=== PATIENT | female | born 1980 | race African-American/Black ===

== ENCOUNTER 2017-04-29 13:15 | Emergency (ER) | payer SELFPAY, OTHER, MEDICARE ==
[2017-04-29] MEDS ORDERED: HEPARIN (100 UNITS/ML) 5 ML SYG CATHETER (18:30)
== END 2017-04-29 19:25 | disposition home or self-care (01) ==
LOC: E/R 13:15 → FTE 19:25
DX: Z45.2 Encounter for adjustment and management of vascular access device (principal); I50.9 Heart failure, unspecified
CPT/HCPCS: 99282

== ENCOUNTER 2017-06-12 07:15 | Emergency (ER) | payer MEDICARE, OTHER ==
[2017-06-12] MEDS ORDERED: ACETAMINOPHEN 325 MG TAB PO (08:00)
[2017-06-12] MEDS: SOD CHLORIDE 0.9% 1,000 ML IV (08:42)
[2017-06-12] MEDS: DIPHENHYDRAMINE 50 MG INJ IV (08:42)
[2017-06-12] MEDS: HYDROmorphONE 0.5 MG/0.5 ML SYG IV ×2 (08:42→10:20)
[2017-06-12 08:44] LABS: ADD MAN DIFF? NO
[2017-06-12 08:47] LABS: BASOPHILS % 0.3 % (0.0-2.0); EOSINOPHILS # 0.1 10^3/ul (0.0-0.5); EOSINOPHILS % 1.2 % (0.0-7.0); HEMATOCRIT 28.2 % (37.0-47.0); HEMOGLOBIN 10.4 g/dl (12.0-16.0); LYMPHOCYTES # 2.1 10^3/ul (0.8-2.9); LYMPHOCYTES % 18.3 % (15.0-51.0); MEAN CORPUSCULAR HGB CONC 36.9 g/dl (32.0-37.0); MEAN CORPUSCULAR VOLUME 73.2 fl (82.0-101.0); MEAN PLATELET VOLUME 9.2 fl (7.4-10.4); MONOCYTE # 0.7 10^3/ul (0.3-0.9); MONOCYTES % 6.1 % (0.0-11.0); NEUTROPHIL # 8.4 10^3/ul (1.6-7.5); NEUTROPHILS % 73.8 % (39.0-77.0); PLATELET COUNT 270 10^3/UL (140-415); RED BLOOD COUNT 3.85 10^6/ul (4.20-5.40); RED CELL DISTRIBUTION WIDTH 18.6 % (11.5-14.5); RETICULOCYTE COUNT # 0.102 X10^6 (0.020-0.110); RETICULOCYTE COUNT % 2.6 % (0.5-1.5); RETICULOCYTE RBC 3.85
[2017-06-12 08:47] LABS: WHITE BLOOD COUNT 11.3 10^3/ul (4.8-10.8)
[2017-06-12 09:03] LABS: ANION GAP 18 (8-16); BLOOD UREA NITROGEN 7 mg/dl (7-20); CALCIUM 8.9 mg/dl (8.4-10.2); CARBON DIOXIDE 23 mmol/L (21-31); CHLORIDE 106 mmol/L (97-110); CREATININE 0.73 mg/dl (0.44-1.00); GLUCOSE 108 mg/dl (70-220); POTASSIUM 3.5 mmol/L (3.5-5.1); SODIUM 143 mmol/L (135-144)
[2017-06-12 09:24] LABS: TROPONIN-I < 0.012 ng/ml (0.00-0.12)
[2017-06-12] MEDS: HEPARIN (10 UNITS/ML) 5ML SYG CATHETER (11:43)
== END 2017-06-12 12:01 | disposition home or self-care (01) ==
LOC: E/R 07:15
DX: D57.219 Sickle-cell/Hb-C disease with crisis, unspecified (principal); I50.9 Heart failure, unspecified; R40.2142 Coma scale, eyes open, spontaneous, at arrival to emergency department; R40.2252 Coma scale, best verbal response, oriented, at arrival to emergency department; R40.2362 Coma scale, best motor response, obeys commands, at arrival to emergency department; R07.9 Chest pain, unspecified
CPT/HCPCS: 36415; 71045; 80048; 84484; 85025; 85045; 85660; 93005; 96374; 96375; 96376; 99285-25

== ENCOUNTER 2017-06-12 17:26 | Inpatient (IN) | payer MEDICARE, OTHER ==
[2017-06-12] MEDS: SOD CHLORIDE 0.9% 1,000 ML IV ×2 (19:19→20:03)
[2017-06-12] MEDS: HYDROmorphONE 0.5 MG/0.5 ML SYG IV ×2 (19:20→22:55)
[2017-06-12] MEDS: FAMOTIDINE 20 MG INJ IV ×2 (19:20→21:00)
[2017-06-12] MEDS ORDERED: DIPHENHYDRAMINE 50 MG INJ (19:21)
[2017-06-12] MEDS: METOCLOPRAMIDE 10 MG INJ IV ×2 (19:24→22:55)
[2017-06-12 19:41] LABS: ADD MAN DIFF? NO
[2017-06-12 19:47] LABS: BASOPHILS % 0.2 % (0.0-2.0); EOSINOPHILS # 0.1 10^3/ul (0.0-0.5); EOSINOPHILS % 0.4 % (0.0-7.0); HEMOGLOBIN 10.3 g/dl (12.0-16.0); LYMPHOCYTES # 1.2 10^3/ul (0.8-2.9); LYMPHOCYTES % 8.8 % (15.0-51.0); MEAN CORPUSCULAR HEMOGLOBIN 26.8 pg (29.0-33.0); MEAN CORPUSCULAR HGB CONC 36.8 g/dl (32.0-37.0); MEAN CORPUSCULAR VOLUME 72.9 fl (82.0-101.0); MEAN PLATELET VOLUME 9.2 fl (7.4-10.4); MONOCYTE # 0.7 10^3/ul (0.3-0.9); MONOCYTES % 5.2 % (0.0-11.0); NEUTROPHIL # 11.9 10^3/ul (1.6-7.5); NEUTROPHILS % 84.8 % (39.0-77.0); PLATELET COUNT 217 10^3/UL (140-415); RED BLOOD COUNT 3.84 10^6/ul (4.20-5.40); RED CELL DISTRIBUTION WIDTH 18.6 % (11.5-14.5); RETICULOCYTE COUNT # 0.106 X10^6 (0.020-0.110); RETICULOCYTE COUNT % 2.8 % (0.5-1.5); RETICULOCYTE RBC 3.84
[2017-06-12 19:47] LABS: WHITE BLOOD COUNT 14.1 10^3/ul (4.8-10.8)
[2017-06-12 20:11] LABS: LACTIC ACID 1.2 mmol/L (0.5-2.0)
[2017-06-12 20:11] LABS: ALANINE AMINOTRANSFERASE 29 IU/L (13-69); ALBUMIN 4.4 g/dl (3.3-4.9); ALBUMIN/GLOBULIN RATIO 1.33; ALKALINE PHOSPHATASE 90 IU/L (42-121); AMYLASE 96 U/L (11-123); ANION GAP 21 (8-16); ASPARTATE AMINO TRANSFERASE 34 IU/L (15-46); BILIRUBIN,INDIRECT 0.8 mg/dl (0-1.1); BILIRUBIN,TOTAL 0.8 mg/dl (0.2-1.3); BLOOD UREA NITROGEN 4 mg/dl (7-20); CALCIUM 8.8 mg/dl (8.4-10.2); CARBON DIOXIDE 22 mmol/L (21-31); CHLORIDE 105 mmol/L (97-110); CREATININE 0.65 mg/dl (0.44-1.00); GLUCOSE 94 mg/dl (70-220); LIPASE 177 U/L (23-300); SODIUM 144 mmol/L (135-144); TOTAL PROTEIN 7.7 g/dl (6.1-8.1)
[2017-06-12] MEDS ORDERED: ONDANSETRON 4 MG INJ IV (20:30)
[2017-06-12] MEDS ORDERED: ACETAMINOPHEN 325 MG TAB PO (20:30)
[2017-06-12] MEDS: morphine 2 MG INJ IV (22:02)
[2017-06-12] MEDS: DIPHENHYDRAMINE 50 MG INJ IV (22:55)
[2017-06-13] MEDS: morphine 2 MG INJ IV (02:05)
[2017-06-13] MEDS: METOCLOPRAMIDE 10 MG INJ IV ×2 (02:39→10:32)
[2017-06-13] MEDS: DIPHENHYDRAMINE 50 MG INJ IV ×5 (02:40→21:59)
[2017-06-13] MEDS: NACL 0.9% 3 ML SYG IV (02:41)
[2017-06-13] MEDS: HYDROmorphONE 2 MG/ML SYG IV ×5 (06:05→21:59)
[2017-06-13] MEDS: SOD CHLORIDE 0.9% 1,000 ML IV ×3 (06:09→17:41)
[2017-06-13 06:14] LABS: ADD MAN DIFF? NO
[2017-06-13 06:22] LABS: WHITE BLOOD COUNT 13.8 10^3/ul (4.8-10.8)
[2017-06-13 06:22] LABS: BASOPHILS % 0.1 % (0.0-2.0); EOSINOPHILS # 0.1 10^3/ul (0.0-0.5); EOSINOPHILS % 0.7 % (0.0-7.0); HEMATOCRIT 27.2 % (37.0-47.0); HEMOGLOBIN 9.9 g/dl (12.0-16.0); LYMPHOCYTES # 1.9 10^3/ul (0.8-2.9); LYMPHOCYTES % 14.1 % (15.0-51.0); MEAN CORPUSCULAR HEMOGLOBIN 26.8 pg (29.0-33.0); MEAN CORPUSCULAR HGB CONC 36.4 g/dl (32.0-37.0); MEAN CORPUSCULAR VOLUME 73.7 fl (82.0-101.0); MEAN PLATELET VOLUME 9.4 fl (7.4-10.4); MONOCYTE # 0.7 10^3/ul (0.3-0.9); MONOCYTES % 4.9 % (0.0-11.0); NEUTROPHILS % 79.9 % (39.0-77.0); PLATELET COUNT 201 10^3/UL (140-415); RED BLOOD COUNT 3.69 10^6/ul (4.20-5.40); RED CELL DISTRIBUTION WIDTH 18.8 % (11.5-14.5)
[2017-06-13 07:21] LABS: ALANINE AMINOTRANSFERASE 32 IU/L (13-69); ALBUMIN 4.3 g/dl (3.3-4.9); ALKALINE PHOSPHATASE 89 IU/L (42-121); ANION GAP 20 (8-16); ASPARTATE AMINO TRANSFERASE 24 IU/L (15-46); BILIRUBIN,INDIRECT 0.7 mg/dl (0-1.1); BILIRUBIN,TOTAL 0.7 mg/dl (0.2-1.3); BLOOD UREA NITROGEN 3 mg/dl (7-20); CALCIUM 8.6 mg/dl (8.4-10.2); CARBON DIOXIDE 22 mmol/L (21-31); CHLORIDE 107 mmol/L (97-110); CREATININE 0.66 mg/dl (0.44-1.00); GLUCOSE 103 mg/dl (70-220); POTASSIUM 3.6 mmol/L (3.5-5.1); SODIUM 145 mmol/L (135-144); TOTAL PROTEIN 7.6 g/dl (6.1-8.1)
[2017-06-13] MEDS: FAMOTIDINE 20 MG INJ IV ×2 (08:44→21:59)
[2017-06-13] MEDS: ENOXAPARIN 30 MG/0.3 ML SYG SC (08:46)
[2017-06-14] MEDS: HYDROmorphONE 2 MG/ML SYG IV ×6 (01:48→21:24)
[2017-06-14] MEDS: DIPHENHYDRAMINE 50 MG INJ IV ×6 (01:49→21:24)
[2017-06-14] MEDS: SOD CHLORIDE 0.9% 1,000 ML IV ×4 (02:03→16:06)
[2017-06-14 06:13] LABS: ADD MAN DIFF? NO
[2017-06-14 06:22] LABS: WHITE BLOOD COUNT 15.8 10^3/ul (4.8-10.8)
[2017-06-14 06:22] LABS: BASOPHIL # 0.1 10^3/ul (0.0-0.1); BASOPHILS % 0.4 % (0.0-2.0); EOSINOPHILS # 0.5 10^3/ul (0.0-0.5); EOSINOPHILS % 3.4 % (0.0-7.0); HEMATOCRIT 27.4 % (37.0-47.0); LYMPHOCYTES # 3.7 10^3/ul (0.8-2.9); LYMPHOCYTES % 23.4 % (15.0-51.0); MEAN CORPUSCULAR HGB CONC 36.5 g/dl (32.0-37.0); MEAN CORPUSCULAR VOLUME 73.9 fl (82.0-101.0); MEAN PLATELET VOLUME 9.3 fl (7.4-10.4); MONOCYTES % 6.5 % (0.0-11.0); NEUTROPHIL # 10.4 10^3/ul (1.6-7.5); NEUTROPHILS % 65.9 % (39.0-77.0); NUCLEATED RED BLOOD CELLS% 0.1 /100WBC (0.0-0.0); PLATELET COUNT 201 10^3/UL (140-415); RED BLOOD COUNT 3.71 10^6/ul (4.20-5.40)
[2017-06-14 06:38] LABS: ANION GAP 20 (8-16); BLOOD UREA NITROGEN 4 mg/dl (7-20); CALCIUM 8.7 mg/dl (8.4-10.2); CARBON DIOXIDE 22 mmol/L (21-31); CHLORIDE 105 mmol/L (97-110); CREATININE 0.66 mg/dl (0.44-1.00); GLUCOSE 95 mg/dl (70-220); POTASSIUM 3.5 mmol/L (3.5-5.1); SODIUM 143 mmol/L (135-144)
[2017-06-14] MEDS: FAMOTIDINE 20 MG INJ IV ×2 (08:25→20:30)
[2017-06-14] MEDS: ENOXAPARIN 30 MG/0.3 ML SYG SC (08:30)
[2017-06-14] MEDS: ACETAMINOPHEN 325 MG TAB PO (20:30)
[2017-06-14 23:53] LABS: LACTIC ACID 1.1 mmol/L (0.5-2.0)
[2017-06-15] MEDS: DIPHENHYDRAMINE 50 MG INJ IV ×6 (01:16→20:29)
[2017-06-15] MEDS: HYDROmorphONE 2 MG/ML SYG IV ×6 (01:16→20:30)
[2017-06-15] MEDS: SOD CHLORIDE 0.9% 1,000 ML IV ×4 (02:41→11:30)
[2017-06-15] MEDS: DOCUSATE SODIUM 100 MG CAP PO (05:11)
[2017-06-15 06:13] LABS: WHITE BLOOD COUNT 18.6 10^3/ul (4.8-10.8)
[2017-06-15 06:13] LABS: HEMATOCRIT 20.8 % (37.0-47.0); HEMOGLOBIN 7.5 g/dl (12.0-16.0); MEAN CORPUSCULAR HEMOGLOBIN 26.7 pg (29.0-33.0); MEAN CORPUSCULAR HGB CONC 36.1 g/dl (32.0-37.0); MEAN PLATELET VOLUME 9.1 fl (7.4-10.4); NUCLEATED RED BLOOD CELLS% 0.5 /100WBC (0.0-0.0); PLATELET COUNT 133 10^3/UL (140-415); RED BLOOD COUNT 2.81 10^6/ul (4.20-5.40)
[2017-06-15 06:28] LABS: ANION GAP 16 (8-16); BLOOD UREA NITROGEN 4 mg/dl (7-20); CALCIUM 8.2 mg/dl (8.4-10.2); CARBON DIOXIDE 24 mmol/L (21-31); CHLORIDE 106 mmol/L (97-110); CREATININE 0.65 mg/dl (0.44-1.00); GLUCOSE 98 mg/dl (70-220); SODIUM 143 mmol/L (135-144)
[2017-06-15 06:33] LABS: LACTIC ACID 1.7 mmol/L (0.5-2.0)
[2017-06-15 06:35] LABS: POTASSIUM 2.9 mmol/L (3.5-5.1)
[2017-06-15 07:22] LABS: ADD MAN DIFF? YES
[2017-06-15] MEDS ORDERED: LEVOFLOXACIN 500 MG TAB PO (07:30)
[2017-06-15] MEDS: LEVOFLOXACIN 500MG/D5W (PMX) 100 ML IVPB ×2 (07:30→08:11)
[2017-06-15] MEDS: POTASSIUM CHLORIDE (SR) 10 MEQ TAB PO ×2 (08:10→12:05)
[2017-06-15] MEDS: ENOXAPARIN 30 MG/0.3 ML SYG SC (08:12)
[2017-06-15] MEDS: FAMOTIDINE 20 MG INJ IV ×2 (08:12→21:18)
[2017-06-15] MEDS ORDERED: VANCOMYCIN IV PER PHARMACY XX (08:30)
[2017-06-15] MEDS: POTASSIUM CHLORIDE 30 MEQ in SOD CHLORIDE 0.9% 1,000 ML IV (08:31)
[2017-06-15] MEDS: ACETAMINOPHEN 325 MG TAB PO (09:28)
[2017-06-15] MEDS: CEFEPIME 1GM/50 ML (PMX) 50 ML IVPB ×2 (10:04→21:18)
[2017-06-15] MEDS: VANCOMYCIN 2 GM in DEXTROSE 5% 500 ML IVPB (17:11)
[2017-06-15 21:54] LABS: AHG CROSSMATCH 1 1
[2017-06-15] MEDS ORDERED: HYDROmorphONE 4 MG TAB PO (22:30)
[2017-06-15] MEDS ORDERED: VANCOMYCIN 1.5 GM in SOD CHLORIDE 0.9% 250 ML IVPB (22:30)
[2017-06-16] MEDS: DIPHENHYDRAMINE 50 MG INJ IV ×7 (00:31→23:18)
[2017-06-16] MEDS: HYDROmorphONE 2 MG/ML SYG IV ×4 (00:32→11:20)
[2017-06-16] MEDS: POTASSIUM CHLORIDE 30 MEQ in SOD CHLORIDE 0.9% 1,000 ML IV ×4 (01:51→21:42)
[2017-06-16] MEDS: morphine (ER) 15 MG TAB PO ×3 (06:37→21:40)
[2017-06-16] MEDS: VANCOMYCIN 1.5 GM in SOD CHLORIDE 0.9% 250 ML IVPB (06:37)
[2017-06-16 07:45] LABS: ADD MAN DIFF? NO
[2017-06-16 07:54] LABS: BASOPHIL # 0.1 10^3/ul (0.0-0.1); BASOPHILS % 0.4 % (0.0-2.0); EOSINOPHILS # 0.9 10^3/ul (0.0-0.5); EOSINOPHILS % 5.8 % (0.0-7.0); HEMATOCRIT 23.2 % (37.0-47.0); HEMOGLOBIN 8.3 g/dl (12.0-16.0); LYMPHOCYTES # 2.9 10^3/ul (0.8-2.9); LYMPHOCYTES % 18.9 % (15.0-51.0); MEAN CORPUSCULAR HGB CONC 35.8 g/dl (32.0-37.0); MEAN CORPUSCULAR VOLUME 75.6 fl (82.0-101.0); MEAN PLATELET VOLUME 9.5 fl (7.4-10.4); MONOCYTE # 0.9 10^3/ul (0.3-0.9); NEUTROPHIL # 10.4 10^3/ul (1.6-7.5); NEUTROPHILS % 68.4 % (39.0-77.0); NUCLEATED RED BLOOD CELLS # 0.1 10^3/ul (0.0-0.0); NUCLEATED RED BLOOD CELLS% 0.9 /100WBC (0.0-0.0); PLATELET COUNT 147 10^3/UL (140-415); RED BLOOD COUNT 3.07 10^6/ul (4.20-5.40); RED CELL DISTRIBUTION WIDTH 18.9 % (11.5-14.5)
[2017-06-16 07:54] LABS: WHITE BLOOD COUNT 15.2 10^3/ul (4.8-10.8)
[2017-06-16] MEDS: SERTRALINE 100 MG TAB PO (08:13)
[2017-06-16] MEDS: GABAPENTIN 300 MG CAP PO ×3 (08:13→20:51)
[2017-06-16] MEDS: FAMOTIDINE 20 MG INJ IV ×2 (08:13→20:50)
[2017-06-16] MEDS: BUSPIRONE 10 MG TAB PO ×2 (08:13→20:51)
[2017-06-16] MEDS: CEFEPIME 1GM/50 ML (PMX) 50 ML IVPB ×2 (08:14→20:50)
[2017-06-16] MEDS: MULTIVITAMINS THERAPEUTIC TAB PO (08:14)
[2017-06-16 08:15] LABS: LACTIC ACID 0.7 mmol/L (0.5-2.0)
[2017-06-16] MEDS: ENOXAPARIN 30 MG/0.3 ML SYG SC (08:17)
[2017-06-16 08:18] LABS: ANION GAP 15 (8-16); BLOOD UREA NITROGEN 4 mg/dl (7-20); CALCIUM 8.1 mg/dl (8.4-10.2); CARBON DIOXIDE 25 mmol/L (21-31); CHLORIDE 106 mmol/L (97-110); GLUCOSE 82 mg/dl (70-220); POTASSIUM 3.5 mmol/L (3.5-5.1); SODIUM 142 mmol/L (135-144)
[2017-06-16 10:18] LABS: ADD UMIC YES; UR ASCORBIC ACID NEGATIVE (NEGATIVE); UR BACTERIA FEW /HPF (NONE SEEN); UR BILIRUBIN (Dip) NEGATIVE (NEGATIVE); UR BLOOD (Dip) 3+ mg/dL (NEGATIVE); UR CLARITY CLEAR (CLEAR); UR COLOR YELLOW (YELLOW); UR GLUCOSE (Dip) NEGATIVE (NEGATIVE); UR KETONES (Dip) NEGATIVE (NEGATIVE); UR LEUKOCYTE ESTERASE (Dip) NEGATIVE Leu/ul (NEGATIVE); UR NITRITE (Dip) NEGATIVE (NEGATIVE); UR RBC 74 /HPF (0-5); UR SPECIFIC GRAVITY (Dip) 1.008 (1.003-1.030); UR TOTAL PROTEIN (Dip) NEGATIVE (NEGATIVE); UR UROBILINOGEN (Dip) NEGATIVE (NEGATIVE); UR WBC 4 /HPF (0-5)
[2017-06-16] MEDS: ACETAMINOPHEN 325 MG TAB PO (12:29)
[2017-06-16] MEDS: SOD CHLORIDE 0.9% 1,000 ML IV (12:46)
[2017-06-16] MEDS: FUROSEMIDE 40 MG INJ IV (13:09)
[2017-06-16] MEDS: HYDROmorphONE 0.5 MG/0.5 ML SYG IV ×3 (15:22→23:18)
[2017-06-17] MEDS: HYDROmorphONE 0.5 MG/0.5 ML SYG IV ×5 (03:15→20:24)
[2017-06-17] MEDS: DIPHENHYDRAMINE 50 MG INJ IV ×5 (03:15→20:24)
[2017-06-17] MEDS: morphine (ER) 15 MG TAB PO ×3 (05:49→22:27)
[2017-06-17] MEDS: SERTRALINE 100 MG TAB PO (08:43)
[2017-06-17] MEDS: CEFEPIME 1GM/50 ML (PMX) 50 ML IVPB (08:43)
[2017-06-17] MEDS: BUSPIRONE 10 MG TAB PO ×2 (08:43→20:24)
[2017-06-17] MEDS: FAMOTIDINE 20 MG INJ IV ×2 (08:43→20:24)
[2017-06-17] MEDS: GABAPENTIN 300 MG CAP PO ×3 (08:44→20:24)
[2017-06-17] MEDS: MULTIVITAMINS THERAPEUTIC TAB PO (08:45)
[2017-06-17] MEDS: ENOXAPARIN 30 MG/0.3 ML SYG SC (09:17)
[2017-06-17] MEDS: POTASSIUM CHLORIDE 30 MEQ in SOD CHLORIDE 0.9% 1,000 ML IV (13:31)
[2017-06-17 14:10] LABS: ADD MAN DIFF? NO
[2017-06-17 14:12] LABS: BASOPHIL # 0.1 10^3/ul (0.0-0.1); BASOPHILS % 0.3 % (0.0-2.0); EOSINOPHILS # 1.1 10^3/ul (0.0-0.5); EOSINOPHILS % 7.4 % (0.0-7.0); HEMATOCRIT 22.5 % (37.0-47.0); LYMPHOCYTES # 3.4 10^3/ul (0.8-2.9); LYMPHOCYTES % 22.4 % (15.0-51.0); MEAN CORPUSCULAR HEMOGLOBIN 26.8 pg (29.0-33.0); MEAN CORPUSCULAR HGB CONC 35.6 g/dl (32.0-37.0); MEAN CORPUSCULAR VOLUME 75.5 fl (82.0-101.0); MEAN PLATELET VOLUME 9.3 fl (7.4-10.4); MONOCYTE # 0.7 10^3/ul (0.3-0.9); MONOCYTES % 4.8 % (0.0-11.0); NEUTROPHIL # 9.8 10^3/ul (1.6-7.5); NEUTROPHILS % 64.8 % (39.0-77.0); NUCLEATED RED BLOOD CELLS # 0.3 10^3/ul (0.0-0.0); NUCLEATED RED BLOOD CELLS% 1.7 /100WBC (0.0-0.0); PLATELET COUNT 156 10^3/UL (140-415); RED BLOOD COUNT 2.98 10^6/ul (4.20-5.40); RED CELL DISTRIBUTION WIDTH 19.3 % (11.5-14.5)
[2017-06-17 14:12] LABS: WHITE BLOOD COUNT 15.1 10^3/ul (4.8-10.8)
[2017-06-17 14:33] LABS: ANION GAP 13 (8-16); BLOOD UREA NITROGEN 6 mg/dl (7-20); CALCIUM 7.9 mg/dl (8.4-10.2); CARBON DIOXIDE 28 mmol/L (21-31); CHLORIDE 105 mmol/L (97-110); CREATININE 0.71 mg/dl (0.44-1.00); GLUCOSE 123 mg/dl (70-220); POTASSIUM 3.2 mmol/L (3.5-5.1); SODIUM 143 mmol/L (135-144)
[2017-06-17] MEDS: BISACODYL (EC) 5 MG TAB PO (17:42)
[2017-06-17] MEDS: DOCUSATE SODIUM 100 MG CAP PO (20:24)
[2017-06-17] MEDS: CEFAZOLIN 1 GM/50 ML (PMX) 50 ML IVPB (22:26)
[2017-06-17] MEDS: POLYETHYLENE GLYCOL 17 GM PACKET PO (22:26)
[2017-06-17] MEDS: SENNA TAB PO (22:27)
[2017-06-18] MEDS: DIPHENHYDRAMINE 50 MG INJ IV ×6 (00:12→20:35)
[2017-06-18] MEDS: HYDROmorphONE 0.5 MG/0.5 ML SYG IV ×4 (00:12→12:15)
[2017-06-18] MEDS: morphine (ER) 15 MG TAB PO ×3 (06:25→22:04)
[2017-06-18] MEDS: CEFAZOLIN 1 GM/50 ML (PMX) 50 ML IVPB ×3 (06:25→21:59)
[2017-06-18 07:26] LABS: ADD MAN DIFF? NO
[2017-06-18 07:36] LABS: WHITE BLOOD COUNT 13.3 10^3/ul (4.8-10.8)
[2017-06-18 07:36] LABS: BASOPHILS % 0.2 % (0.0-2.0); EOSINOPHILS # 1.1 10^3/ul (0.0-0.5); EOSINOPHILS % 8.2 % (0.0-7.0); HEMATOCRIT 22.3 % (37.0-47.0); LYMPHOCYTES # 2.6 10^3/ul (0.8-2.9); LYMPHOCYTES % 19.8 % (15.0-51.0); MEAN CORPUSCULAR HEMOGLOBIN 27.1 pg (29.0-33.0); MEAN CORPUSCULAR HGB CONC 35.9 g/dl (32.0-37.0); MEAN CORPUSCULAR VOLUME 75.6 fl (82.0-101.0); MEAN PLATELET VOLUME 9.9 fl (7.4-10.4); MONOCYTE # 0.8 10^3/ul (0.3-0.9); MONOCYTES % 5.9 % (0.0-11.0); NEUTROPHIL # 8.8 10^3/ul (1.6-7.5); NEUTROPHILS % 65.6 % (39.0-77.0); NUCLEATED RED BLOOD CELLS # 0.1 10^3/ul (0.0-0.0); NUCLEATED RED BLOOD CELLS% 0.9 /100WBC (0.0-0.0); PLATELET COUNT 192 10^3/UL (140-415); RED BLOOD COUNT 2.95 10^6/ul (4.20-5.40); RED CELL DISTRIBUTION WIDTH 19.6 % (11.5-14.5)
[2017-06-18 07:48] LABS: ANION GAP 13 (8-16); BLOOD UREA NITROGEN 6 mg/dl (7-20); CALCIUM 8.1 mg/dl (8.4-10.2); CARBON DIOXIDE 29 mmol/L (21-31); CHLORIDE 103 mmol/L (97-110); CREATININE 0.62 mg/dl (0.44-1.00); GLUCOSE 147 mg/dl (70-220); POTASSIUM 3.4 mmol/L (3.5-5.1); SODIUM 142 mmol/L (135-144)
[2017-06-18] MEDS: BUSPIRONE 10 MG TAB PO ×2 (08:09→20:41)
[2017-06-18] MEDS: DOCUSATE SODIUM 100 MG CAP PO ×2 (08:09→20:41)
[2017-06-18] MEDS: MULTIVITAMINS THERAPEUTIC TAB PO (08:09)
[2017-06-18] MEDS: SENNA TAB PO ×2 (08:09→20:41)
[2017-06-18] MEDS: GABAPENTIN 300 MG CAP PO ×3 (08:09→20:41)
[2017-06-18] MEDS: POLYETHYLENE GLYCOL 17 GM PACKET PO ×2 (08:10→20:41)
[2017-06-18] MEDS: FAMOTIDINE 20 MG INJ IV ×2 (08:10→20:41)
[2017-06-18] MEDS: POTASSIUM CHLORIDE 30 MEQ in SOD CHLORIDE 0.9% 1,000 ML IV (08:11)
[2017-06-18] MEDS: ENOXAPARIN 30 MG/0.3 ML SYG SC (08:38)
[2017-06-18] MEDS: SERTRALINE 100 MG TAB PO (12:15)
[2017-06-18] MEDS: POTASSIUM CHLORIDE (SR) 20 MEQ TAB PO (12:15)
[2017-06-18] MEDS: HYDROmorphONE 2 MG/ML SYG IV ×2 (16:23→20:36)
[2017-06-18] MEDS: METOCLOPRAMIDE 10 MG INJ IV (16:24)
[2017-06-18] MEDS: ZOLPIDEM 5 MG TAB PO (23:41)
[2017-06-19] MEDS: DIPHENHYDRAMINE 50 MG INJ IV ×6 (00:31→20:46)
[2017-06-19] MEDS: HYDROmorphONE 2 MG/ML SYG IV ×6 (00:34→20:45)
[2017-06-19 05:08] LABS: ADD MAN DIFF? NO
[2017-06-19 05:13] LABS: WHITE BLOOD COUNT 13.4 10^3/ul (4.8-10.8)
[2017-06-19 05:13] LABS: BASOPHILS % 0.3 % (0.0-2.0); EOSINOPHILS # 1.1 10^3/ul (0.0-0.5); HEMATOCRIT 24.9 % (37.0-47.0); HEMOGLOBIN 8.9 g/dl (12.0-16.0); LYMPHOCYTES # 2.6 10^3/ul (0.8-2.9); LYMPHOCYTES % 19.4 % (15.0-51.0); MEAN CORPUSCULAR HEMOGLOBIN 27.1 pg (29.0-33.0); MEAN CORPUSCULAR HGB CONC 35.7 g/dl (32.0-37.0); MEAN CORPUSCULAR VOLUME 75.9 fl (82.0-101.0); MEAN PLATELET VOLUME 9.5 fl (7.4-10.4); MONOCYTE # 0.8 10^3/ul (0.3-0.9); MONOCYTES % 5.6 % (0.0-11.0); NEUTROPHIL # 8.9 10^3/ul (1.6-7.5); NEUTROPHILS % 66.3 % (39.0-77.0); NUCLEATED RED BLOOD CELLS # 0.1 10^3/ul (0.0-0.0); NUCLEATED RED BLOOD CELLS% 0.9 /100WBC (0.0-0.0); PLATELET COUNT 189 10^3/UL (140-415); RED BLOOD COUNT 3.28 10^6/ul (4.20-5.40); RED CELL DISTRIBUTION WIDTH 19.9 % (11.5-14.5)
[2017-06-19 05:28] LABS: ANION GAP 10 (8-16); BLOOD UREA NITROGEN 8 mg/dl (7-20); CALCIUM 8.6 mg/dl (8.4-10.2); CARBON DIOXIDE 33 mmol/L (21-31); CHLORIDE 102 mmol/L (97-110); CREATININE 0.67 mg/dl (0.44-1.00); GLUCOSE 90 mg/dl (70-220); POTASSIUM 4.3 mmol/L (3.5-5.1); SODIUM 141 mmol/L (135-144)
[2017-06-19] MEDS: morphine (ER) 15 MG TAB PO ×3 (06:00→21:55)
[2017-06-19] MEDS: CEFAZOLIN 1 GM/50 ML (PMX) 50 ML IVPB ×3 (06:00→21:55)
[2017-06-19] MEDS: POTASSIUM CHLORIDE 30 MEQ in SOD CHLORIDE 0.9% 1,000 ML IV (06:00)
[2017-06-19 06:38] LABS: MONOTEST Negative (NEG)
[2017-06-19] MEDS: MULTIVITAMINS THERAPEUTIC TAB PO (08:42)
[2017-06-19] MEDS: GABAPENTIN 300 MG CAP PO ×3 (08:42→20:47)
[2017-06-19] MEDS: BUSPIRONE 10 MG TAB PO ×2 (08:43→20:47)
[2017-06-19] MEDS: POLYETHYLENE GLYCOL 17 GM PACKET PO ×2 (08:43→20:47)
[2017-06-19] MEDS: FAMOTIDINE 20 MG INJ IV ×2 (08:43→20:46)
[2017-06-19] MEDS: SENNA TAB PO ×2 (08:43→20:48)
[2017-06-19] MEDS: SERTRALINE 100 MG TAB PO (08:43)
[2017-06-19] MEDS: DOCUSATE SODIUM 100 MG CAP PO ×2 (08:43→20:46)
[2017-06-19] MEDS: ENOXAPARIN 30 MG/0.3 ML SYG SC (08:53)
[2017-06-19 13:16] LABS: PROCALCITONIN 0.16 ng/mL (<0.10)
[2017-06-19] MEDS: ZOLPIDEM 5 MG TAB PO (22:57)
[2017-06-20] MEDS: POTASSIUM CHLORIDE 30 MEQ in SOD CHLORIDE 0.9% 1,000 ML IV ×2 (00:43→23:21)
[2017-06-20] MEDS: DIPHENHYDRAMINE 50 MG INJ IV ×6 (00:43→20:30)
[2017-06-20] MEDS: HYDROmorphONE 2 MG/ML SYG IV ×6 (00:43→20:30)
[2017-06-20] MEDS: morphine (ER) 15 MG TAB PO ×3 (05:58→22:56)
[2017-06-20] MEDS: CEFAZOLIN 1 GM/50 ML (PMX) 50 ML IVPB ×2 (05:58→13:35)
[2017-06-20] MEDS: SERTRALINE 100 MG TAB PO (08:32)
[2017-06-20] MEDS: GABAPENTIN 300 MG CAP PO ×3 (08:32→20:37)
[2017-06-20] MEDS: MULTIVITAMINS THERAPEUTIC TAB PO (08:32)
[2017-06-20] MEDS: SENNA TAB PO ×2 (08:33→21:00)
[2017-06-20] MEDS: BUSPIRONE 10 MG TAB PO ×2 (08:33→22:56)
[2017-06-20] MEDS: DOCUSATE SODIUM 100 MG CAP PO ×2 (08:34→20:37)
[2017-06-20] MEDS: POLYETHYLENE GLYCOL 17 GM PACKET PO ×2 (08:34→20:38)
[2017-06-20] MEDS: FAMOTIDINE 20 MG INJ IV ×2 (08:34→22:56)
[2017-06-20] MEDS: ENOXAPARIN 30 MG/0.3 ML SYG SC (08:40)
[2017-06-20] MEDS: CEFTRIAXONE 1 GM/50 ML (PMX) 50 ML IVPB (21:00)
[2017-06-20] MEDS: LEVOFLOXACIN 500 MG TAB PO ×2 (21:05→22:57)
[2017-06-20] MEDS: ZOLPIDEM 5 MG TAB PO (23:31)
[2017-06-21] MEDS: DIPHENHYDRAMINE 50 MG INJ IV ×6 (00:31→20:38)
[2017-06-21] MEDS: HYDROmorphONE 2 MG/ML SYG IV ×6 (00:32→20:39)
[2017-06-21] MEDS: POTASSIUM CHLORIDE 30 MEQ in SOD CHLORIDE 0.9% 1,000 ML IV (00:40)
[2017-06-21 04:46] LABS: ADD MAN DIFF? NO
[2017-06-21 04:51] LABS: BASOPHILS % 0.3 % (0.0-2.0); EOSINOPHILS # 0.9 10^3/ul (0.0-0.5); HEMATOCRIT 25.1 % (37.0-47.0); HEMOGLOBIN 8.7 g/dl (12.0-16.0); LYMPHOCYTES # 3.8 10^3/ul (0.8-2.9); LYMPHOCYTES % 26.4 % (15.0-51.0); MEAN CORPUSCULAR HEMOGLOBIN 26.8 pg (29.0-33.0); MEAN CORPUSCULAR HGB CONC 34.7 g/dl (32.0-37.0); MEAN CORPUSCULAR VOLUME 77.2 fl (82.0-101.0); MEAN PLATELET VOLUME 9.4 fl (7.4-10.4); MONOCYTE # 0.9 10^3/ul (0.3-0.9); MONOCYTES % 6.6 % (0.0-11.0); NEUTROPHIL # 8.5 10^3/ul (1.6-7.5); NEUTROPHILS % 59.9 % (39.0-77.0); NUCLEATED RED BLOOD CELLS # 0.2 10^3/ul (0.0-0.0); NUCLEATED RED BLOOD CELLS% 1.5 /100WBC (0.0-0.0); PLATELET COUNT 251 10^3/UL (140-415); RED BLOOD COUNT 3.25 10^6/ul (4.20-5.40); RED CELL DISTRIBUTION WIDTH 19.9 % (11.5-14.5)
[2017-06-21 04:51] LABS: WHITE BLOOD COUNT 14.2 10^3/ul (4.8-10.8)
[2017-06-21 05:22] LABS: ANION GAP 14 (8-16); BLOOD UREA NITROGEN 9 mg/dl (7-20); CARBON DIOXIDE 31 mmol/L (21-31); CHLORIDE 100 mmol/L (97-110); CREATININE 0.68 mg/dl (0.44-1.00); GLUCOSE 95 mg/dl (70-220); POTASSIUM 4.4 mmol/L (3.5-5.1); SODIUM 141 mmol/L (135-144)
[2017-06-21] MEDS: morphine (ER) 15 MG TAB PO ×3 (06:17→21:59)
[2017-06-21] MEDS: BUSPIRONE 10 MG TAB PO ×2 (08:28→20:33)
[2017-06-21] MEDS: SENNA TAB PO ×2 (08:32→20:33)
[2017-06-21] MEDS: GABAPENTIN 300 MG CAP PO ×3 (08:32→20:33)
[2017-06-21] MEDS: SERTRALINE 100 MG TAB PO (08:32)
[2017-06-21] MEDS: DOCUSATE SODIUM 100 MG CAP PO ×2 (08:33→20:34)
[2017-06-21] MEDS: MULTIVITAMINS THERAPEUTIC TAB PO (08:33)
[2017-06-21] MEDS: POLYETHYLENE GLYCOL 17 GM PACKET PO ×2 (08:33→20:32)
[2017-06-21] MEDS: ENOXAPARIN 30 MG/0.3 ML SYG SC (08:36)
[2017-06-21] MEDS: FAMOTIDINE 20 MG INJ IV ×2 (08:41→20:38)
[2017-06-21] MEDS: CEFTRIAXONE 1 GM/50 ML (PMX) 50 ML IVPB (20:32)
[2017-06-21] MEDS: ZOLPIDEM 5 MG TAB PO (23:25)
[2017-06-22] MEDS: DIPHENHYDRAMINE 50 MG INJ IV ×6 (00:28→20:28)
[2017-06-22] MEDS: HYDROmorphONE 2 MG/ML SYG IV ×6 (00:28→20:28)
[2017-06-22] MEDS: POTASSIUM CHLORIDE 30 MEQ in SOD CHLORIDE 0.9% 1,000 ML IV ×2 (00:43→23:22)
[2017-06-22 05:20] LABS: HEMATOCRIT 26.6 % (37.0-47.0); HEMOGLOBIN 9.2 g/dl (12.0-16.0); MEAN CORPUSCULAR HEMOGLOBIN 26.7 pg (29.0-33.0); MEAN CORPUSCULAR HGB CONC 34.6 g/dl (32.0-37.0); MEAN CORPUSCULAR VOLUME 77.1 fl (82.0-101.0); MEAN PLATELET VOLUME 9.2 fl (7.4-10.4); NUCLEATED RED BLOOD CELLS% 1.9 /100WBC (0.0-0.0); PLATELET COUNT 295 10^3/UL (140-415); RED BLOOD COUNT 3.45 10^6/ul (4.20-5.40); RED CELL DISTRIBUTION WIDTH 20.6 % (11.5-14.5)
[2017-06-22 05:20] LABS: WHITE BLOOD COUNT 15.1 10^3/ul (4.8-10.8)
[2017-06-22 05:22] LABS: ADD MAN DIFF? YES; POSITIVE DIFF @See below
[2017-06-22 05:43] LABS: ANION GAP 17 (8-16); BLOOD UREA NITROGEN 9 mg/dl (7-20); CALCIUM 9.3 mg/dl (8.4-10.2); CARBON DIOXIDE 30 mmol/L (21-31); CHLORIDE 99 mmol/L (97-110); CREATININE 0.78 mg/dl (0.44-1.00); GLUCOSE 102 mg/dl (70-220); POTASSIUM 4.2 mmol/L (3.5-5.1); SODIUM 142 mmol/L (135-144)
[2017-06-22] MEDS: morphine (ER) 15 MG TAB PO ×3 (05:45→21:48)
[2017-06-22] MEDS: LEVOFLOXACIN 500 MG TAB PO (05:45)
[2017-06-22 08:03] LABS: ANISOCYTOSIS 2+ (0-0); EOSINOPHILS % (M) 7 % (0-7); ERYTHROBLAST% (NRBC) (M) 3 % (0-0); GIANT THROMBO% (M) 3 % (0-0); HYPOCHROMASIA 2+ (0-0); LYMPHOCYTES #M 4.2 10^3/ul (0.8-2.9); LYMPHOCYTES % (M) 28 % (15-51); METAMYELOCYTES #M 0.1 10^3/ul (0.0-0.0); METAMYELOCYTES %M 1 % (0-0); MICROCYTOSIS 1+ (0-0); MONOCYTE #M 0.9 10^3/ul (0.3-0.9); MONOCYTES % (M) 6 % (0-11); PLATELET ESTIMATE NORMAL; POIKILOCYTOSIS 1+ (0-0); POLYCHROMASIA 2+ (0-0); REACTIVE LYMPHOCYTES #M 0.1 10^3/ul (0.0-0.0); REACTIVE LYMPHOCYTES% (M) 1 % (0-0); SEGMENTED NEUTROPHILS (M) % 57 % (39-77); SMUDGE%M 2 % (0-0); TARGET CELLS 2+ (0-0)
[2017-06-22] MEDS: FAMOTIDINE 20 MG INJ IV ×2 (08:31→20:28)
[2017-06-22] MEDS: POLYETHYLENE GLYCOL 17 GM PACKET PO ×2 (08:32→20:27)
[2017-06-22] MEDS: DOCUSATE SODIUM 100 MG CAP PO ×2 (08:33→20:25)
[2017-06-22] MEDS: SERTRALINE 100 MG TAB PO (08:33)
[2017-06-22] MEDS: BUSPIRONE 10 MG TAB PO ×2 (08:33→20:25)
[2017-06-22] MEDS: GABAPENTIN 300 MG CAP PO ×3 (08:33→20:25)
[2017-06-22] MEDS: MULTIVITAMINS THERAPEUTIC TAB PO (08:33)
[2017-06-22] MEDS: SENNA TAB PO ×2 (08:33→20:25)
[2017-06-22] MEDS: ENOXAPARIN 30 MG/0.3 ML SYG SC (08:42)
[2017-06-22] MEDS: CEFTRIAXONE 1 GM/50 ML (PMX) 50 ML IVPB (20:28)
[2017-06-22] MEDS: ZOLPIDEM 5 MG TAB PO (23:22)
[2017-06-23] MEDS: DIPHENHYDRAMINE 50 MG INJ IV ×6 (00:18→20:40)
[2017-06-23] MEDS: HYDROmorphONE 2 MG/ML SYG IV ×6 (00:18→20:33)
[2017-06-23 04:29] LABS: ADD UMIC NO; UR ASCORBIC ACID NEGATIVE (NEGATIVE); UR BILIRUBIN (Dip) NEGATIVE (NEGATIVE); UR BLOOD (Dip) NEGATIVE (NEGATIVE); UR CLARITY CLEAR (CLEAR); UR COLOR YELLOW (YELLOW); UR GLUCOSE (Dip) NEGATIVE (NEGATIVE); UR KETONES (Dip) NEGATIVE (NEGATIVE); UR LEUKOCYTE ESTERASE (Dip) NEGATIVE Leu/ul (NEGATIVE); UR NITRITE (Dip) NEGATIVE (NEGATIVE); UR SPECIFIC GRAVITY (Dip) 1.009 (1.003-1.030); UR TOTAL PROTEIN (Dip) NEGATIVE (NEGATIVE); UR UROBILINOGEN (Dip) NEGATIVE (NEGATIVE)
[2017-06-23 05:43] LABS: ADD MAN DIFF? NO
[2017-06-23 05:51] LABS: WHITE BLOOD COUNT 14.3 10^3/ul (4.8-10.8)
[2017-06-23 05:51] LABS: BASOPHILS % 0.3 % (0.0-2.0); EOSINOPHILS # 0.9 10^3/ul (0.0-0.5); EOSINOPHILS % 5.9 % (0.0-7.0); LYMPHOCYTES # 4.2 10^3/ul (0.8-2.9); LYMPHOCYTES % 29.6 % (15.0-51.0); MEAN CORPUSCULAR HEMOGLOBIN 26.8 pg (29.0-33.0); MEAN CORPUSCULAR HGB CONC 34.6 g/dl (32.0-37.0); MEAN CORPUSCULAR VOLUME 77.4 fl (82.0-101.0); MEAN PLATELET VOLUME 9.4 fl (7.4-10.4); MONOCYTE # 1.2 10^3/ul (0.3-0.9); MONOCYTES % 8.2 % (0.0-11.0); NEUTROPHILS % 55.6 % (39.0-77.0); NUCLEATED RED BLOOD CELLS # 0.1 10^3/ul (0.0-0.0); NUCLEATED RED BLOOD CELLS% 0.8 /100WBC (0.0-0.0); PLATELET COUNT 332 10^3/UL (140-415); RED BLOOD COUNT 3.36 10^6/ul (4.20-5.40); RED CELL DISTRIBUTION WIDTH 20.9 % (11.5-14.5)
[2017-06-23] MEDS: morphine (ER) 15 MG TAB PO ×3 (06:00→22:08)
[2017-06-23] MEDS: LEVOFLOXACIN 500 MG TAB PO (06:00)
[2017-06-23 06:09] LABS: ANION GAP 15 (8-16); BLOOD UREA NITROGEN 9 mg/dl (7-20); CARBON DIOXIDE 29 mmol/L (21-31); CHLORIDE 102 mmol/L (97-110); CREATININE 0.71 mg/dl (0.44-1.00); GLUCOSE 88 mg/dl (70-220); POTASSIUM 4.4 mmol/L (3.5-5.1); SODIUM 142 mmol/L (135-144)
[2017-06-23] MEDS: SERTRALINE 100 MG TAB PO (08:33)
[2017-06-23] MEDS: MULTIVITAMINS THERAPEUTIC TAB PO (08:33)
[2017-06-23] MEDS: POLYETHYLENE GLYCOL 17 GM PACKET PO ×2 (08:33→20:33)
[2017-06-23] MEDS: GABAPENTIN 300 MG CAP PO ×3 (08:33→20:29)
[2017-06-23] MEDS: BUSPIRONE 10 MG TAB PO ×2 (08:33→20:29)
[2017-06-23] MEDS: SENNA TAB PO ×2 (08:33→20:29)
[2017-06-23] MEDS: DOCUSATE SODIUM 100 MG CAP PO ×2 (08:33→20:29)
[2017-06-23] MEDS: FAMOTIDINE 20 MG INJ IV ×2 (08:34→20:28)
[2017-06-23] MEDS: ENOXAPARIN 30 MG/0.3 ML SYG SC (08:41)
[2017-06-23] MEDS: POTASSIUM CHLORIDE 30 MEQ in SOD CHLORIDE 0.9% 1,000 ML IV (20:28)
[2017-06-23] MEDS: CEFTRIAXONE 1 GM/50 ML (PMX) 50 ML IVPB (20:34)
[2017-06-23] MEDS: ZOLPIDEM 5 MG TAB PO (23:20)
[2017-06-23] MEDS: OSELTAMIVIR 75 MG CAP PO (23:20)
[2017-06-24] MEDS: HYDROmorphONE 2 MG/ML SYG IV ×6 (00:35→20:29)
[2017-06-24] MEDS: DIPHENHYDRAMINE 50 MG INJ IV ×6 (00:36→20:29)
[2017-06-24 05:08] LABS: ADD MAN DIFF? NO
[2017-06-24 05:13] LABS: BASOPHILS % 0.3 % (0.0-2.0); EOSINOPHILS # 0.8 10^3/ul (0.0-0.5); EOSINOPHILS % 6.9 % (0.0-7.0); HEMATOCRIT 24.4 % (37.0-47.0); HEMOGLOBIN 8.7 g/dl (12.0-16.0); LYMPHOCYTES # 3.3 10^3/ul (0.8-2.9); LYMPHOCYTES % 27.6 % (15.0-51.0); MEAN CORPUSCULAR HEMOGLOBIN 27.5 pg (29.0-33.0); MEAN CORPUSCULAR HGB CONC 35.7 g/dl (32.0-37.0); MEAN CORPUSCULAR VOLUME 77.2 fl (82.0-101.0); MONOCYTE # 0.9 10^3/ul (0.3-0.9); MONOCYTES % 7.6 % (0.0-11.0); NEUTROPHIL # 6.8 10^3/ul (1.6-7.5); NEUTROPHILS % 57.2 % (39.0-77.0); NUCLEATED RED BLOOD CELLS% 0.3 /100WBC (0.0-0.0); PLATELET COUNT 351 10^3/UL (140-415); RED BLOOD COUNT 3.16 10^6/ul (4.20-5.40); RED CELL DISTRIBUTION WIDTH 20.6 % (11.5-14.5)
[2017-06-24 05:13] LABS: WHITE BLOOD COUNT 11.9 10^3/ul (4.8-10.8)
[2017-06-24 05:31] LABS: ANION GAP 15 (8-16); BLOOD UREA NITROGEN 10 mg/dl (7-20); CALCIUM 8.6 mg/dl (8.4-10.2); CARBON DIOXIDE 29 mmol/L (21-31); CHLORIDE 102 mmol/L (97-110); GLUCOSE 85 mg/dl (70-220); POTASSIUM 4.1 mmol/L (3.5-5.1); SODIUM 142 mmol/L (135-144)
[2017-06-24] MEDS: morphine (ER) 15 MG TAB PO ×3 (06:09→21:47)
[2017-06-24] MEDS: LEVOFLOXACIN 500 MG TAB PO (06:09)
[2017-06-24] MEDS: FAMOTIDINE 20 MG INJ IV ×2 (08:24→21:37)
[2017-06-24] MEDS: BUSPIRONE 10 MG TAB PO ×2 (08:29→21:38)
[2017-06-24] MEDS: GABAPENTIN 300 MG CAP PO ×3 (08:29→21:37)
[2017-06-24] MEDS: SERTRALINE 100 MG TAB PO (08:30)
[2017-06-24] MEDS: POLYETHYLENE GLYCOL 17 GM PACKET PO ×2 (08:30→21:37)
[2017-06-24] MEDS: OSELTAMIVIR 75 MG CAP PO ×2 (08:30→21:38)
[2017-06-24] MEDS: MULTIVITAMINS THERAPEUTIC TAB PO (08:30)
[2017-06-24] MEDS: DOCUSATE SODIUM 100 MG CAP PO ×2 (08:30→21:38)
[2017-06-24] MEDS: SENNA TAB PO ×2 (08:30→21:39)
[2017-06-24] MEDS: ENOXAPARIN 30 MG/0.3 ML SYG SC (08:41)
[2017-06-24] MEDS: POTASSIUM CHLORIDE 30 MEQ in SOD CHLORIDE 0.9% 1,000 ML IV ×2 (12:54→18:17)
[2017-06-24] MEDS: ZOLPIDEM 5 MG TAB PO (23:18)
[2017-06-25] MEDS: HYDROmorphONE 2 MG/ML SYG IV ×6 (00:26→20:22)
[2017-06-25] MEDS: DIPHENHYDRAMINE 50 MG INJ IV ×6 (00:27→20:22)
[2017-06-25] MEDS: LEVOFLOXACIN 500 MG TAB PO (05:57)
[2017-06-25] MEDS: morphine (ER) 15 MG TAB PO ×3 (05:57→21:58)
[2017-06-25] MEDS: MULTIVITAMINS THERAPEUTIC TAB PO (08:22)
[2017-06-25] MEDS: SENNA TAB PO ×2 (08:22→20:28)
[2017-06-25] MEDS: OSELTAMIVIR 75 MG CAP PO ×2 (08:22→20:29)
[2017-06-25] MEDS: DOCUSATE SODIUM 100 MG CAP PO ×2 (08:22→20:30)
[2017-06-25] MEDS: BUSPIRONE 10 MG TAB PO ×2 (08:22→20:30)
[2017-06-25] MEDS: FAMOTIDINE 20 MG INJ IV ×2 (08:22→20:28)
[2017-06-25] MEDS: GABAPENTIN 300 MG CAP PO ×3 (08:22→20:28)
[2017-06-25] MEDS: SERTRALINE 100 MG TAB PO (08:22)
[2017-06-25] MEDS: POLYETHYLENE GLYCOL 17 GM PACKET PO ×2 (08:23→20:29)
[2017-06-25] MEDS: ENOXAPARIN 30 MG/0.3 ML SYG SC (08:32)
[2017-06-25] MEDS: POTASSIUM CHLORIDE 30 MEQ in SOD CHLORIDE 0.9% 1,000 ML IV (14:50)
[2017-06-25] MEDS: ZOLPIDEM 5 MG TAB PO (23:26)
[2017-06-26] MEDS: DIPHENHYDRAMINE 50 MG INJ IV ×6 (00:21→20:21)
[2017-06-26] MEDS: HYDROmorphONE 2 MG/ML SYG IV ×6 (00:21→20:21)
[2017-06-26] MEDS: morphine (ER) 15 MG TAB PO ×3 (06:16→21:56)
[2017-06-26] MEDS: LEVOFLOXACIN 500 MG TAB PO (06:16)
[2017-06-26] MEDS: FAMOTIDINE 20 MG INJ IV ×2 (08:26→20:39)
[2017-06-26] MEDS: DOCUSATE SODIUM 100 MG CAP PO ×2 (08:29→20:40)
[2017-06-26] MEDS: BUSPIRONE 10 MG TAB PO ×2 (08:29→20:39)
[2017-06-26] MEDS: OSELTAMIVIR 75 MG CAP PO ×2 (08:30→20:39)
[2017-06-26] MEDS: POLYETHYLENE GLYCOL 17 GM PACKET PO ×2 (08:30→20:39)
[2017-06-26] MEDS: GABAPENTIN 300 MG CAP PO ×3 (08:30→20:40)
[2017-06-26] MEDS: SENNA TAB PO ×2 (08:30→20:40)
[2017-06-26] MEDS: MULTIVITAMINS THERAPEUTIC TAB PO (08:30)
[2017-06-26] MEDS: SERTRALINE 100 MG TAB PO (08:31)
[2017-06-26] MEDS: ENOXAPARIN 30 MG/0.3 ML SYG SC (08:36)
[2017-06-26] MEDS: POTASSIUM CHLORIDE 30 MEQ in SOD CHLORIDE 0.9% 1,000 ML IV (14:05)
[2017-06-26] MEDS: ZOLPIDEM 5 MG TAB PO (23:04)
[2017-06-27] MEDS: DIPHENHYDRAMINE 50 MG INJ IV ×6 (00:29→20:18)
[2017-06-27] MEDS: HYDROmorphONE 2 MG/ML SYG IV ×6 (00:30→20:18)
[2017-06-27 05:08] LABS: ADD MAN DIFF? NO
[2017-06-27 05:14] LABS: BASOPHILS % 0.4 % (0.0-2.0); EOSINOPHILS # 1.2 10^3/ul (0.0-0.5); EOSINOPHILS % 11.2 % (0.0-7.0); HEMATOCRIT 23.9 % (37.0-47.0); HEMOGLOBIN 8.4 g/dl (12.0-16.0); LYMPHOCYTES # 3.1 10^3/ul (0.8-2.9); LYMPHOCYTES % 28.8 % (15.0-51.0); MEAN CORPUSCULAR HEMOGLOBIN 26.9 pg (29.0-33.0); MEAN CORPUSCULAR HGB CONC 35.1 g/dl (32.0-37.0); MEAN CORPUSCULAR VOLUME 76.6 fl (82.0-101.0); MONOCYTE # 0.7 10^3/ul (0.3-0.9); MONOCYTES % 6.2 % (0.0-11.0); NEUTROPHIL # 5.6 10^3/ul (1.6-7.5); NUCLEATED RED BLOOD CELLS% 0.2 /100WBC (0.0-0.0); PLATELET COUNT 328 10^3/UL (140-415); RED BLOOD COUNT 3.12 10^6/ul (4.20-5.40); RED CELL DISTRIBUTION WIDTH 20.1 % (11.5-14.5)
[2017-06-27 05:14] LABS: WHITE BLOOD COUNT 10.6 10^3/ul (4.8-10.8)
[2017-06-27] MEDS: LEVOFLOXACIN 500 MG TAB PO (05:37)
[2017-06-27] MEDS: morphine (ER) 15 MG TAB PO ×3 (05:38→21:52)
[2017-06-27 05:47] LABS: ANION GAP 16 (8-16); BLOOD UREA NITROGEN 9 mg/dl (7-20); CALCIUM 8.9 mg/dl (8.4-10.2); CARBON DIOXIDE 29 mmol/L (21-31); CHLORIDE 103 mmol/L (97-110); CREATININE 0.73 mg/dl (0.44-1.00); GLUCOSE 87 mg/dl (70-220); SODIUM 144 mmol/L (135-144)
[2017-06-27] MEDS: FAMOTIDINE 20 MG INJ IV ×2 (08:34→20:17)
[2017-06-27] MEDS: DOCUSATE SODIUM 100 MG CAP PO ×2 (08:35→20:18)
[2017-06-27] MEDS: BUSPIRONE 10 MG TAB PO ×2 (08:36→20:17)
[2017-06-27] MEDS: SENNA TAB PO ×2 (08:36→20:17)
[2017-06-27] MEDS: GABAPENTIN 300 MG CAP PO ×3 (08:36→20:17)
[2017-06-27] MEDS: OSELTAMIVIR 75 MG CAP PO ×2 (08:36→20:18)
[2017-06-27] MEDS: MULTIVITAMINS THERAPEUTIC TAB PO (08:36)
[2017-06-27] MEDS: SERTRALINE 100 MG TAB PO (08:36)
[2017-06-27] MEDS: POLYETHYLENE GLYCOL 17 GM PACKET PO ×2 (08:37→20:18)
[2017-06-27] MEDS: ENOXAPARIN 30 MG/0.3 ML SYG SC (08:38)
[2017-06-27] MEDS: POTASSIUM CHLORIDE 30 MEQ in SOD CHLORIDE 0.9% 1,000 ML IV (08:40)
[2017-06-27] MEDS: ZOLPIDEM 5 MG TAB PO (22:59)
[2017-06-28] MEDS: HYDROmorphONE 2 MG/ML SYG IV ×5 (04:21→20:19)
[2017-06-28] MEDS: DIPHENHYDRAMINE 50 MG INJ IV ×5 (04:21→20:18)
[2017-06-28 05:16] LABS: ADD MAN DIFF? NO
[2017-06-28 05:20] LABS: WHITE BLOOD COUNT 11.9 10^3/ul (4.8-10.8)
[2017-06-28 05:20] LABS: BASOPHILS % 0.3 % (0.0-2.0); EOSINOPHILS # 1.5 10^3/ul (0.0-0.5); EOSINOPHILS % 12.2 % (0.0-7.0); HEMATOCRIT 23.9 % (37.0-47.0); HEMOGLOBIN 8.7 g/dl (12.0-16.0); LYMPHOCYTES # 3.1 10^3/ul (0.8-2.9); LYMPHOCYTES % 25.8 % (15.0-51.0); MEAN CORPUSCULAR HEMOGLOBIN 27.7 pg (29.0-33.0); MEAN CORPUSCULAR HGB CONC 36.4 g/dl (32.0-37.0); MEAN CORPUSCULAR VOLUME 76.1 fl (82.0-101.0); MEAN PLATELET VOLUME 9.4 fl (7.4-10.4); MONOCYTE # 0.9 10^3/ul (0.3-0.9); MONOCYTES % 7.6 % (0.0-11.0); NEUTROPHIL # 6.4 10^3/ul (1.6-7.5); NEUTROPHILS % 53.8 % (39.0-77.0); NUCLEATED RED BLOOD CELLS% 0.2 /100WBC (0.0-0.0); PLATELET COUNT 365 10^3/UL (140-415); RED BLOOD COUNT 3.14 10^6/ul (4.20-5.40); RED CELL DISTRIBUTION WIDTH 20.3 % (11.5-14.5)
[2017-06-28] MEDS: morphine (ER) 15 MG TAB PO ×3 (05:40→21:49)
[2017-06-28] MEDS: LEVOFLOXACIN 500 MG TAB PO (05:41)
[2017-06-28 05:52] LABS: ANION GAP 14 (8-16); BLOOD UREA NITROGEN 10 mg/dl (7-20); CARBON DIOXIDE 28 mmol/L (21-31); CHLORIDE 103 mmol/L (97-110); CREATININE 0.71 mg/dl (0.44-1.00); GLUCOSE 77 mg/dl (70-220); SODIUM 141 mmol/L (135-144)
[2017-06-28] MEDS: FAMOTIDINE 20 MG INJ IV ×2 (08:16→21:49)
[2017-06-28] MEDS: DOCUSATE SODIUM 100 MG CAP PO ×2 (08:18→20:15)
[2017-06-28] MEDS: BUSPIRONE 10 MG TAB PO ×2 (08:18→21:48)
[2017-06-28] MEDS: SERTRALINE 100 MG TAB PO (08:19)
[2017-06-28] MEDS: SENNA TAB PO ×2 (08:19→20:17)
[2017-06-28] MEDS: POLYETHYLENE GLYCOL 17 GM PACKET PO ×2 (08:19→20:14)
[2017-06-28] MEDS: GABAPENTIN 300 MG CAP PO ×3 (08:19→20:17)
[2017-06-28] MEDS: MULTIVITAMINS THERAPEUTIC TAB PO (08:19)
[2017-06-28] MEDS: OSELTAMIVIR 75 MG CAP PO ×2 (08:20→21:48)
[2017-06-28] MEDS: ENOXAPARIN 30 MG/0.3 ML SYG SC (08:30)
[2017-06-28] MEDS: POTASSIUM CHLORIDE 30 MEQ in SOD CHLORIDE 0.9% 1,000 ML IV (13:01)
[2017-06-28] MEDS: ZOLPIDEM 5 MG TAB PO (23:18)
[2017-06-29] MEDS: DIPHENHYDRAMINE 50 MG INJ IV ×6 (00:24→20:18)
[2017-06-29] MEDS: HYDROmorphONE 2 MG/ML SYG IV ×6 (00:24→20:18)
[2017-06-29 05:29] LABS: ANION GAP 14 (8-16); BLOOD UREA NITROGEN 9 mg/dl (7-20); CALCIUM 9.2 mg/dl (8.4-10.2); CARBON DIOXIDE 28 mmol/L (21-31); CHLORIDE 104 mmol/L (97-110); CREATININE 0.74 mg/dl (0.44-1.00); GLUCOSE 88 mg/dl (70-220); POTASSIUM 4.2 mmol/L (3.5-5.1); SODIUM 142 mmol/L (135-144)
[2017-06-29 05:34] LABS: ADD MAN DIFF? NO
[2017-06-29 05:38] LABS: WHITE BLOOD COUNT 13.2 10^3/ul (4.8-10.8)
[2017-06-29 05:38] LABS: BASOPHILS % 0.3 % (0.0-2.0); EOSINOPHILS # 1.3 10^3/ul (0.0-0.5); EOSINOPHILS % 10.2 % (0.0-7.0); HEMATOCRIT 26.3 % (37.0-47.0); HEMOGLOBIN 9.2 g/dl (12.0-16.0); LYMPHOCYTES # 3.4 10^3/ul (0.8-2.9); LYMPHOCYTES % 25.5 % (15.0-51.0); MEAN CORPUSCULAR VOLUME 77.1 fl (82.0-101.0); MEAN PLATELET VOLUME 9.4 fl (7.4-10.4); MONOCYTE # 0.9 10^3/ul (0.3-0.9); MONOCYTES % 6.4 % (0.0-11.0); NEUTROPHIL # 7.5 10^3/ul (1.6-7.5); NEUTROPHILS % 57.1 % (39.0-77.0); PLATELET COUNT 397 10^3/UL (140-415); RED BLOOD COUNT 3.41 10^6/ul (4.20-5.40); RED CELL DISTRIBUTION WIDTH 20.2 % (11.5-14.5)
[2017-06-29] MEDS: morphine (ER) 15 MG TAB PO ×3 (06:00→22:03)
[2017-06-29] MEDS: FAMOTIDINE 20 MG INJ IV ×2 (08:27→20:29)
[2017-06-29] MEDS: ENOXAPARIN 30 MG/0.3 ML SYG SC (08:32)
[2017-06-29] MEDS: POLYETHYLENE GLYCOL 17 GM PACKET PO ×2 (08:32→20:19)
[2017-06-29] MEDS: DOCUSATE SODIUM 100 MG CAP PO ×2 (08:32→20:19)
[2017-06-29] MEDS: MULTIVITAMINS THERAPEUTIC TAB PO (08:33)
[2017-06-29] MEDS: SENNA TAB PO ×2 (08:33→20:20)
[2017-06-29] MEDS: SERTRALINE 100 MG TAB PO (08:33)
[2017-06-29] MEDS: GABAPENTIN 300 MG CAP PO ×3 (08:33→20:18)
[2017-06-29] MEDS: BUSPIRONE 10 MG TAB PO ×3 (08:33→20:29)
[2017-06-29] MEDS: POTASSIUM CHLORIDE 30 MEQ in SOD CHLORIDE 0.9% 1,000 ML IV (10:10)
[2017-06-29] MEDS: ZOLPIDEM 5 MG TAB PO (23:11)
[2017-06-30] MEDS: DIPHENHYDRAMINE 50 MG INJ IV ×6 (00:12→20:30)
[2017-06-30] MEDS: HYDROmorphONE 2 MG/ML SYG IV ×6 (00:13→20:30)
[2017-06-30] MEDS: POTASSIUM CHLORIDE 30 MEQ in SOD CHLORIDE 0.9% 1,000 ML IV (04:12)
[2017-06-30] MEDS: morphine (ER) 15 MG TAB PO ×3 (06:12→21:54)
[2017-06-30] MEDS: FAMOTIDINE 20 MG INJ IV ×2 (08:21→20:30)
[2017-06-30] MEDS: DOCUSATE SODIUM 100 MG CAP PO ×2 (08:22→20:30)
[2017-06-30] MEDS: POLYETHYLENE GLYCOL 17 GM PACKET PO ×2 (08:23→20:33)
[2017-06-30] MEDS: ENOXAPARIN 30 MG/0.3 ML SYG SC (08:23)
[2017-06-30] MEDS: GABAPENTIN 300 MG CAP PO ×3 (08:23→20:29)
[2017-06-30] MEDS: SENNA TAB PO ×2 (08:24→20:43)
[2017-06-30] MEDS: MULTIVITAMINS THERAPEUTIC TAB PO (08:24)
[2017-06-30] MEDS: SERTRALINE 100 MG TAB PO (08:25)
[2017-06-30] MEDS: BUSPIRONE 10 MG TAB PO ×2 (10:46→20:30)
[2017-06-30] MEDS: HEPARIN (100 UNITS/ML) 5 ML SYG CATHETER (21:57)
== END 2017-06-30 22:36 | disposition home or self-care (01) | DRG 871 ==
LOC: MS2 20:21 → MS1 06-18 14:05 → TEL 06-15 13:30 → E/R 17:26
PROC: 30233N1 Transfusion of Nonautologous Red Blood Cells into Peripheral Vein, Percutaneous Approach (ICD-10-PCS; principal; 2017-06-15)
DX: A41.9 Sepsis, unspecified organism (principal); D57.00 Hb-SS disease with crisis, unspecified; J18.9 Pneumonia, unspecified organism; N10 Acute pyelonephritis; N39.0 Urinary tract infection, site not specified; E66.9 Obesity, unspecified; Z68.37 Body mass index [BMI] 37.0-37.9, adult; F41.8 Other specified anxiety disorders; E87.6 Hypokalemia; B95.1 Streptococcus, group B, as the cause of diseases classified elsewhere; J40 Bronchitis, not specified as acute or chronic; J32.0 Chronic maxillary sinusitis
CPT/HCPCS: 36415; 36430; 71045; 76775; 80048; 80053; 81001; 81003; 82150; 83605; 83690; 84145; 84484; 84703; 85025; 85045; 85660; 86308; 86850; 86870; 86900; 86901; 86920; 87040; 87086; 87275; 87276; 87279; 87280; 87400; 93005; 96374; 96375; 96376; 97161; 99285-25

== ENCOUNTER 2017-10-16 14:49 | Inpatient (IN) | payer MEDICARE, OTHER ==
[2017-10-16 16:10] LABS: ADD MAN DIFF? NO
[2017-10-16] MEDS: HYDROmorphONE 1 MG/ML SYG IV ×2 (16:12→18:42)
[2017-10-16] MEDS: SOD CHLORIDE 0.9% 1,000 ML IV ×3 (16:12→23:02)
[2017-10-16] MEDS: DIPHENHYDRAMINE 50 MG INJ IV ×2 (16:12→18:43)
[2017-10-16 16:14] LABS: WHITE BLOOD COUNT 15.7 10^3/ul (4.8-10.8)
[2017-10-16 16:14] LABS: BASOPHILS % 0.3 % (0.0-2.0); EOSINOPHILS # 0.1 10^3/ul (0.0-0.5); EOSINOPHILS % 0.5 % (0.0-7.0); HEMATOCRIT 30.7 % (37.0-47.0); HEMOGLOBIN 10.8 g/dl (12.0-16.0); LYMPHOCYTES # 1.3 10^3/ul (0.8-2.9); LYMPHOCYTES % 8.2 % (15.0-51.0); MEAN CORPUSCULAR HEMOGLOBIN 25.8 pg (29.0-33.0); MEAN CORPUSCULAR HGB CONC 35.2 g/dl (32.0-37.0); MEAN CORPUSCULAR VOLUME 73.4 fl (82.0-101.0); MEAN PLATELET VOLUME 9.5 fl (7.4-10.4); MONOCYTE # 0.7 10^3/ul (0.3-0.9); MONOCYTES % 4.5 % (0.0-11.0); NEUTROPHIL # 13.5 10^3/ul (1.6-7.5); NEUTROPHILS % 86.1 % (39.0-77.0); PLATELET COUNT 317 10^3/UL (140-415); RED BLOOD COUNT 4.18 10^6/ul (4.20-5.40); RED CELL DISTRIBUTION WIDTH 20.8 % (11.5-14.5); RETICULOCYTE COUNT # 0.081 X10^6 (0.020-0.110); RETICULOCYTE COUNT % 1.9 % (0.5-1.5); RETICULOCYTE RBC 4.18
[2017-10-16 16:32] LABS: ANION GAP 16 (8-16); BLOOD UREA NITROGEN 8 mg/dl (7-20); CALCIUM 8.9 mg/dl (8.4-10.2); CARBON DIOXIDE 23 mmol/L (21-31); CHLORIDE 106 mmol/L (97-110); CREATININE 0.64 mg/dl (0.44-1.00); GLUCOSE 103 mg/dl (70-220); POTASSIUM 3.8 mmol/L (3.5-5.1); SODIUM 141 mmol/L (135-144)
[2017-10-16 16:44] LABS: TROPONIN-I < 0.010 ng/ml (0.000-0.120)
[2017-10-16] MEDS: HYDROmorphONE 2 MG/ML SYG IV (17:04)
[2017-10-16] MEDS ORDERED: ACETAMINOPHEN 325 MG TAB PO (18:30)
[2017-10-16] MEDS ORDERED: ONDANSETRON 4 MG INJ IV (18:30)
[2017-10-16] MEDS: ONDANSETRON 4 MG INJ IV (18:34)
[2017-10-16] MEDS ORDERED: METOCLOPRAMIDE 10 MG INJ IV (20:30)
[2017-10-16] MEDS: HYDROmorphONE 2 MG TAB PO (22:56)
[2017-10-17] MEDS: DIPHENHYDRAMINE 50 MG INJ IV ×6 (00:08→20:29)
[2017-10-17] MEDS: HYDROmorphONE 2 MG TAB PO (03:15)
[2017-10-17] MEDS: SOD CHLORIDE 0.9% 1,000 ML IV ×3 (04:30→18:10)
[2017-10-17 05:28] LABS: ADD MAN DIFF? NO
[2017-10-17 05:32] LABS: BASOPHILS % 0.2 % (0.0-2.0); EOSINOPHILS # 0.5 10^3/ul (0.0-0.5); HEMATOCRIT 28.3 % (37.0-47.0); LYMPHOCYTES # 2.7 10^3/ul (0.8-2.9); LYMPHOCYTES % 28.1 % (15.0-51.0); MEAN CORPUSCULAR HEMOGLOBIN 26.1 pg (29.0-33.0); MEAN CORPUSCULAR HGB CONC 35.3 g/dl (32.0-37.0); MEAN CORPUSCULAR VOLUME 73.9 fl (82.0-101.0); MEAN PLATELET VOLUME 9.3 fl (7.4-10.4); MONOCYTE # 0.7 10^3/ul (0.3-0.9); MONOCYTES % 6.9 % (0.0-11.0); NEUTROPHIL # 5.8 10^3/ul (1.6-7.5); NEUTROPHILS % 59.5 % (39.0-77.0); PLATELET COUNT 239 10^3/UL (140-415); RED BLOOD COUNT 3.83 10^6/ul (4.20-5.40); RED CELL DISTRIBUTION WIDTH 20.4 % (11.5-14.5)
[2017-10-17 05:32] LABS: WHITE BLOOD COUNT 9.7 10^3/ul (4.8-10.8)
[2017-10-17 06:09] LABS: ANION GAP 9 (8-16); BLOOD UREA NITROGEN 6 mg/dl (7-20); CALCIUM 8.4 mg/dl (8.4-10.2); CARBON DIOXIDE 26 mmol/L (21-31); CHLORIDE 110 mmol/L (97-110); CREATININE 0.65 mg/dl (0.44-1.00); GLUCOSE 78 mg/dl (70-220); MAGNESIUM 1.9 mg/dl (1.7-2.5); PHOSPHORUS 4.5 mg/dl (2.5-4.9); POTASSIUM 3.3 mmol/L (3.5-5.1); SODIUM 142 mmol/L (135-144)
[2017-10-17] MEDS: HYDROmorphONE 1 MG/ML SYG IV ×2 (07:43→11:45)
[2017-10-17] MEDS: LEVOFLOXACIN 500MG/D5W (PMX) 100 ML IVPB (07:51)
[2017-10-17] MEDS ORDERED: ZOLPIDEM 5 MG TAB PO (08:30)
[2017-10-17] MEDS ORDERED: DIPHENHYDRAMINE 50 MG CAP PO (08:30)
[2017-10-17] MEDS: ALPRAZOLAM 0.5 MG TAB PO ×2 (09:15→17:32)
[2017-10-17] MEDS: GABAPENTIN 300 MG CAP PO ×3 (09:16→20:30)
[2017-10-17] MEDS: SERTRALINE 100 MG TAB PO (09:16)
[2017-10-17] MEDS: MULTIVITAMINS THERAPEUTIC TAB PO (09:16)
[2017-10-17] MEDS: morphine (ER) 15 MG TAB PO ×3 (09:16→22:00)
[2017-10-17] MEDS: FLUTICASONE/VILANTEROL 100-25 INH (10:09)
[2017-10-17] MEDS: POTASSIUM CHLORIDE (SR) 20 MEQ TAB PO (11:44)
[2017-10-17] MEDS: HYDROmorphONE 4 MG TAB PO ×3 (15:40→23:47)
[2017-10-17] MEDS: KETOROLAC 15 MG INJ IV (17:32)
[2017-10-18] MEDS: DIPHENHYDRAMINE 50 MG INJ IV ×2 (00:58→06:54)
[2017-10-18] MEDS: HYDROmorphONE 1 MG/ML SYG IV ×2 (00:59→06:55)
[2017-10-18] MEDS: SOD CHLORIDE 0.9% 1,000 ML IV (03:14)
[2017-10-18] MEDS: HYDROmorphONE 4 MG TAB PO ×2 (04:53→09:07)
[2017-10-18 06:02] LABS: ADD MAN DIFF? NO
[2017-10-18] MEDS: morphine (ER) 15 MG TAB PO ×2 (06:05→14:38)
[2017-10-18 06:12] LABS: BASOPHIL # 0.1 10^3/ul (0.0-0.1); BASOPHILS % 0.6 % (0.0-2.0); EOSINOPHILS # 0.6 10^3/ul (0.0-0.5); EOSINOPHILS % 7.1 % (0.0-7.0); HEMATOCRIT 27.2 % (37.0-47.0); HEMOGLOBIN 9.7 g/dl (12.0-16.0); LYMPHOCYTES % 33.1 % (15.0-51.0); MEAN CORPUSCULAR HEMOGLOBIN 26.8 pg (29.0-33.0); MEAN CORPUSCULAR HGB CONC 35.7 g/dl (32.0-37.0); MEAN CORPUSCULAR VOLUME 75.1 fl (82.0-101.0); MEAN PLATELET VOLUME 9.4 fl (7.4-10.4); MONOCYTE # 0.6 10^3/ul (0.3-0.9); MONOCYTES % 6.2 % (0.0-11.0); NEUTROPHIL # 4.8 10^3/ul (1.6-7.5); NEUTROPHILS % 52.7 % (39.0-77.0); PLATELET COUNT 211 10^3/UL (140-415); RED BLOOD COUNT 3.62 10^6/ul (4.20-5.40); RED CELL DISTRIBUTION WIDTH 20.4 % (11.5-14.5)
[2017-10-18] MEDS: LEVOFLOXACIN 500MG/D5W (PMX) 100 ML IVPB (06:50)
[2017-10-18 06:58] LABS: ALANINE AMINOTRANSFERASE 18 IU/L (13-69); ALBUMIN 3.6 g/dl (3.3-4.9); ALBUMIN/GLOBULIN RATIO 1.24; ALKALINE PHOSPHATASE 73 IU/L (42-121); ANION GAP 8 (8-16); ASPARTATE AMINO TRANSFERASE 17 IU/L (15-46); BILIRUBIN,INDIRECT 0.7 mg/dl (0-1.1); BILIRUBIN,TOTAL 0.7 mg/dl (0.2-1.3); BLOOD UREA NITROGEN 10 mg/dl (7-20); CALCIUM 8.6 mg/dl (8.4-10.2); CARBON DIOXIDE 27 mmol/L (21-31); CHLORIDE 109 mmol/L (97-110); CREATININE 0.76 mg/dl (0.44-1.00); GLUCOSE 82 mg/dl (70-220); POTASSIUM 4.1 mmol/L (3.5-5.1); SODIUM 140 mmol/L (135-144); TOTAL PROTEIN 6.5 g/dl (6.1-8.1)
[2017-10-18] MEDS: MULTIVITAMINS THERAPEUTIC TAB PO (09:07)
[2017-10-18] MEDS: SERTRALINE 100 MG TAB PO (09:07)
[2017-10-18] MEDS: GABAPENTIN 300 MG CAP PO ×3 (09:07→20:33)
[2017-10-18] MEDS: FLUTICASONE/VILANTEROL 100-25 INH (09:07)
[2017-10-18] MEDS ORDERED: HYDROmorphONE 0.2 MG/ML PCA IV (11:30)
[2017-10-18] MEDS ORDERED: NALOXONE (0.4 MG/ML) INJ IV (11:30)
[2017-10-18] MEDS ORDERED: KETOROLAC 30 MG INJ IV (11:30)
[2017-10-18] MEDS: DIPHENHYDRAMINE 25 MG CAP PO (13:48)
[2017-10-18] MEDS: SOD CHLORIDE 0.45% 1,000 ML IV ×2 (13:48→16:16)
[2017-10-18] MEDS: HYDROmorphONE 0.2 MG/ML PCA IV ×2 (14:39→20:47)
[2017-10-18] MEDS ORDERED: ACETAMINOPHEN 325 MG TAB PO (18:30)
[2017-10-18] MEDS: DIPHENHYDRAMINE 50 MG CAP PO (19:29)
[2017-10-18] MEDS: SENNA/DOCUSATE NA (8.6MG/50MG) TAB PO (20:33)
[2017-10-19] MEDS: morphine (ER) 15 MG TAB PO ×4 (00:19→21:59)
[2017-10-19] MEDS: DIPHENHYDRAMINE 50 MG CAP PO ×2 (01:30→07:49)
[2017-10-19] MEDS: SOD CHLORIDE 0.45% 1,000 ML IV ×2 (02:16→15:15)
[2017-10-19] MEDS: LEVOFLOXACIN 750 MG TABLET PO (05:59)
[2017-10-19] MEDS ORDERED: LEVOFLOXACIN 750 MG TABLET PO (06:00)
[2017-10-19] MEDS: HYDROmorphONE 0.2 MG/ML PCA IV ×3 (06:05→19:34)
[2017-10-19] MEDS: FOLIC ACID 1 MG TAB PO (09:18)
[2017-10-19] MEDS: MULTIVITAMINS THERAPEUTIC TAB PO (09:18)
[2017-10-19] MEDS: GABAPENTIN 300 MG CAP PO ×3 (09:18→20:37)
[2017-10-19] MEDS: FLUTICASONE/VILANTEROL 100-25 INH (09:18)
[2017-10-19] MEDS: SERTRALINE 100 MG TAB PO (09:18)
[2017-10-19] MEDS: SENNA/DOCUSATE NA (8.6MG/50MG) TAB PO ×2 (09:18→20:38)
[2017-10-19 09:30] LABS: ADD MAN DIFF? NO
[2017-10-19 09:40] LABS: BASOPHIL # 0.1 10^3/ul (0.0-0.1); BASOPHILS % 0.3 % (0.0-2.0); EOSINOPHILS % 6.3 % (0.0-7.0); HEMATOCRIT 25.6 % (37.0-47.0); HEMOGLOBIN 8.9 g/dl (12.0-16.0); LYMPHOCYTES # 4.1 10^3/ul (0.8-2.9); LYMPHOCYTES % 25.7 % (15.0-51.0); MEAN CORPUSCULAR HGB CONC 34.8 g/dl (32.0-37.0); MEAN CORPUSCULAR VOLUME 74.9 fl (82.0-101.0); MONOCYTE # 0.9 10^3/ul (0.3-0.9); MONOCYTES % 5.3 % (0.0-11.0); NEUTROPHIL # 9.9 10^3/ul (1.6-7.5); NUCLEATED RED BLOOD CELLS% 0.2 /100WBC (0.0-0.0); PLATELET COUNT 171 10^3/UL (140-415); RED BLOOD COUNT 3.42 10^6/ul (4.20-5.40); RED CELL DISTRIBUTION WIDTH 20.6 % (11.5-14.5); RETICULOCYTE COUNT # 0.079 X10^6 (0.020-0.110); RETICULOCYTE COUNT % 2.3 % (0.5-1.5); RETICULOCYTE RBC 3.42
[2017-10-19 10:16] LABS: ALANINE AMINOTRANSFERASE 13 IU/L (13-69); ALBUMIN 3.7 g/dl (3.3-4.9); ALBUMIN/GLOBULIN RATIO 1.23; ALKALINE PHOSPHATASE 75 IU/L (42-121); ANION GAP 11 (8-16); ASPARTATE AMINO TRANSFERASE 20 IU/L (15-46); BILIRUBIN,INDIRECT 0.7 mg/dl (0-1.1); BILIRUBIN,TOTAL 0.7 mg/dl (0.2-1.3); BLOOD UREA NITROGEN 9 mg/dl (7-20); CALCIUM 8.5 mg/dl (8.4-10.2); CARBON DIOXIDE 27 mmol/L (21-31); CHLORIDE 102 mmol/L (97-110); CREATININE 0.78 mg/dl (0.44-1.00); GLUCOSE 85 mg/dl (70-220); MAGNESIUM 1.9 mg/dl (1.7-2.5); PHOSPHORUS 4.3 mg/dl (2.5-4.9); POTASSIUM 3.8 mmol/L (3.5-5.1); SODIUM 136 mmol/L (135-144); TOTAL PROTEIN 6.7 g/dl (6.1-8.1)
[2017-10-19] MEDS: DIPHENHYDRAMINE 50 MG INJ IV ×2 (13:51→19:45)
[2017-10-19] MEDS: NAPROXEN 500 MG TAB PO (20:37)
[2017-10-20] MEDS: SOD CHLORIDE 0.45% 1,000 ML IV ×3 (00:50→17:44)
[2017-10-20] MEDS: HYDROmorphONE 0.2 MG/ML PCA IV ×5 (01:14→23:42)
[2017-10-20] MEDS: DIPHENHYDRAMINE 50 MG INJ IV ×4 (01:51→19:56)
[2017-10-20] MEDS: morphine (ER) 15 MG TAB PO ×3 (05:45→22:37)
[2017-10-20] MEDS: LEVOFLOXACIN 750 MG TABLET PO (05:45)
[2017-10-20 05:50] LABS: ADD MAN DIFF? NO
[2017-10-20 05:58] LABS: BASOPHIL # 0.1 10^3/ul (0.0-0.1); BASOPHILS % 0.3 % (0.0-2.0); EOSINOPHILS # 1.3 10^3/ul (0.0-0.5); EOSINOPHILS % 7.1 % (0.0-7.0); HEMATOCRIT 23.4 % (37.0-47.0); LYMPHOCYTES # 4.5 10^3/ul (0.8-2.9); LYMPHOCYTES % 24.4 % (15.0-51.0); MEAN CORPUSCULAR HEMOGLOBIN 25.2 pg (29.0-33.0); MEAN CORPUSCULAR HGB CONC 34.2 g/dl (32.0-37.0); MEAN CORPUSCULAR VOLUME 73.8 fl (82.0-101.0); MEAN PLATELET VOLUME 9.1 fl (7.4-10.4); MONOCYTE # 1.1 10^3/ul (0.3-0.9); MONOCYTES % 6.1 % (0.0-11.0); NEUTROPHIL # 11.3 10^3/ul (1.6-7.5); NEUTROPHILS % 61.7 % (39.0-77.0); NUCLEATED RED BLOOD CELLS # 0.1 10^3/ul (0.0-0.0); NUCLEATED RED BLOOD CELLS% 0.7 /100WBC (0.0-0.0); PLATELET COUNT 157 10^3/UL (140-415); RED BLOOD COUNT 3.17 10^6/ul (4.20-5.40); RED CELL DISTRIBUTION WIDTH 21.1 % (11.5-14.5); RETICULOCYTE COUNT # 0.098 X10^6 (0.020-0.110); RETICULOCYTE COUNT % 3.1 % (0.5-1.5); RETICULOCYTE RBC 3.17
[2017-10-20 05:58] LABS: WHITE BLOOD COUNT 18.4 10^3/ul (4.8-10.8)
[2017-10-20 06:25] LABS: ALANINE AMINOTRANSFERASE 27 IU/L (13-69); ALBUMIN 3.6 g/dl (3.3-4.9); ALBUMIN/GLOBULIN RATIO 1.24; ALKALINE PHOSPHATASE 84 IU/L (42-121); ANION GAP 10 (8-16); ASPARTATE AMINO TRANSFERASE 42 IU/L (15-46); BLOOD UREA NITROGEN 8 mg/dl (7-20); CALCIUM 8.4 mg/dl (8.4-10.2); CARBON DIOXIDE 28 mmol/L (21-31); CHLORIDE 105 mmol/L (97-110); CREATININE 0.78 mg/dl (0.44-1.00); GLUCOSE 95 mg/dl (70-220); POTASSIUM 3.6 mmol/L (3.5-5.1); SODIUM 139 mmol/L (135-144); TOTAL PROTEIN 6.5 g/dl (6.1-8.1)
[2017-10-20] MEDS: SENNA/DOCUSATE NA (8.6MG/50MG) TAB PO ×2 (08:30→19:59)
[2017-10-20] MEDS: GABAPENTIN 300 MG CAP PO ×3 (08:30→19:59)
[2017-10-20] MEDS: NAPROXEN 500 MG TAB PO ×2 (08:30→19:59)
[2017-10-20] MEDS: MULTIVITAMINS THERAPEUTIC TAB PO (08:30)
[2017-10-20] MEDS: FOLIC ACID 1 MG TAB PO (08:31)
[2017-10-20] MEDS: FLUTICASONE/VILANTEROL 100-25 INH (08:31)
[2017-10-20] MEDS: SERTRALINE 100 MG TAB PO (08:31)
[2017-10-20 18:58] LABS: ADD UMIC YES; UR ASCORBIC ACID NEGATIVE (NEGATIVE); UR BILIRUBIN (Dip) NEGATIVE (NEGATIVE); UR BLOOD (Dip) 1+ mg/dL (NEGATIVE); UR CLARITY CLEAR (CLEAR); UR COLOR YELLOW (YELLOW); UR GLUCOSE (Dip) NEGATIVE (NEGATIVE); UR KETONES (Dip) NEGATIVE (NEGATIVE); UR LEUKOCYTE ESTERASE (Dip) NEGATIVE Leu/ul (NEGATIVE); UR NITRITE (Dip) NEGATIVE (NEGATIVE); UR RBC 1 /HPF (0-5); UR SPECIFIC GRAVITY (Dip) 1.006 (1.003-1.030); UR TOTAL PROTEIN (Dip) NEGATIVE (NEGATIVE); UR UROBILINOGEN (Dip) NEGATIVE (NEGATIVE); UR WBC 0 /HPF (0-5)
[2017-10-21] MEDS: DIPHENHYDRAMINE 50 MG INJ IV ×6 (02:00→20:00)
[2017-10-21] MEDS: SOD CHLORIDE 0.45% 1,000 ML IV ×2 (03:54→14:15)
[2017-10-21] MEDS: HYDROmorphONE 0.2 MG/ML PCA IV ×5 (04:58→23:27)
[2017-10-21 05:31] LABS: ADD MAN DIFF? NO
[2017-10-21 05:36] LABS: WHITE BLOOD COUNT 17.9 10^3/ul (4.8-10.8)
[2017-10-21 05:36] LABS: ABNORMAL IP MESSAGE 1; BASOPHIL # 0.1 10^3/ul (0.0-0.1); BASOPHILS % 0.6 % (0.0-2.0); EOSINOPHILS # 1.5 10^3/ul (0.0-0.5); EOSINOPHILS % 8.5 % (0.0-7.0); HEMATOCRIT 21.8 % (37.0-47.0); HEMOGLOBIN 7.5 g/dl (12.0-16.0); LYMPHOCYTES # 4.2 10^3/ul (0.8-2.9); LYMPHOCYTES % 23.7 % (15.0-51.0); MEAN CORPUSCULAR HEMOGLOBIN 25.3 pg (29.0-33.0); MEAN CORPUSCULAR HGB CONC 34.4 g/dl (32.0-37.0); MEAN CORPUSCULAR VOLUME 73.6 fl (82.0-101.0); MEAN PLATELET VOLUME 9.9 fl (7.4-10.4); MONOCYTES % 5.8 % (0.0-11.0); NEUTROPHIL # 10.8 10^3/ul (1.6-7.5); NEUTROPHILS % 60.6 % (39.0-77.0); NUCLEATED RED BLOOD CELLS # 0.4 10^3/ul (0.0-0.0); NUCLEATED RED BLOOD CELLS% 2.2 /100WBC (0.0-0.0); PLATELET COUNT 203 10^3/UL (140-415); RED BLOOD COUNT 2.96 10^6/ul (4.20-5.40); RED CELL DISTRIBUTION WIDTH 21.7 % (11.5-14.5); RETICULOCYTE COUNT # 0.089 X10^6 (0.020-0.110); RETICULOCYTE RBC 2.96
[2017-10-21 05:39] LABS: POSITIVE DIFF @See below
[2017-10-21 05:59] LABS: ALANINE AMINOTRANSFERASE 52 IU/L (13-69); ALBUMIN 3.6 g/dl (3.3-4.9); ALBUMIN/GLOBULIN RATIO 1.28; ALKALINE PHOSPHATASE 83 IU/L (42-121); ANION GAP 10 (8-16); ASPARTATE AMINO TRANSFERASE 60 IU/L (15-46); BILIRUBIN,INDIRECT 1.1 mg/dl (0-1.1); BILIRUBIN,TOTAL 1.1 mg/dl (0.2-1.3); BLOOD UREA NITROGEN 10 mg/dl (7-20); CALCIUM 8.2 mg/dl (8.4-10.2); CARBON DIOXIDE 26 mmol/L (21-31); CHLORIDE 107 mmol/L (97-110); CREATININE 0.74 mg/dl (0.44-1.00); GLUCOSE 88 mg/dl (70-220); MAGNESIUM 1.9 mg/dl (1.7-2.5); PHOSPHORUS 4.4 mg/dl (2.5-4.9); POTASSIUM 3.9 mmol/L (3.5-5.1); SODIUM 139 mmol/L (135-144); TOTAL PROTEIN 6.4 g/dl (6.1-8.1)
[2017-10-21] MEDS: LEVOFLOXACIN 750 MG TABLET PO (06:08)
[2017-10-21] MEDS: morphine (ER) 15 MG TAB PO ×3 (06:09→22:03)
[2017-10-21] MEDS: SERTRALINE 100 MG TAB PO (08:16)
[2017-10-21] MEDS: FOLIC ACID 1 MG TAB PO (08:16)
[2017-10-21] MEDS: SENNA/DOCUSATE NA (8.6MG/50MG) TAB PO ×2 (08:16→20:05)
[2017-10-21] MEDS: GABAPENTIN 300 MG CAP PO ×3 (08:16→20:05)
[2017-10-21] MEDS: MULTIVITAMINS THERAPEUTIC TAB PO (08:16)
[2017-10-21] MEDS: NAPROXEN 500 MG TAB PO ×2 (08:16→20:05)
[2017-10-21] MEDS: FLUTICASONE/VILANTEROL 100-25 INH (08:17)
[2017-10-21 13:14] LABS: RETICULOCYTE COUNT # 0.137 X10^6 (0.020-0.110); RETICULOCYTE COUNT % 5.2 % (0.5-1.5)
[2017-10-21 13:14] LABS: RETICULOCYTE RBC 2.64
[2017-10-22] MEDS: DIPHENHYDRAMINE 50 MG INJ IV ×2 (02:00→08:05)
[2017-10-22] MEDS: SOD CHLORIDE 0.45% 1,000 ML IV ×3 (03:46→21:47)
[2017-10-22] MEDS: HYDROmorphONE 0.2 MG/ML PCA IV ×4 (04:13→19:51)
[2017-10-22 05:49] LABS: ADD MAN DIFF? NO
[2017-10-22 05:54] LABS: ABNORMAL IP MESSAGE 1; BASOPHIL # 0.1 10^3/ul (0.0-0.1); BASOPHILS % 0.5 % (0.0-2.0); EOSINOPHILS # 1.6 10^3/ul (0.0-0.5); EOSINOPHILS % 9.6 % (0.0-7.0); HEMATOCRIT 23.4 % (37.0-47.0); HEMOGLOBIN 8.1 g/dl (12.0-16.0); LYMPHOCYTES # 3.8 10^3/ul (0.8-2.9); LYMPHOCYTES % 22.8 % (15.0-51.0); MEAN CORPUSCULAR HEMOGLOBIN 26.1 pg (29.0-33.0); MEAN CORPUSCULAR HGB CONC 34.6 g/dl (32.0-37.0); MEAN CORPUSCULAR VOLUME 75.5 fl (82.0-101.0); MEAN PLATELET VOLUME 9.7 fl (7.4-10.4); MONOCYTE # 1.1 10^3/ul (0.3-0.9); MONOCYTES % 6.6 % (0.0-11.0); NEUTROPHIL # 9.9 10^3/ul (1.6-7.5); NEUTROPHILS % 59.1 % (39.0-77.0); NUCLEATED RED BLOOD CELLS # 1.3 10^3/ul (0.0-0.0); NUCLEATED RED BLOOD CELLS% 7.7 /100WBC (0.0-0.0); PLATELET COUNT 226 10^3/UL (140-415); RED CELL DISTRIBUTION WIDTH 22.4 % (11.5-14.5)
[2017-10-22 05:54] LABS: WHITE BLOOD COUNT 16.7 10^3/ul (4.8-10.8)
[2017-10-22 06:03] LABS: POSITIVE DIFF @See below
[2017-10-22] MEDS: morphine (ER) 15 MG TAB PO ×3 (06:05→21:47)
[2017-10-22 06:22] LABS: ALANINE AMINOTRANSFERASE 55 IU/L (13-69); ALBUMIN 3.4 g/dl (3.3-4.9); ALBUMIN/GLOBULIN RATIO 1.21; ALKALINE PHOSPHATASE 89 IU/L (42-121); ANION GAP 9 (8-16); ASPARTATE AMINO TRANSFERASE 55 IU/L (15-46); BILIRUBIN,INDIRECT 1.1 mg/dl (0-1.1); BILIRUBIN,TOTAL 1.1 mg/dl (0.2-1.3); BLOOD UREA NITROGEN 8 mg/dl (7-20); CALCIUM 8.3 mg/dl (8.4-10.2); CARBON DIOXIDE 29 mmol/L (21-31); CHLORIDE 106 mmol/L (97-110); CREATININE 0.68 mg/dl (0.44-1.00); GLUCOSE 92 mg/dl (70-220); POTASSIUM 3.8 mmol/L (3.5-5.1); SODIUM 140 mmol/L (135-144); TOTAL PROTEIN 6.2 g/dl (6.1-8.1)
[2017-10-22] MEDS: MULTIVITAMINS THERAPEUTIC TAB PO (08:51)
[2017-10-22] MEDS: GABAPENTIN 300 MG CAP PO ×3 (08:51→19:59)
[2017-10-22] MEDS: SENNA/DOCUSATE NA (8.6MG/50MG) TAB PO ×2 (08:51→21:47)
[2017-10-22] MEDS: FLUTICASONE/VILANTEROL 100-25 INH (08:51)
[2017-10-22] MEDS: NAPROXEN 500 MG TAB PO ×2 (08:51→20:00)
[2017-10-22] MEDS: FOLIC ACID 1 MG TAB PO (08:51)
[2017-10-22] MEDS: SERTRALINE 100 MG TAB PO (08:52)
[2017-10-22] MEDS ORDERED: HYDROmorphONE 4 MG TAB PO (15:30)
[2017-10-22 16:02] LABS: SICKLE CELL SCREEN POSITIVE (NEGATIVE)
[2017-10-22] MEDS ORDERED: DIPHENHYDRAMINE 50 MG INJ IV (18:00)
[2017-10-22] MEDS: DIPHENHYDRAMINE 50 MG CAP PO (19:57)
[2017-10-22] MEDS: HYDROXYUREA 500 MG CAP PO (19:59)
[2017-10-23] MEDS: HYDROmorphONE 0.2 MG/ML PCA IV ×4 (05:09→19:56)
[2017-10-23 05:31] LABS: ADD MAN DIFF? NO
[2017-10-23 05:46] LABS: ABNORMAL IP MESSAGE 1; BASOPHIL # 0.1 10^3/ul (0.0-0.1); BASOPHILS % 0.6 % (0.0-2.0); EOSINOPHILS # 1.7 10^3/ul (0.0-0.5); EOSINOPHILS % 9.7 % (0.0-7.0); HEMATOCRIT 22.8 % (37.0-47.0); HEMOGLOBIN 7.8 g/dl (12.0-16.0); LYMPHOCYTES # 4.8 10^3/ul (0.8-2.9); LYMPHOCYTES % 26.8 % (15.0-51.0); MEAN CORPUSCULAR HEMOGLOBIN 26.2 pg (29.0-33.0); MEAN CORPUSCULAR HGB CONC 34.2 g/dl (32.0-37.0); MEAN CORPUSCULAR VOLUME 76.5 fl (82.0-101.0); MEAN PLATELET VOLUME 9.7 fl (7.4-10.4); MONOCYTE # 1.2 10^3/ul (0.3-0.9); MONOCYTES % 6.6 % (0.0-11.0); NEUTROPHIL # 9.8 10^3/ul (1.6-7.5); NEUTROPHILS % 55.5 % (39.0-77.0); NUCLEATED RED BLOOD CELLS # 2.4 10^3/ul (0.0-0.0); NUCLEATED RED BLOOD CELLS% 13.6 /100WBC (0.0-0.0); PLATELET COUNT 266 10^3/UL (140-415); RED BLOOD COUNT 2.98 10^6/ul (4.20-5.40); RED CELL DISTRIBUTION WIDTH 23.6 % (11.5-14.5)
[2017-10-23 05:46] LABS: WHITE BLOOD COUNT 17.7 10^3/ul (4.8-10.8)
[2017-10-23] MEDS: morphine (ER) 15 MG TAB PO (05:46)
[2017-10-23 06:00] LABS: PHOSPHORUS 4.8 mg/dl (2.5-4.9)
[2017-10-23 06:09] LABS: POSITIVE DIFF @See below
[2017-10-23 06:20] LABS: ANION GAP 11 (8-16); BLOOD UREA NITROGEN 9 mg/dl (7-20); CALCIUM 8.6 mg/dl (8.4-10.2); CARBON DIOXIDE 27 mmol/L (21-31); CHLORIDE 106 mmol/L (97-110); CREATININE 0.68 mg/dl (0.44-1.00); GLUCOSE 94 mg/dl (70-220); POTASSIUM 3.8 mmol/L (3.5-5.1); SODIUM 140 mmol/L (135-144)
[2017-10-23] MEDS: DIPHENHYDRAMINE 50 MG CAP PO ×3 (06:27→18:25)
[2017-10-23] MEDS: SOD CHLORIDE 0.45% 1,000 ML IV ×2 (06:28→17:23)
[2017-10-23 06:51] LABS: LACTATE DEHYDROGENASE 757 IU/L (313-618)
[2017-10-23] MEDS: FLUTICASONE/VILANTEROL 100-25 INH (08:21)
[2017-10-23] MEDS: GABAPENTIN 300 MG CAP PO ×3 (08:23→21:27)
[2017-10-23] MEDS: MULTIVITAMINS THERAPEUTIC TAB PO (08:23)
[2017-10-23] MEDS: NAPROXEN 500 MG TAB PO ×2 (08:23→21:27)
[2017-10-23] MEDS: SENNA/DOCUSATE NA (8.6MG/50MG) TAB PO ×2 (08:23→21:27)
[2017-10-23] MEDS: FOLIC ACID 1 MG TAB PO (08:24)
[2017-10-23] MEDS: SERTRALINE 100 MG TAB PO (08:24)
[2017-10-23] MEDS: HYDROXYUREA 500 MG CAP PO (09:00)
[2017-10-24] MEDS: DIPHENHYDRAMINE 50 MG CAP PO ×3 (00:28→13:16)
[2017-10-24] MEDS: SOD CHLORIDE 0.45% 1,000 ML IV ×3 (01:01→23:24)
[2017-10-24] MEDS: HYDROmorphONE 0.2 MG/ML PCA IV ×5 (01:01→23:39)
[2017-10-24] MEDS: MULTIVITAMINS THERAPEUTIC TAB PO (09:21)
[2017-10-24] MEDS: FLUTICASONE/VILANTEROL 100-25 INH (09:22)
[2017-10-24] MEDS: GABAPENTIN 300 MG CAP PO ×3 (09:22→21:40)
[2017-10-24] MEDS: SERTRALINE 100 MG TAB PO (09:22)
[2017-10-24] MEDS: SENNA/DOCUSATE NA (8.6MG/50MG) TAB PO ×2 (09:22→21:40)
[2017-10-24] MEDS: FOLIC ACID 1 MG TAB PO (09:22)
[2017-10-24] MEDS: NAPROXEN 500 MG TAB PO ×2 (09:22→21:41)
[2017-10-24] MEDS: HYDROXYUREA 500 MG CAP PO (10:03)
[2017-10-24] MEDS: MAGNESIUM HYDROXIDE 30ML CUP PO (11:16)
[2017-10-24] MEDS: DIPHENHYDRAMINE 25 MG CAP PO (19:14)
[2017-10-25] MEDS: DIPHENHYDRAMINE 25 MG CAP PO ×4 (02:39→20:39)
[2017-10-25] MEDS: HYDROmorphONE 0.2 MG/ML PCA IV ×2 (04:06→11:04)
[2017-10-25] MEDS: SOD CHLORIDE 0.45% 1,000 ML IV ×2 (05:01→17:59)
[2017-10-25] MEDS: FOLIC ACID 1 MG TAB PO (08:56)
[2017-10-25] MEDS: MULTIVITAMINS THERAPEUTIC TAB PO (08:56)
[2017-10-25] MEDS: SENNA/DOCUSATE NA (8.6MG/50MG) TAB PO ×2 (08:56→20:39)
[2017-10-25] MEDS: GABAPENTIN 300 MG CAP PO ×3 (08:56→20:39)
[2017-10-25] MEDS: NAPROXEN 500 MG TAB PO ×2 (08:56→20:38)
[2017-10-25] MEDS: HYDROXYUREA 500 MG CAP PO (08:57)
[2017-10-25] MEDS: SERTRALINE 100 MG TAB PO (08:58)
[2017-10-25] MEDS: FLUTICASONE/VILANTEROL 100-25 INH (08:59)
[2017-10-25 09:52] LABS: ADD MAN DIFF? NO
[2017-10-25 10:06] LABS: ABNORMAL IP MESSAGE 1; BASOPHIL # 0.1 10^3/ul (0.0-0.1); BASOPHILS % 0.3 % (0.0-2.0); EOSINOPHILS # 1.6 10^3/ul (0.0-0.5); EOSINOPHILS % 9.5 % (0.0-7.0); HEMATOCRIT 24.5 % (37.0-47.0); HEMOGLOBIN 8.5 g/dl (12.0-16.0); LYMPHOCYTES # 4.6 10^3/ul (0.8-2.9); LYMPHOCYTES % 26.7 % (15.0-51.0); MEAN CORPUSCULAR HEMOGLOBIN 26.4 pg (29.0-33.0); MEAN CORPUSCULAR HGB CONC 34.7 g/dl (32.0-37.0); MEAN CORPUSCULAR VOLUME 76.1 fl (82.0-101.0); MEAN PLATELET VOLUME 9.1 fl (7.4-10.4); MONOCYTE # 1.4 10^3/ul (0.3-0.9); MONOCYTES % 7.9 % (0.0-11.0); NEUTROPHIL # 9.5 10^3/ul (1.6-7.5); NEUTROPHILS % 55.2 % (39.0-77.0); NUCLEATED RED BLOOD CELLS # 1.7 10^3/ul (0.0-0.0); NUCLEATED RED BLOOD CELLS% 9.8 /100WBC (0.0-0.0); PLATELET COUNT 288 10^3/UL (140-415); RED BLOOD COUNT 3.22 10^6/ul (4.20-5.40); RED CELL DISTRIBUTION WIDTH 23.9 % (11.5-14.5)
[2017-10-25 10:06] LABS: WHITE BLOOD COUNT 17.3 10^3/ul (4.8-10.8)
[2017-10-25 10:10] LABS: POSITIVE DIFF @See below
[2017-10-25 10:11] LABS: ANION GAP 8 (8-16); BLOOD UREA NITROGEN 9 mg/dl (7-20); CALCIUM 8.8 mg/dl (8.4-10.2); CARBON DIOXIDE 32 mmol/L (21-31); CHLORIDE 103 mmol/L (97-110); CREATININE 0.71 mg/dl (0.44-1.00); GLUCOSE 91 mg/dl (70-220); POTASSIUM 4.2 mmol/L (3.5-5.1); SODIUM 139 mmol/L (135-144)
[2017-10-25] MEDS: HYDROmorphONE 4 MG TAB PO ×2 (15:15→19:01)
[2017-10-26] MEDS: HYDROmorphONE 4 MG TAB PO ×3 (00:45→09:13)
[2017-10-26] MEDS: DIPHENHYDRAMINE 25 MG CAP PO ×3 (04:09→17:36)
[2017-10-26] MEDS: SOD CHLORIDE 0.45% 1,000 ML IV ×2 (05:04→17:34)
[2017-10-26] MEDS: SERTRALINE 100 MG TAB PO (09:13)
[2017-10-26] MEDS: FOLIC ACID 1 MG TAB PO (09:13)
[2017-10-26] MEDS: NAPROXEN 500 MG TAB PO ×2 (09:13→21:07)
[2017-10-26] MEDS: SENNA/DOCUSATE NA (8.6MG/50MG) TAB PO ×2 (09:13→21:07)
[2017-10-26] MEDS: GABAPENTIN 300 MG CAP PO ×3 (09:14→21:07)
[2017-10-26] MEDS: MULTIVITAMINS THERAPEUTIC TAB PO (09:14)
[2017-10-26] MEDS: FLUTICASONE/VILANTEROL 100-25 INH (09:22)
[2017-10-26] MEDS: HYDROXYUREA 500 MG CAP PO (11:11)
[2017-10-26] MEDS: HYDROmorphONE 2 MG TAB PO ×2 (14:11→18:43)
[2017-10-26] MEDS ORDERED: HYDROmorphONE 2 MG TAB PO (15:30)
[2017-10-27] MEDS: SOD CHLORIDE 0.45% 1,000 ML IV ×4 (00:16→22:51)
[2017-10-27] MEDS: HYDROmorphONE 2 MG TAB PO ×6 (00:24→22:51)
[2017-10-27] MEDS: DIPHENHYDRAMINE 25 MG CAP PO ×4 (00:24→18:50)
[2017-10-27] MEDS: SENNA/DOCUSATE NA (8.6MG/50MG) TAB PO ×2 (09:26→20:23)
[2017-10-27] MEDS: GABAPENTIN 300 MG CAP PO ×3 (09:26→20:23)
[2017-10-27] MEDS: FOLIC ACID 1 MG TAB PO (09:26)
[2017-10-27] MEDS: NAPROXEN 500 MG TAB PO ×2 (09:26→20:23)
[2017-10-27] MEDS: SERTRALINE 100 MG TAB PO (09:26)
[2017-10-27] MEDS: MULTIVITAMINS THERAPEUTIC TAB PO (09:26)
[2017-10-27] MEDS: FLUTICASONE/VILANTEROL 100-25 INH (09:27)
[2017-10-27] MEDS: HYDROXYUREA 500 MG CAP PO (09:28)
[2017-10-28] MEDS: DIPHENHYDRAMINE 25 MG CAP PO ×4 (00:54→18:52)
[2017-10-28] MEDS: HYDROmorphONE 2 MG TAB PO ×3 (03:02→11:00)
[2017-10-28 04:59] LABS: ADD MAN DIFF? NO
[2017-10-28 05:10] LABS: ABNORMAL IP MESSAGE 1; BASOPHILS % 0.3 % (0.0-2.0); EOSINOPHILS # 1.1 10^3/ul (0.0-0.5); EOSINOPHILS % 9.2 % (0.0-7.0); HEMATOCRIT 26.8 % (37.0-47.0); HEMOGLOBIN 9.3 g/dl (12.0-16.0); LYMPHOCYTES # 3.4 10^3/ul (0.8-2.9); LYMPHOCYTES % 28.8 % (15.0-51.0); MEAN CORPUSCULAR HEMOGLOBIN 26.6 pg (29.0-33.0); MEAN CORPUSCULAR HGB CONC 34.7 g/dl (32.0-37.0); MEAN CORPUSCULAR VOLUME 76.6 fl (82.0-101.0); MEAN PLATELET VOLUME 9.1 fl (7.4-10.4); MONOCYTE # 0.9 10^3/ul (0.3-0.9); MONOCYTES % 7.5 % (0.0-11.0); NEUTROPHIL # 6.4 10^3/ul (1.6-7.5); NEUTROPHILS % 53.9 % (39.0-77.0); NUCLEATED RED BLOOD CELLS% 0.3 /100WBC (0.0-0.0); PLATELET COUNT 289 10^3/UL (140-415); RED CELL DISTRIBUTION WIDTH 23.5 % (11.5-14.5)
[2017-10-28 05:10] LABS: WHITE BLOOD COUNT 11.9 10^3/ul (4.8-10.8)
[2017-10-28 05:18] LABS: POSITIVE DIFF @See below
[2017-10-28 05:27] LABS: ANION GAP 11 (8-16); BLOOD UREA NITROGEN 12 mg/dl (7-20); CALCIUM 8.8 mg/dl (8.4-10.2); CARBON DIOXIDE 28 mmol/L (21-31); CHLORIDE 103 mmol/L (97-110); CREATININE 0.73 mg/dl (0.44-1.00); GLUCOSE 106 mg/dl (70-220); POTASSIUM 3.8 mmol/L (3.5-5.1); SODIUM 138 mmol/L (135-144)
[2017-10-28] MEDS: MULTIVITAMINS THERAPEUTIC TAB PO (08:21)
[2017-10-28] MEDS: NAPROXEN 500 MG TAB PO ×2 (08:21→20:57)
[2017-10-28] MEDS: GABAPENTIN 300 MG CAP PO ×3 (08:21→20:57)
[2017-10-28] MEDS: SENNA/DOCUSATE NA (8.6MG/50MG) TAB PO ×2 (08:21→20:57)
[2017-10-28] MEDS: FOLIC ACID 1 MG TAB PO (08:21)
[2017-10-28] MEDS: SERTRALINE 100 MG TAB PO (08:21)
[2017-10-28] MEDS: HYDROXYUREA 500 MG CAP PO (08:23)
[2017-10-28] MEDS: SOD CHLORIDE 0.45% 1,000 ML IV ×2 (10:23→20:59)
[2017-10-28] MEDS: FLUTICASONE/VILANTEROL 100-25 INH (10:30)
[2017-10-28] MEDS: HYDROmorphONE 1 MG/ML SYG IV ×3 (14:52→23:01)
[2017-10-29] MEDS: HYDROmorphONE 1 MG/ML SYG IV ×6 (03:03→23:02)
[2017-10-29] MEDS: DIPHENHYDRAMINE 50 MG INJ IV ×5 (03:03→23:02)
[2017-10-29 05:02] LABS: ADD MAN DIFF? NO
[2017-10-29 05:07] LABS: ABNORMAL IP MESSAGE 1; BASOPHILS % 0.3 % (0.0-2.0); EOSINOPHILS # 0.9 10^3/ul (0.0-0.5); EOSINOPHILS % 9.3 % (0.0-7.0); HEMATOCRIT 25.2 % (37.0-47.0); HEMOGLOBIN 8.8 g/dl (12.0-16.0); LYMPHOCYTES # 2.6 10^3/ul (0.8-2.9); LYMPHOCYTES % 27.3 % (15.0-51.0); MEAN CORPUSCULAR HEMOGLOBIN 26.3 pg (29.0-33.0); MEAN CORPUSCULAR HGB CONC 34.9 g/dl (32.0-37.0); MEAN CORPUSCULAR VOLUME 75.4 fl (82.0-101.0); MEAN PLATELET VOLUME 9.4 fl (7.4-10.4); MONOCYTE # 0.8 10^3/ul (0.3-0.9); MONOCYTES % 8.2 % (0.0-11.0); NEUTROPHIL # 5.2 10^3/ul (1.6-7.5); NEUTROPHILS % 54.7 % (39.0-77.0); PLATELET COUNT 273 10^3/UL (140-415); RED BLOOD COUNT 3.34 10^6/ul (4.20-5.40)
[2017-10-29 05:07] LABS: WHITE BLOOD COUNT 9.6 10^3/ul (4.8-10.8)
[2017-10-29 05:13] LABS: POSITIVE DIFF @See below
[2017-10-29 05:29] LABS: ANION GAP 10 (8-16); BLOOD UREA NITROGEN 10 mg/dl (7-20); CALCIUM 8.6 mg/dl (8.4-10.2); CARBON DIOXIDE 27 mmol/L (21-31); CHLORIDE 104 mmol/L (97-110); CREATININE 0.68 mg/dl (0.44-1.00); GLUCOSE 102 mg/dl (70-220); POTASSIUM 3.6 mmol/L (3.5-5.1); SODIUM 137 mmol/L (135-144)
[2017-10-29] MEDS: SOD CHLORIDE 0.45% 1,000 ML IV ×2 (07:01→17:11)
[2017-10-29] MEDS: SERTRALINE 100 MG TAB PO (08:42)
[2017-10-29] MEDS: FLUTICASONE/VILANTEROL 100-25 INH (08:42)
[2017-10-29] MEDS: FOLIC ACID 1 MG TAB PO (08:43)
[2017-10-29] MEDS: HYDROXYUREA 500 MG CAP PO (08:43)
[2017-10-29] MEDS: NAPROXEN 500 MG TAB PO ×2 (08:43→20:48)
[2017-10-29] MEDS: SENNA/DOCUSATE NA (8.6MG/50MG) TAB PO ×2 (08:43→20:48)
[2017-10-29] MEDS: MULTIVITAMINS THERAPEUTIC TAB PO (08:44)
[2017-10-29] MEDS: GABAPENTIN 300 MG CAP PO ×3 (08:44→20:48)
[2017-10-30] MEDS: DIPHENHYDRAMINE 50 MG INJ IV ×6 (03:02→22:58)
[2017-10-30] MEDS: HYDROmorphONE 1 MG/ML SYG IV ×6 (03:02→22:58)
[2017-10-30 05:31] LABS: ADD MAN DIFF? NO
[2017-10-30 05:37] LABS: WHITE BLOOD COUNT 10.3 10^3/ul (4.8-10.8)
[2017-10-30 05:37] LABS: ABNORMAL IP MESSAGE 1; BASOPHIL # 0.1 10^3/ul (0.0-0.1); BASOPHILS % 0.5 % (0.0-2.0); EOSINOPHILS # 0.9 10^3/ul (0.0-0.5); EOSINOPHILS % 8.7 % (0.0-7.0); HEMATOCRIT 25.9 % (37.0-47.0); LYMPHOCYTES # 2.7 10^3/ul (0.8-2.9); MEAN CORPUSCULAR HEMOGLOBIN 26.5 pg (29.0-33.0); MEAN CORPUSCULAR HGB CONC 34.7 g/dl (32.0-37.0); MEAN CORPUSCULAR VOLUME 76.2 fl (82.0-101.0); MONOCYTE # 0.8 10^3/ul (0.3-0.9); MONOCYTES % 7.6 % (0.0-11.0); NEUTROPHIL # 5.8 10^3/ul (1.6-7.5); NEUTROPHILS % 56.9 % (39.0-77.0); PLATELET COUNT 272 10^3/UL (140-415); RED CELL DISTRIBUTION WIDTH 22.7 % (11.5-14.5)
[2017-10-30 05:42] LABS: POSITIVE DIFF @See below
[2017-10-30 06:11] LABS: ANION GAP 11 (8-16); BLOOD UREA NITROGEN 11 mg/dl (7-20); CALCIUM 8.8 mg/dl (8.4-10.2); CARBON DIOXIDE 27 mmol/L (21-31); CHLORIDE 105 mmol/L (97-110); CREATININE 0.67 mg/dl (0.44-1.00); GLUCOSE 86 mg/dl (70-220); POTASSIUM 4.1 mmol/L (3.5-5.1); SODIUM 139 mmol/L (135-144)
[2017-10-30] MEDS: SOD CHLORIDE 0.45% 1,000 ML IV ×2 (06:53→20:12)
[2017-10-30] MEDS: FLUTICASONE/VILANTEROL 100-25 INH (08:39)
[2017-10-30] MEDS: MULTIVITAMINS THERAPEUTIC TAB PO (08:40)
[2017-10-30] MEDS: GABAPENTIN 300 MG CAP PO ×3 (08:40→20:12)
[2017-10-30] MEDS: SENNA/DOCUSATE NA (8.6MG/50MG) TAB PO ×2 (08:40→20:11)
[2017-10-30] MEDS: NAPROXEN 500 MG TAB PO ×2 (08:40→20:12)
[2017-10-30] MEDS: FOLIC ACID 1 MG TAB PO (08:40)
[2017-10-30] MEDS: HYDROXYUREA 500 MG CAP PO (08:40)
[2017-10-30] MEDS: SERTRALINE 100 MG TAB PO (08:41)
[2017-10-30] MEDS: ZOLPIDEM 5 MG TAB PO (21:59)
[2017-10-31] MEDS: HYDROmorphONE 1 MG/ML SYG IV ×6 (02:57→22:42)
[2017-10-31] MEDS: DIPHENHYDRAMINE 50 MG INJ IV ×6 (02:57→22:42)
[2017-10-31 06:42] LABS: ADD MAN DIFF? NO
[2017-10-31 06:45] LABS: WHITE BLOOD COUNT 9.6 10^3/ul (4.8-10.8)
[2017-10-31 06:45] LABS: ABNORMAL IP MESSAGE 1; BASOPHIL # 0.1 10^3/ul (0.0-0.1); BASOPHILS % 0.7 % (0.0-2.0); EOSINOPHILS # 0.8 10^3/ul (0.0-0.5); EOSINOPHILS % 7.9 % (0.0-7.0); HEMATOCRIT 25.8 % (37.0-47.0); LYMPHOCYTES # 2.6 10^3/ul (0.8-2.9); MEAN CORPUSCULAR HEMOGLOBIN 26.1 pg (29.0-33.0); MEAN CORPUSCULAR HGB CONC 34.9 g/dl (32.0-37.0); MEAN CORPUSCULAR VOLUME 74.8 fl (82.0-101.0); MEAN PLATELET VOLUME 9.2 fl (7.4-10.4); MONOCYTE # 0.7 10^3/ul (0.3-0.9); NEUTROPHIL # 5.5 10^3/ul (1.6-7.5); NEUTROPHILS % 57.1 % (39.0-77.0); NUCLEATED RED BLOOD CELLS% 0.2 /100WBC (0.0-0.0); PLATELET COUNT 254 10^3/UL (140-415); RED BLOOD COUNT 3.45 10^6/ul (4.20-5.40); RED CELL DISTRIBUTION WIDTH 22.7 % (11.5-14.5)
[2017-10-31 07:05] LABS: POSITIVE DIFF @See below
[2017-10-31 07:15] LABS: ANION GAP 11 (8-16); BLOOD UREA NITROGEN 11 mg/dl (7-20); CALCIUM 8.6 mg/dl (8.4-10.2); CARBON DIOXIDE 26 mmol/L (21-31); CHLORIDE 105 mmol/L (97-110); CREATININE 0.74 mg/dl (0.44-1.00); GLUCOSE 83 mg/dl (70-220); POTASSIUM 4.2 mmol/L (3.5-5.1); SODIUM 138 mmol/L (135-144)
[2017-10-31] MEDS: SENNA/DOCUSATE NA (8.6MG/50MG) TAB PO ×2 (09:29→21:27)
[2017-10-31] MEDS: FLUTICASONE/VILANTEROL 100-25 INH (09:29)
[2017-10-31] MEDS: FOLIC ACID 1 MG TAB PO (09:29)
[2017-10-31] MEDS: HYDROXYUREA 500 MG CAP PO (09:29)
[2017-10-31] MEDS: MULTIVITAMINS THERAPEUTIC TAB PO (09:29)
[2017-10-31] MEDS: SERTRALINE 100 MG TAB PO (09:29)
[2017-10-31] MEDS: NAPROXEN 500 MG TAB PO ×2 (09:29→21:27)
[2017-10-31] MEDS: GABAPENTIN 300 MG CAP PO ×3 (09:29→21:27)
[2017-10-31] MEDS: SOD CHLORIDE 0.45% 1,000 ML IV (10:42)
[2017-10-31] MEDS: ZOLPIDEM 5 MG TAB PO (23:54)
[2017-11-01] MEDS: SOD CHLORIDE 0.45% 1,000 ML IV ×2 (01:26→15:40)
[2017-11-01] MEDS: HYDROmorphONE 1 MG/ML SYG IV ×4 (02:45→14:44)
[2017-11-01] MEDS: DIPHENHYDRAMINE 50 MG INJ IV ×6 (02:45→22:47)
[2017-11-01 05:36] LABS: ADD MAN DIFF? NO
[2017-11-01 05:41] LABS: ABNORMAL IP MESSAGE 1; BASOPHIL # 0.1 10^3/ul (0.0-0.1); BASOPHILS % 0.6 % (0.0-2.0); EOSINOPHILS # 0.8 10^3/ul (0.0-0.5); EOSINOPHILS % 7.2 % (0.0-7.0); HEMATOCRIT 25.5 % (37.0-47.0); HEMOGLOBIN 8.8 g/dl (12.0-16.0); LYMPHOCYTES # 2.7 10^3/ul (0.8-2.9); LYMPHOCYTES % 23.3 % (15.0-51.0); MEAN CORPUSCULAR HEMOGLOBIN 25.9 pg (29.0-33.0); MEAN CORPUSCULAR HGB CONC 34.5 g/dl (32.0-37.0); MEAN PLATELET VOLUME 9.6 fl (7.4-10.4); MONOCYTE # 0.8 10^3/ul (0.3-0.9); MONOCYTES % 6.8 % (0.0-11.0); NEUTROPHIL # 7.2 10^3/ul (1.6-7.5); NEUTROPHILS % 61.8 % (39.0-77.0); PLATELET COUNT 294 10^3/UL (140-415); RED CELL DISTRIBUTION WIDTH 22.5 % (11.5-14.5)
[2017-11-01 05:41] LABS: WHITE BLOOD COUNT 11.6 10^3/ul (4.8-10.8)
[2017-11-01 05:50] LABS: POSITIVE DIFF @See below
[2017-11-01] MEDS: NAPROXEN 500 MG TAB PO ×2 (09:06→21:10)
[2017-11-01] MEDS: SERTRALINE 100 MG TAB PO (09:06)
[2017-11-01] MEDS: FOLIC ACID 1 MG TAB PO (09:06)
[2017-11-01] MEDS: HYDROXYUREA 500 MG CAP PO (09:06)
[2017-11-01] MEDS: GABAPENTIN 300 MG CAP PO ×3 (09:06→21:10)
[2017-11-01] MEDS: SENNA/DOCUSATE NA (8.6MG/50MG) TAB PO ×2 (09:06→21:10)
[2017-11-01] MEDS: FLUTICASONE/VILANTEROL 100-25 INH (09:07)
[2017-11-01] MEDS: MULTIVITAMINS THERAPEUTIC TAB PO (09:07)
[2017-11-01] MEDS: HYDROmorphONE 2 MG/ML SYG IV ×2 (18:44→22:47)
[2017-11-02] MEDS: ZOLPIDEM 5 MG TAB PO ×2 (00:06→23:52)
[2017-11-02] MEDS: HYDROmorphONE 2 MG/ML SYG IV ×5 (05:03→21:29)
[2017-11-02] MEDS: DIPHENHYDRAMINE 50 MG INJ IV ×5 (05:03→21:29)
[2017-11-02] MEDS: SOD CHLORIDE 0.45% 1,000 ML IV (05:03)
[2017-11-02 06:59] LABS: ADD MAN DIFF? NO
[2017-11-02 07:11] LABS: WHITE BLOOD COUNT 12.4 10^3/ul (4.8-10.8)
[2017-11-02 07:11] LABS: ABNORMAL IP MESSAGE 1; BASOPHIL # 0.1 10^3/ul (0.0-0.1); BASOPHILS % 0.6 % (0.0-2.0); EOSINOPHILS # 0.8 10^3/ul (0.0-0.5); EOSINOPHILS % 6.1 % (0.0-7.0); HEMATOCRIT 27.2 % (37.0-47.0); HEMOGLOBIN 9.4 g/dl (12.0-16.0); LYMPHOCYTES # 2.9 10^3/ul (0.8-2.9); LYMPHOCYTES % 23.5 % (15.0-51.0); MEAN CORPUSCULAR HEMOGLOBIN 25.8 pg (29.0-33.0); MEAN CORPUSCULAR HGB CONC 34.6 g/dl (32.0-37.0); MEAN CORPUSCULAR VOLUME 74.5 fl (82.0-101.0); MEAN PLATELET VOLUME 9.1 fl (7.4-10.4); MONOCYTE # 0.8 10^3/ul (0.3-0.9); MONOCYTES % 6.3 % (0.0-11.0); NEUTROPHIL # 7.8 10^3/ul (1.6-7.5); NEUTROPHILS % 63.3 % (39.0-77.0); PLATELET COUNT 324 10^3/UL (140-415); RED BLOOD COUNT 3.65 10^6/ul (4.20-5.40); RED CELL DISTRIBUTION WIDTH 22.6 % (11.5-14.5)
[2017-11-02 07:15] LABS: POSITIVE DIFF @See below
[2017-11-02 07:27] LABS: ANION GAP 13 (8-16); BLOOD UREA NITROGEN 12 mg/dl (7-20); CALCIUM 8.8 mg/dl (8.4-10.2); CARBON DIOXIDE 25 mmol/L (21-31); CHLORIDE 105 mmol/L (97-110); CREATININE 0.75 mg/dl (0.44-1.00); GLUCOSE 89 mg/dl (70-220); POTASSIUM 4.2 mmol/L (3.5-5.1); SODIUM 139 mmol/L (135-144)
[2017-11-02] MEDS: FLUTICASONE/VILANTEROL 100-25 INH (09:10)
[2017-11-02] MEDS: FOLIC ACID 1 MG TAB PO (09:10)
[2017-11-02] MEDS: GABAPENTIN 300 MG CAP PO ×3 (09:10→21:29)
[2017-11-02] MEDS: MULTIVITAMINS THERAPEUTIC TAB PO (09:10)
[2017-11-02] MEDS: SENNA/DOCUSATE NA (8.6MG/50MG) TAB PO ×2 (09:10→21:30)
[2017-11-02] MEDS: SERTRALINE 100 MG TAB PO (09:11)
[2017-11-02] MEDS: HYDROXYUREA 500 MG CAP PO (09:11)
[2017-11-02] MEDS: NAPROXEN 500 MG TAB PO ×2 (09:11→21:29)
[2017-11-02] MEDS: MAGNESIUM HYDROXIDE 30ML CUP PO (11:55)
[2017-11-03] MEDS: DIPHENHYDRAMINE 50 MG INJ IV ×6 (01:29→21:29)
[2017-11-03] MEDS: HYDROmorphONE 2 MG/ML SYG IV ×6 (01:30→21:30)
[2017-11-03] MEDS: SOD CHLORIDE 0.45% 1,000 ML IV (04:42)
[2017-11-03 05:23] LABS: ADD MAN DIFF? NO
[2017-11-03 05:27] LABS: WHITE BLOOD COUNT 11.4 10^3/ul (4.8-10.8)
[2017-11-03 05:27] LABS: ABNORMAL IP MESSAGE 1; BASOPHIL # 0.1 10^3/ul (0.0-0.1); BASOPHILS % 0.6 % (0.0-2.0); EOSINOPHILS # 0.9 10^3/ul (0.0-0.5); EOSINOPHILS % 7.5 % (0.0-7.0); HEMATOCRIT 26.5 % (37.0-47.0); HEMOGLOBIN 9.4 g/dl (12.0-16.0); LYMPHOCYTES % 25.9 % (15.0-51.0); MEAN CORPUSCULAR HEMOGLOBIN 26.7 pg (29.0-33.0); MEAN CORPUSCULAR HGB CONC 35.5 g/dl (32.0-37.0); MEAN CORPUSCULAR VOLUME 75.3 fl (82.0-101.0); MEAN PLATELET VOLUME 9.2 fl (7.4-10.4); MONOCYTE # 0.7 10^3/ul (0.3-0.9); MONOCYTES % 6.4 % (0.0-11.0); NEUTROPHIL # 6.8 10^3/ul (1.6-7.5); NEUTROPHILS % 59.2 % (39.0-77.0); PLATELET COUNT 353 10^3/UL (140-415); RED BLOOD COUNT 3.52 10^6/ul (4.20-5.40); RED CELL DISTRIBUTION WIDTH 22.4 % (11.5-14.5)
[2017-11-03 05:55] LABS: ANION GAP 11 (8-16); BLOOD UREA NITROGEN 12 mg/dl (7-20); CALCIUM 8.8 mg/dl (8.4-10.2); CARBON DIOXIDE 28 mmol/L (21-31); CHLORIDE 103 mmol/L (97-110); CREATININE 0.74 mg/dl (0.44-1.00); GLUCOSE 87 mg/dl (70-220); POTASSIUM 4.3 mmol/L (3.5-5.1); SODIUM 138 mmol/L (135-144)
[2017-11-03 06:17] LABS: POSITIVE DIFF @See below
[2017-11-03] MEDS: SENNA/DOCUSATE NA (8.6MG/50MG) TAB PO ×2 (09:24→20:16)
[2017-11-03] MEDS: FLUTICASONE/VILANTEROL 100-25 INH (09:24)
[2017-11-03] MEDS: GABAPENTIN 300 MG CAP PO ×3 (09:24→20:16)
[2017-11-03] MEDS: HYDROXYUREA 500 MG CAP PO (09:24)
[2017-11-03] MEDS: SERTRALINE 100 MG TAB PO (09:24)
[2017-11-03] MEDS: NAPROXEN 500 MG TAB PO ×2 (09:24→20:16)
[2017-11-03] MEDS: FOLIC ACID 1 MG TAB PO (09:24)
[2017-11-03] MEDS: MULTIVITAMINS THERAPEUTIC TAB PO (09:24)
[2017-11-03 15:03] LABS: B-TYPE NATRIURETIC PEPTIDE 33 PG/ML (0-125)
[2017-11-03 18:53] LABS: TROPONIN-I < 0.010 ng/ml (0.000-0.120)
[2017-11-04] MEDS: ZOLPIDEM 5 MG TAB PO (00:05)
[2017-11-04] MEDS: DIPHENHYDRAMINE 50 MG INJ IV ×6 (01:28→21:09)
[2017-11-04] MEDS: HYDROmorphONE 2 MG/ML SYG IV ×6 (01:29→21:09)
[2017-11-04 01:50] LABS: TROPONIN-I < 0.010 ng/ml (0.000-0.120)
[2017-11-04] MEDS: SOD CHLORIDE 0.45% 1,000 ML IV (05:27)
[2017-11-04 06:39] LABS: ADD MAN DIFF? NO
[2017-11-04 06:44] LABS: ABNORMAL IP MESSAGE 1; BASOPHIL # 0.1 10^3/ul (0.0-0.1); BASOPHILS % 0.5 % (0.0-2.0); EOSINOPHILS # 0.9 10^3/ul (0.0-0.5); EOSINOPHILS % 6.7 % (0.0-7.0); HEMATOCRIT 28.5 % (37.0-47.0); HEMOGLOBIN 9.8 g/dl (12.0-16.0); LYMPHOCYTES # 4.5 10^3/ul (0.8-2.9); LYMPHOCYTES % 32.7 % (15.0-51.0); MEAN CORPUSCULAR HEMOGLOBIN 25.9 pg (29.0-33.0); MEAN CORPUSCULAR HGB CONC 34.4 g/dl (32.0-37.0); MEAN CORPUSCULAR VOLUME 75.2 fl (82.0-101.0); MEAN PLATELET VOLUME 9.6 fl (7.4-10.4); MONOCYTES % 7.1 % (0.0-11.0); NEUTROPHIL # 7.2 10^3/ul (1.6-7.5); NEUTROPHILS % 52.8 % (39.0-77.0); PLATELET COUNT 416 10^3/UL (140-415); RED BLOOD COUNT 3.79 10^6/ul (4.20-5.40); RED CELL DISTRIBUTION WIDTH 22.2 % (11.5-14.5)
[2017-11-04 06:44] LABS: WHITE BLOOD COUNT 13.7 10^3/ul (4.8-10.8)
[2017-11-04 07:10] LABS: POSITIVE DIFF @See below
[2017-11-04 07:20] LABS: ANION GAP 13 (8-16); BLOOD UREA NITROGEN 12 mg/dl (7-20); CALCIUM 9.1 mg/dl (8.4-10.2); CARBON DIOXIDE 28 mmol/L (21-31); CHLORIDE 102 mmol/L (97-110); CHOL/HDL RATIO 2.7 RATIO; CHOLESTEROL 148 mg/dl (100-200); CREATININE 0.76 mg/dl (0.44-1.00); GLUCOSE 86 mg/dl (70-220); HDL CHOLESTEROL 53 mg/dl (34-82); LDL CHOLESTEROL,CALCULATED 69 mg/dl; POTASSIUM 4.1 mmol/L (3.5-5.1); SODIUM 139 mmol/L (135-144); TRIGLYCERIDES 128 mg/dl (0-149)
[2017-11-04 07:25] LABS: TROPONIN-I < 0.010 ng/ml (0.000-0.120)
[2017-11-04] MEDS: SERTRALINE 100 MG TAB PO (08:50)
[2017-11-04] MEDS: FOLIC ACID 1 MG TAB PO (08:50)
[2017-11-04] MEDS: GABAPENTIN 300 MG CAP PO ×3 (08:50→21:08)
[2017-11-04] MEDS: NAPROXEN 500 MG TAB PO ×2 (08:50→21:08)
[2017-11-04] MEDS: MULTIVITAMINS THERAPEUTIC TAB PO (08:50)
[2017-11-04] MEDS: SENNA/DOCUSATE NA (8.6MG/50MG) TAB PO ×2 (08:50→21:08)
[2017-11-04] MEDS: FLUTICASONE/VILANTEROL 100-25 INH (08:51)
[2017-11-04] MEDS: HYDROXYUREA 500 MG CAP PO (08:51)
[2017-11-04] MEDS ORDERED: HYDROmorphONE 1 MG/ML SYG (09:19)
[2017-11-05] MEDS: ZOLPIDEM 5 MG TAB PO (00:13)
[2017-11-05] MEDS: DIPHENHYDRAMINE 50 MG INJ IV ×4 (01:08→12:59)
[2017-11-05] MEDS: HYDROmorphONE 2 MG/ML SYG IV ×4 (01:09→12:59)
[2017-11-05] MEDS: SOD CHLORIDE 0.45% 1,000 ML IV (05:12)
[2017-11-05] MEDS: SENNA/DOCUSATE NA (8.6MG/50MG) TAB PO (08:18)
[2017-11-05] MEDS: FLUTICASONE/VILANTEROL 100-25 INH (08:18)
[2017-11-05] MEDS: NAPROXEN 500 MG TAB PO (08:18)
[2017-11-05] MEDS: FOLIC ACID 1 MG TAB PO (08:18)
[2017-11-05] MEDS: MULTIVITAMINS THERAPEUTIC TAB PO (08:18)
[2017-11-05] MEDS: GABAPENTIN 300 MG CAP PO ×2 (08:18→12:18)
[2017-11-05] MEDS: SERTRALINE 100 MG TAB PO (08:18)
[2017-11-05] MEDS: HYDROXYUREA 500 MG CAP PO (08:19)
[2017-11-05] MEDS: HEPARIN (100 UNITS/ML) 5 ML SYG CATHETER (13:22)
[2017-11-06 14:04] LABS: HAPTOGLOBIN <15 mg/dL (43-212)
== END 2017-11-05 13:57 | disposition home or self-care (01) | DRG 812 ==
LOC: PP2 10-19 13:51 → E/R 14:49 → PP2 18:27
DX: D57.00 Hb-SS disease with crisis, unspecified (principal); Z68.41 Body mass index [BMI] 40.0-44.9, adult; F33.8 Other recurrent depressive disorders; I42.9 Cardiomyopathy, unspecified; E66.01 Morbid (severe) obesity due to excess calories; F41.1 Generalized anxiety disorder; D72.829 Elevated white blood cell count, unspecified; R07.9 Chest pain, unspecified
CPT/HCPCS: 36415; 71045; 80048; 80053; 80061; 81001; 83010; 83615; 83735; 83880; 84100; 84484; 85025; 85045; 85660; 87086; 93005; 93306; 96361; 96374; 96375; 96376; 97116; 97161; 97530; 99285-25; G0378

== ENCOUNTER 2017-12-24 08:55 | Emergency (ER) | payer MEDICARE, OTHER ==
[2017-12-24 11:14] LABS: ADD MAN DIFF? NO
[2017-12-24] MEDS: SOD CHLORIDE 0.9% 1,000 ML IV (11:15)
[2017-12-24 11:16] LABS: BASOPHILS % 0.2 % (0.0-2.0); EOSINOPHILS # 0.1 10^3/ul (0.0-0.5); EOSINOPHILS % 0.8 % (0.0-7.0); HEMATOCRIT 30.6 % (37.0-47.0); HEMOGLOBIN 10.9 g/dl (12.0-16.0); LYMPHOCYTES # 1.8 10^3/ul (0.8-2.9); MEAN CORPUSCULAR HEMOGLOBIN 25.8 pg (29.0-33.0); MEAN CORPUSCULAR HGB CONC 35.6 g/dl (32.0-37.0); MEAN CORPUSCULAR VOLUME 72.5 fl (82.0-101.0); MEAN PLATELET VOLUME 8.7 fl (7.4-10.4); MONOCYTE # 0.6 10^3/ul (0.3-0.9); MONOCYTES % 6.9 % (0.0-11.0); NEUTROPHIL # 6.5 10^3/ul (1.6-7.5); NEUTROPHILS % 71.9 % (39.0-77.0); PLATELET COUNT 296 10^3/UL (140-415); RED BLOOD COUNT 4.22 10^6/ul (4.20-5.40)
[2017-12-24] MEDS: DIPHENHYDRAMINE 50 MG INJ IV ×3 (11:16→15:56)
[2017-12-24] MEDS: METOCLOPRAMIDE 10 MG INJ IV (11:16)
[2017-12-24] MEDS: HYDROmorphONE 1 MG/ML SYG IV ×2 (11:20→14:22)
[2017-12-24 11:31] LABS: ALANINE AMINOTRANSFERASE 16 IU/L (13-69); ALBUMIN/GLOBULIN RATIO 1.21; ALKALINE PHOSPHATASE 80 IU/L (42-121); ANION GAP 10 (8-16); ASPARTATE AMINO TRANSFERASE 21 IU/L (15-46); BILIRUBIN,INDIRECT 0.3 mg/dl (0-1.1); BILIRUBIN,TOTAL 0.3 mg/dl (0.2-1.3); BLOOD UREA NITROGEN 4 mg/dl (7-20); CALCIUM 8.9 mg/dl (8.4-10.2); CARBON DIOXIDE 28 mmol/L (21-31); CHLORIDE 106 mmol/L (97-110); CREATININE 0.63 mg/dl (0.44-1.00); GLUCOSE 97 mg/dl (70-220); SODIUM 140 mmol/L (135-144); TOTAL PROTEIN 7.3 g/dl (6.1-8.1)
[2017-12-24 11:35] LABS: INR 0.83; PROTIME 11.5 Sec (11.9-14.9); PT RATIO 0.9
[2017-12-24 11:42] LABS: TROPONIN-I < 0.012 ng/ml (0.000-0.120)
[2017-12-24] MEDS: SOD CHLORIDE 0.9% 100 ML (11:44)
[2017-12-24] MEDS: IOHEXOL 100 ML (11:45)
[2017-12-24 12:01] LABS: PARTIAL THROMBOPLASTIN TIME 86.1 Sec (23.0-35.0)
[2017-12-24 14:34] LABS: RETICULOCYTE RBC 4.26
[2017-12-24 14:34] LABS: RETICULOCYTE COUNT # 0.111 X10^6 (0.020-0.110); RETICULOCYTE COUNT % 2.6 % (0.5-1.5)
[2017-12-24 14:59] LABS: PARTIAL THROMBOPLASTIN TIME 32.8 Sec (23.0-35.0)
[2017-12-24] MEDS: HYDROmorphONE 2 MG/ML SYG IV (15:56)
[2017-12-24] MEDS: HEPARIN (100 UNITS/ML) 5 ML SYG CATHETER ×2 (17:37→17:55)
== END 2017-12-24 17:55 | disposition home or self-care (01) ==
LOC: E/R 08:55
DX: D57.00 Hb-SS disease with crisis, unspecified (principal); I50.9 Heart failure, unspecified; Z96.643 Presence of artificial hip joint, bilateral
CPT/HCPCS: 36415; 71275; 80053; 84484; 85025; 85045; 85610; 85730; 93005; 96374; 96375; 96376; 99285-25

== ENCOUNTER 2018-03-29 09:53 | Emergency (ER) | payer MEDICARE, OTHER ==
[2018-03-29] MEDS: SOD CHLORIDE 0.9% 1,000 ML IV (11:10)
[2018-03-29] MEDS: KETOROLAC 15 MG INJ IV (11:11)
[2018-03-29 11:21] LABS: ADD MAN DIFF? NO
[2018-03-29 11:22] LABS: WHITE BLOOD COUNT 11.4 10^3/ul (4.8-10.8)
[2018-03-29 11:22] LABS: BASOPHILS % 0.4 % (0.0-2.0); EOSINOPHILS # 0.3 10^3/ul (0.0-0.5); EOSINOPHILS % 2.2 % (0.0-7.0); HEMATOCRIT 29.3 % (37.0-47.0); HEMOGLOBIN 10.2 g/dl (12.0-16.0); LYMPHOCYTES # 2.8 10^3/ul (0.8-2.9); LYMPHOCYTES % 24.5 % (15.0-51.0); MEAN CORPUSCULAR HGB CONC 34.8 g/dl (32.0-37.0); MEAN CORPUSCULAR VOLUME 74.6 fl (82.0-101.0); MEAN PLATELET VOLUME 9.9 fl (7.4-10.4); MONOCYTE # 0.9 10^3/ul (0.3-0.9); MONOCYTES % 7.4 % (0.0-11.0); NEUTROPHIL # 7.5 10^3/ul (1.6-7.5); NEUTROPHILS % 65.2 % (39.0-77.0); NUCLEATED RED BLOOD CELLS% 0.2 /100WBC (0.0-0.0); PLATELET COUNT 272 10^3/UL (140-415); RED BLOOD COUNT 3.93 10^6/ul (4.20-5.40); RED CELL DISTRIBUTION WIDTH 19.4 % (11.5-14.5)
[2018-03-29 11:30] LABS: ALANINE AMINOTRANSFERASE 18 IU/L (13-69); ALBUMIN 4.4 g/dl (3.3-4.9); ALBUMIN/GLOBULIN RATIO 1.37; ALKALINE PHOSPHATASE 93 IU/L (42-121); ANION GAP 10 (5-13); ASPARTATE AMINO TRANSFERASE 27 IU/L (15-46); BILIRUBIN,INDIRECT 0.4 mg/dl (0-1.1); BILIRUBIN,TOTAL 0.4 mg/dl (0.2-1.3); BLOOD UREA NITROGEN 10 mg/dl (7-20); CALCIUM 9.3 mg/dl (8.4-10.2); CARBON DIOXIDE 25 mmol/L (21-31); CHLORIDE 103 mmol/L (97-110); CREATININE 0.74 mg/dl (0.44-1.00); Estimated GFR > 60 mL/min (>60); GLUCOSE 97 mg/dl (70-220); POTASSIUM 3.9 mmol/L (3.5-5.1); SODIUM 138 mmol/L (135-144); TOTAL PROTEIN 7.6 g/dl (6.1-8.1)
[2018-03-29] MEDS: DIPHENHYDRAMINE 50 MG INJ IV ×2 (12:04→13:18)
[2018-03-29] MEDS: HYDROmorphONE 2 MG/ML SYG IV (12:06)
[2018-03-29 12:15] LABS: RETICULOCYTE RBC 3.85
[2018-03-29 12:15] LABS: RETICULOCYTE COUNT # 0.159 X10^6 (0.020-0.110); RETICULOCYTE COUNT % 4.1 % (0.5-1.5)
[2018-03-29] MEDS: HYDROmorphONE 0.5 MG/0.5 ML SYG IV (13:25)
== END 2018-03-29 14:03 | disposition home or self-care (01) ==
LOC: E/R 09:53
DX: D57.00 Hb-SS disease with crisis, unspecified (principal); R00.0 Tachycardia, unspecified; D50.9 Iron deficiency anemia, unspecified; D72.829 Elevated white blood cell count, unspecified; R70.1 Abnormal plasma viscosity; M79.605 Pain in left leg; I50.9 Heart failure, unspecified
CPT/HCPCS: 36415; 80053; 81025; 85025; 85045; 96374; 96375; 96376; 99284-25

== ENCOUNTER 2018-06-06 16:54 | Inpatient (IN) | payer MEDICARE, OTHER ==
[2018-06-06 21:24] LABS: ADD MAN DIFF? NO
[2018-06-06 21:28] LABS: BASOPHILS % 0.3 % (0.0-2.0); EOSINOPHILS # 0.1 10^3/ul (0.0-0.5); EOSINOPHILS % 1.4 % (0.0-7.0); HEMATOCRIT 26.6 % (37.0-47.0); HEMOGLOBIN 9.4 g/dl (12.0-16.0); LYMPHOCYTES # 1.9 10^3/ul (0.8-2.9); LYMPHOCYTES % 19.1 % (15.0-51.0); MEAN CORPUSCULAR HEMOGLOBIN 24.9 pg (29.0-33.0); MEAN CORPUSCULAR HGB CONC 35.3 g/dl (32.0-37.0); MEAN CORPUSCULAR VOLUME 70.4 fl (82.0-101.0); MONOCYTE # 0.5 10^3/ul (0.3-0.9); MONOCYTES % 5.2 % (0.0-11.0); NEUTROPHIL # 7.5 10^3/ul (1.6-7.5); NEUTROPHILS % 73.7 % (39.0-77.0); PLATELET COUNT 242 10^3/UL (140-415); RED BLOOD COUNT 3.78 10^6/ul (4.20-5.40); RED CELL DISTRIBUTION WIDTH 20.1 % (11.5-14.5); RETICULOCYTE COUNT # 0.147 X10^6 (0.020-0.110); RETICULOCYTE COUNT % 3.9 % (0.5-1.5); RETICULOCYTE RBC 3.78
[2018-06-06 21:28] LABS: WHITE BLOOD COUNT 10.2 10^3/ul (4.8-10.8)
[2018-06-06] MEDS: SOD CHLORIDE 0.9% 1,000 ML IV (21:28)
[2018-06-06] MEDS: DIPHENHYDRAMINE 50 MG INJ IV ×2 (21:29→23:30)
[2018-06-06] MEDS: PANTOPRAZOLE 40 MG INJ IV (21:29)
[2018-06-06] MEDS: HYDROmorphONE 1 MG/ML SYG IV (21:29)
[2018-06-06 21:49] LABS: ALANINE AMINOTRANSFERASE 23 IU/L (13-69); ALBUMIN 4.3 g/dl (3.3-4.9); ALKALINE PHOSPHATASE 96 IU/L (42-121); ANION GAP 12 (5-13); ASPARTATE AMINO TRANSFERASE 30 IU/L (15-46); BILIRUBIN,INDIRECT 0.6 mg/dl (0-1.1); BILIRUBIN,TOTAL 0.6 mg/dl (0.2-1.3); BLOOD UREA NITROGEN 8 mg/dl (7-20); CALCIUM 9.1 mg/dl (8.4-10.2); CARBON DIOXIDE 24 mmol/L (21-31); CHLORIDE 103 mmol/L (97-110); Estimated GFR > 60 mL/min (>60); GLUCOSE 92 mg/dl (70-220); LIPASE 63 U/L (23-300); POTASSIUM 3.5 mmol/L (3.5-5.1); SODIUM 139 mmol/L (135-144); TOTAL PROTEIN 7.6 g/dl (6.1-8.1)
[2018-06-06 21:50] LABS: INR 0.93; PROTIME 12.6 Sec (11.9-14.9)
[2018-06-06 21:51] LABS: PARTIAL THROMBOPLASTIN TIME 29.1 Sec (23.0-35.0)
[2018-06-06 22:00] LABS: TROPONIN-I < 0.012 ng/ml (0.000-0.120)
[2018-06-06] MEDS ORDERED: ACETAMINOPHEN 325 MG TAB PO (23:00)
[2018-06-06] MEDS: HYDROmorphONE 2 MG/ML SYG IV (23:28)
[2018-06-06] MEDS ORDERED: HYDROmorphONE 2 MG/ML SYG IV (23:33)
[2018-06-07] MEDS ORDERED: DIPHENHYDRAMINE 50 MG INJ IV
[2018-06-07] MEDS ORDERED: D5-NS + KCL 20 MEQ 1,000 ML IV (01:30)
[2018-06-07] MEDS ORDERED: HYDROmorphONE 2 MG TAB PO (01:30)
[2018-06-07] MEDS: D5-NS + KCL 20 MEQ 1,000 ML IV ×2 (03:11→12:12)
[2018-06-07] MEDS: HYDROmorphONE 2 MG/ML SYG IV ×5 (03:45→20:07)
[2018-06-07] MEDS: DIPHENHYDRAMINE 50 MG INJ IV ×5 (03:46→20:07)
[2018-06-07 05:56] LABS: ADD MAN DIFF? NO
[2018-06-07 05:58] LABS: WHITE BLOOD COUNT 9.2 10^3/ul (4.8-10.8)
[2018-06-07 05:58] LABS: BASOPHILS % 0.3 % (0.0-2.0); EOSINOPHILS # 0.3 10^3/ul (0.0-0.5); EOSINOPHILS % 2.9 % (0.0-7.0); HEMATOCRIT 24.4 % (37.0-47.0); HEMOGLOBIN 8.6 g/dl (12.0-16.0); LYMPHOCYTES # 2.8 10^3/ul (0.8-2.9); MEAN CORPUSCULAR HEMOGLOBIN 24.9 pg (29.0-33.0); MEAN CORPUSCULAR HGB CONC 35.2 g/dl (32.0-37.0); MEAN CORPUSCULAR VOLUME 70.7 fl (82.0-101.0); MEAN PLATELET VOLUME 8.7 fl (7.4-10.4); MONOCYTE # 0.7 10^3/ul (0.3-0.9); MONOCYTES % 7.3 % (0.0-11.0); NEUTROPHIL # 5.3 10^3/ul (1.6-7.5); NEUTROPHILS % 58.1 % (39.0-77.0); PLATELET COUNT 161 10^3/UL (140-415); RED BLOOD COUNT 3.45 10^6/ul (4.20-5.40); RED CELL DISTRIBUTION WIDTH 19.9 % (11.5-14.5)
[2018-06-07] MEDS: PANTOPRAZOLE 40 MG INJ IV ×2 (06:27→17:49)
[2018-06-07 06:43] LABS: ANION GAP 10 (5-13); BLOOD UREA NITROGEN 6 mg/dl (7-20); CALCIUM 8.4 mg/dl (8.4-10.2); CARBON DIOXIDE 26 mmol/L (21-31); CHLORIDE 106 mmol/L (97-110); CREATININE 0.63 mg/dl (0.44-1.00); Estimated GFR > 60 mL/min (>60); GLUCOSE 93 mg/dl (70-220); POTASSIUM 3.5 mmol/L (3.5-5.1); SODIUM 142 mmol/L (135-144)
[2018-06-07] MEDS ORDERED: METOCLOPRAMIDE 10 MG INJ IV (18:00)
[2018-06-07] MEDS ORDERED: FENTAnyl 50 MCG/ML VIAL IV ×3 (18:00)
[2018-06-07] MEDS: PROPOFOL 20 ML (18:43)
[2018-06-07] MEDS: FENTAnyl 50 MCG/ML VIAL (18:43)
[2018-06-08] MEDS: DIPHENHYDRAMINE 50 MG INJ IV ×6 (00:09→20:13)
[2018-06-08] MEDS: HYDROmorphONE 2 MG/ML SYG IV ×6 (00:09→20:13)
[2018-06-08] MEDS: D5-NS + KCL 20 MEQ 1,000 ML IV ×3 (01:46→23:11)
[2018-06-08] MEDS: FAMOTIDINE 20 MG INJ IV ×2 (05:55→18:27)
[2018-06-08 06:07] LABS: ADD MAN DIFF? NO
[2018-06-08 06:09] LABS: WHITE BLOOD COUNT 7.8 10^3/ul (4.8-10.8)
[2018-06-08 06:09] LABS: BASOPHILS % 0.3 % (0.0-2.0); EOSINOPHILS # 0.4 10^3/ul (0.0-0.5); EOSINOPHILS % 5.7 % (0.0-7.0); HEMATOCRIT 24.9 % (37.0-47.0); HEMOGLOBIN 8.7 g/dl (12.0-16.0); LYMPHOCYTES # 1.8 10^3/ul (0.8-2.9); LYMPHOCYTES % 22.8 % (15.0-51.0); MEAN CORPUSCULAR HEMOGLOBIN 25.1 pg (29.0-33.0); MEAN CORPUSCULAR HGB CONC 34.9 g/dl (32.0-37.0); MEAN PLATELET VOLUME 8.5 fl (7.4-10.4); MONOCYTE # 0.6 10^3/ul (0.3-0.9); MONOCYTES % 7.2 % (0.0-11.0); NEUTROPHIL # 4.9 10^3/ul (1.6-7.5); NEUTROPHILS % 63.6 % (39.0-77.0); PLATELET COUNT 168 10^3/UL (140-415); RED BLOOD COUNT 3.46 10^6/ul (4.20-5.40); RED CELL DISTRIBUTION WIDTH 19.7 % (11.5-14.5)
[2018-06-08 06:36] LABS: ANION GAP 7 (5-13); BLOOD UREA NITROGEN 3 mg/dl (7-20); CALCIUM 8.3 mg/dl (8.4-10.2); CARBON DIOXIDE 28 mmol/L (21-31); CHLORIDE 104 mmol/L (97-110); CREATININE 0.55 mg/dl (0.44-1.00); Estimated GFR > 60 mL/min (>60); GLUCOSE 202 mg/dl (70-220); POTASSIUM 3.9 mmol/L (3.5-5.1); SODIUM 139 mmol/L (135-144)
[2018-06-08] MEDS: GABAPENTIN 300 MG CAP PO (20:17)
[2018-06-08] MEDS ORDERED: NON-FORMULARY/PATIENT OWN MED (Budesonide-Formoterol Fumarate* (Symbicort*) 2 PUFF) INHALATION (21:00)
[2018-06-08] MEDS: BUPROPION (SR) 150 MG TAB PO (22:01)
[2018-06-08] MEDS: ZOLPIDEM 5 MG TAB PO (23:08)
[2018-06-09] MEDS: HYDROmorphONE 2 MG/ML SYG IV ×6 (00:18→20:21)
[2018-06-09] MEDS: DIPHENHYDRAMINE 50 MG INJ IV ×6 (00:20→20:22)
[2018-06-09] MEDS: D5-NS + KCL 20 MEQ 1,000 ML IV ×3 (04:20→13:57)
[2018-06-09] MEDS: FAMOTIDINE 20 MG INJ IV ×2 (05:32→17:50)
[2018-06-09] MEDS: FLUTICASONE/VILANTEROL 200-25 INH DEVICE INH (09:37)
[2018-06-09] MEDS: GABAPENTIN 300 MG CAP PO ×3 (09:39→20:23)
[2018-06-09] MEDS: BUPROPION (SR) 150 MG TAB PO ×3 (09:39→22:46)
[2018-06-09] MEDS: ISOSORBIDE MONONITRATE(SR)30 MG TAB PO (09:39)
[2018-06-09] MEDS: SERTRALINE 100 MG TAB PO (09:40)
[2018-06-09] MEDS: HYDROXYUREA 500 MG CAP PO (09:54)
[2018-06-09] MEDS: ALPRAZOLAM 0.5 MG TAB PO (11:18)
[2018-06-09] MEDS ORDERED: AL HYDROX/MG HYDROX/SIMETH 30 ML CUP PO (20:00)
[2018-06-09] MEDS ORDERED: FAMOTIDINE 20 MG INJ IV (21:00)
[2018-06-09] MEDS: AL HYDROX/MG HYDROX/SIMETH 30 ML CUP PO (22:46)
[2018-06-09] MEDS: ZOLPIDEM 5 MG TAB PO (22:46)
[2018-06-10] MEDS: D5-NS + KCL 20 MEQ 1,000 ML IV ×3 (00:20→20:28)
[2018-06-10] MEDS: DIPHENHYDRAMINE 50 MG INJ IV ×6 (00:21→20:25)
[2018-06-10] MEDS: HYDROmorphONE 2 MG/ML SYG IV ×6 (00:21→20:25)
[2018-06-10] MEDS: AL HYDROX/MG HYDROX/SIMETH 30 ML CUP PO ×3 (05:09→22:13)
[2018-06-10 05:55] LABS: ADD MAN DIFF? NO
[2018-06-10 06:04] LABS: BASOPHILS % 0.4 % (0.0-2.0); EOSINOPHILS # 0.4 10^3/ul (0.0-0.5); EOSINOPHILS % 4.9 % (0.0-7.0); HEMATOCRIT 24.2 % (37.0-47.0); HEMOGLOBIN 8.4 g/dl (12.0-16.0); LYMPHOCYTES # 1.7 10^3/ul (0.8-2.9); LYMPHOCYTES % 19.7 % (15.0-51.0); MEAN CORPUSCULAR HEMOGLOBIN 25.1 pg (29.0-33.0); MEAN CORPUSCULAR HGB CONC 34.7 g/dl (32.0-37.0); MEAN CORPUSCULAR VOLUME 72.5 fl (82.0-101.0); MEAN PLATELET VOLUME 8.7 fl (7.4-10.4); MONOCYTE # 0.7 10^3/ul (0.3-0.9); MONOCYTES % 7.6 % (0.0-11.0); NEUTROPHIL # 5.7 10^3/ul (1.6-7.5); PLATELET COUNT 177 10^3/UL (140-415); RED BLOOD COUNT 3.34 10^6/ul (4.20-5.40); RED CELL DISTRIBUTION WIDTH 19.9 % (11.5-14.5)
[2018-06-10 06:04] LABS: WHITE BLOOD COUNT 8.5 10^3/ul (4.8-10.8)
[2018-06-10 06:41] LABS: ANION GAP 7 (5-13); BLOOD UREA NITROGEN 5 mg/dl (7-20); CALCIUM 8.5 mg/dl (8.4-10.2); CARBON DIOXIDE 29 mmol/L (21-31); CHLORIDE 103 mmol/L (97-110); CREATININE 0.66 mg/dl (0.44-1.00); Estimated GFR > 60 mL/min (>60); GLUCOSE 102 mg/dl (70-220); POTASSIUM 3.6 mmol/L (3.5-5.1); SODIUM 139 mmol/L (135-144)
[2018-06-10] MEDS: SERTRALINE 100 MG TAB PO (08:25)
[2018-06-10] MEDS: BUPROPION (SR) 150 MG TAB PO ×3 (08:25→20:24)
[2018-06-10] MEDS: GABAPENTIN 300 MG CAP PO ×3 (08:26→20:24)
[2018-06-10] MEDS: ISOSORBIDE MONONITRATE(SR)30 MG TAB PO (08:27)
[2018-06-10] MEDS: FLUTICASONE/VILANTEROL 200-25 INH DEVICE INH (08:27)
[2018-06-10] MEDS: HYDROXYUREA 500 MG CAP PO (08:29)
[2018-06-10] MEDS: FAMOTIDINE 20 MG INJ IV ×2 (08:38→22:13)
[2018-06-10] MEDS: ALPRAZOLAM 0.5 MG TAB PO (11:15)
[2018-06-10] MEDS: ZOLPIDEM 5 MG TAB PO (23:05)
[2018-06-11] MEDS: HYDROmorphONE 2 MG/ML SYG IV ×6 (00:26→20:21)
[2018-06-11] MEDS: DIPHENHYDRAMINE 50 MG INJ IV ×6 (00:26→20:21)
[2018-06-11] MEDS: D5-NS + KCL 20 MEQ 1,000 ML IV ×3 (03:00→16:13)
[2018-06-11 05:22] LABS: ADD MAN DIFF? NO
[2018-06-11 05:24] LABS: WHITE BLOOD COUNT 8.8 10^3/ul (4.8-10.8)
[2018-06-11 05:24] LABS: BASOPHILS % 0.3 % (0.0-2.0); EOSINOPHILS # 0.5 10^3/ul (0.0-0.5); EOSINOPHILS % 5.7 % (0.0-7.0); HEMATOCRIT 25.1 % (37.0-47.0); HEMOGLOBIN 8.6 g/dl (12.0-16.0); LYMPHOCYTES # 2.2 10^3/ul (0.8-2.9); LYMPHOCYTES % 24.8 % (15.0-51.0); MEAN CORPUSCULAR HEMOGLOBIN 24.7 pg (29.0-33.0); MEAN CORPUSCULAR HGB CONC 34.3 g/dl (32.0-37.0); MEAN CORPUSCULAR VOLUME 72.1 fl (82.0-101.0); MEAN PLATELET VOLUME 8.7 fl (7.4-10.4); MONOCYTE # 0.7 10^3/ul (0.3-0.9); MONOCYTES % 7.7 % (0.0-11.0); NEUTROPHIL # 5.3 10^3/ul (1.6-7.5); NEUTROPHILS % 60.8 % (39.0-77.0); NUCLEATED RED BLOOD CELLS% 0.2 /100WBC (0.0-0.0); PLATELET COUNT 212 10^3/UL (140-415); RED BLOOD COUNT 3.48 10^6/ul (4.20-5.40)
[2018-06-11] MEDS: AL HYDROX/MG HYDROX/SIMETH 30 ML CUP PO ×3 (05:25→21:34)
[2018-06-11 06:28] LABS: ANION GAP 8 (5-13); BLOOD UREA NITROGEN 3 mg/dl (7-20); CALCIUM 8.7 mg/dl (8.4-10.2); CARBON DIOXIDE 28 mmol/L (21-31); CHLORIDE 104 mmol/L (97-110); CREATININE 0.67 mg/dl (0.44-1.00); Estimated GFR > 60 mL/min (>60); GLUCOSE 87 mg/dl (70-220); POTASSIUM 3.8 mmol/L (3.5-5.1); SODIUM 140 mmol/L (135-144)
[2018-06-11] MEDS: FAMOTIDINE 20 MG INJ IV ×2 (08:27→21:34)
[2018-06-11] MEDS: SERTRALINE 100 MG TAB PO (08:29)
[2018-06-11] MEDS: GABAPENTIN 300 MG CAP PO ×3 (08:29→21:34)
[2018-06-11] MEDS: FLUTICASONE/VILANTEROL 200-25 INH DEVICE INH (08:29)
[2018-06-11] MEDS: BUPROPION (SR) 150 MG TAB PO ×3 (08:30→21:34)
[2018-06-11] MEDS: ISOSORBIDE MONONITRATE(SR)30 MG TAB PO (08:30)
[2018-06-11] MEDS: HYDROXYUREA 500 MG CAP PO (08:33)
[2018-06-11] MEDS: ALPRAZOLAM 0.5 MG TAB PO (10:58)
[2018-06-11] MEDS ORDERED: BISACODYL (EC) 5 MG TAB PO (22:58)
[2018-06-11] MEDS: BISACODYL (EC) 5 MG TAB PO (23:02)
[2018-06-11] MEDS: ZOLPIDEM 5 MG TAB PO (23:02)
[2018-06-12] MEDS: DIPHENHYDRAMINE 50 MG INJ IV ×6 (00:21→20:20)
[2018-06-12] MEDS: HYDROmorphONE 2 MG/ML SYG IV ×6 (00:21→20:20)
[2018-06-12] MEDS: AL HYDROX/MG HYDROX/SIMETH 30 ML CUP PO ×3 (05:40→22:34)
[2018-06-12 07:23] LABS: ADD MAN DIFF? NO
[2018-06-12 07:30] LABS: WHITE BLOOD COUNT 8.1 10^3/ul (4.8-10.8)
[2018-06-12 07:30] LABS: BASOPHILS % 0.4 % (0.0-2.0); EOSINOPHILS # 0.5 10^3/ul (0.0-0.5); EOSINOPHILS % 6.1 % (0.0-7.0); HEMATOCRIT 25.1 % (37.0-47.0); HEMOGLOBIN 8.6 g/dl (12.0-16.0); LYMPHOCYTES # 1.7 10^3/ul (0.8-2.9); LYMPHOCYTES % 21.4 % (15.0-51.0); MEAN CORPUSCULAR HEMOGLOBIN 24.9 pg (29.0-33.0); MEAN CORPUSCULAR HGB CONC 34.3 g/dl (32.0-37.0); MEAN CORPUSCULAR VOLUME 72.8 fl (82.0-101.0); MONOCYTE # 0.7 10^3/ul (0.3-0.9); MONOCYTES % 8.3 % (0.0-11.0); NEUTROPHIL # 5.1 10^3/ul (1.6-7.5); NEUTROPHILS % 63.6 % (39.0-77.0); NUCLEATED RED BLOOD CELLS% 0.4 /100WBC (0.0-0.0); PLATELET COUNT 212 10^3/UL (140-415); RED BLOOD COUNT 3.45 10^6/ul (4.20-5.40); RED CELL DISTRIBUTION WIDTH 20.1 % (11.5-14.5)
[2018-06-12 07:58] LABS: ALANINE AMINOTRANSFERASE 25 IU/L (13-69); ALBUMIN 3.8 g/dl (3.3-4.9); ALBUMIN/GLOBULIN RATIO 1.26; ALKALINE PHOSPHATASE 80 IU/L (42-121); ANION GAP 7 (5-13); ASPARTATE AMINO TRANSFERASE 19 IU/L (15-46); BILIRUBIN,INDIRECT 0.6 mg/dl (0-1.1); BILIRUBIN,TOTAL 0.6 mg/dl (0.2-1.3); BLOOD UREA NITROGEN 4 mg/dl (7-20); CALCIUM 8.8 mg/dl (8.4-10.2); CARBON DIOXIDE 30 mmol/L (21-31); CHLORIDE 103 mmol/L (97-110); CREATININE 0.67 mg/dl (0.44-1.00); Estimated GFR > 60 mL/min (>60); GLUCOSE 102 mg/dl (70-220); POTASSIUM 4.1 mmol/L (3.5-5.1); SODIUM 140 mmol/L (135-144); TOTAL PROTEIN 6.8 g/dl (6.1-8.1)
[2018-06-12] MEDS: D5-NS + KCL 20 MEQ 1,000 ML IV ×2 (08:19→14:31)
[2018-06-12] MEDS: HYDROXYUREA 500 MG CAP PO (08:21)
[2018-06-12] MEDS: BUPROPION (SR) 150 MG TAB PO ×3 (08:26→20:23)
[2018-06-12] MEDS: GABAPENTIN 300 MG CAP PO ×3 (08:26→20:23)
[2018-06-12] MEDS: FLUTICASONE/VILANTEROL 200-25 INH DEVICE INH (08:26)
[2018-06-12] MEDS: FAMOTIDINE 20 MG INJ IV (08:26)
[2018-06-12] MEDS: SERTRALINE 100 MG TAB PO (08:26)
[2018-06-12] MEDS: ISOSORBIDE MONONITRATE(SR)30 MG TAB PO (08:28)
[2018-06-12] MEDS: SENNA TAB PO ×2 (08:30→20:23)
[2018-06-12] MEDS: ALPRAZOLAM 0.5 MG TAB PO (10:52)
[2018-06-12] MEDS: SOD CHLORIDE 0.45% 1,000 ML IV (16:08)
[2018-06-12] MEDS: PANTOPRAZOLE (EC) 40 MG TAB PO (18:44)
[2018-06-12] MEDS: METOPROLOL 25 MG TAB PO (20:26)
[2018-06-12] MEDS: ZOLPIDEM 5 MG TAB PO (22:35)
[2018-06-13] MEDS: HYDROmorphONE 2 MG/ML SYG IV ×6 (00:23→20:23)
[2018-06-13] MEDS: DIPHENHYDRAMINE 50 MG INJ IV ×6 (00:26→20:23)
[2018-06-13] MEDS: SOD CHLORIDE 0.45% 1,000 ML IV ×2 (06:05→19:39)
[2018-06-13] MEDS: AL HYDROX/MG HYDROX/SIMETH 30 ML CUP PO ×3 (06:05→22:24)
[2018-06-13] MEDS: PANTOPRAZOLE (EC) 40 MG TAB PO ×2 (06:06→17:37)
[2018-06-13] MEDS: HYDROXYUREA 500 MG CAP PO (09:50)
[2018-06-13] MEDS: BUPROPION (SR) 150 MG TAB PO ×3 (09:52→20:22)
[2018-06-13] MEDS: ISOSORBIDE MONONITRATE(SR)30 MG TAB PO (09:52)
[2018-06-13] MEDS: FLUTICASONE/VILANTEROL 200-25 INH DEVICE INH (09:52)
[2018-06-13] MEDS: GABAPENTIN 300 MG CAP PO ×3 (09:53→20:22)
[2018-06-13] MEDS: SENNA TAB PO ×2 (09:53→20:22)
[2018-06-13] MEDS: SERTRALINE 100 MG TAB PO (09:56)
[2018-06-13] MEDS: METOPROLOL 25 MG TAB PO ×2 (09:57→20:22)
[2018-06-13] MEDS: ALPRAZOLAM 0.5 MG TAB PO (11:06)
[2018-06-13] MEDS: ZOLPIDEM 5 MG TAB PO (22:24)
[2018-06-14] MEDS: DIPHENHYDRAMINE 50 MG INJ IV ×6 (00:23→20:19)
[2018-06-14] MEDS: HYDROmorphONE 2 MG/ML SYG IV ×6 (00:23→20:19)
[2018-06-14] MEDS: AL HYDROX/MG HYDROX/SIMETH 30 ML CUP PO ×3 (05:54→22:02)
[2018-06-14] MEDS: PANTOPRAZOLE (EC) 40 MG TAB PO ×2 (05:54→18:25)
[2018-06-14] MEDS: BUPROPION (SR) 150 MG TAB PO ×3 (09:58→20:19)
[2018-06-14] MEDS: ISOSORBIDE MONONITRATE(SR)30 MG TAB PO (09:59)
[2018-06-14] MEDS: SENNA TAB PO ×2 (10:00→20:19)
[2018-06-14] MEDS: GABAPENTIN 300 MG CAP PO ×3 (10:00→20:19)
[2018-06-14] MEDS: METOPROLOL 25 MG TAB PO ×2 (10:01→20:29)
[2018-06-14] MEDS: FLUTICASONE/VILANTEROL 200-25 INH DEVICE INH (10:01)
[2018-06-14] MEDS: HYDROXYUREA 500 MG CAP PO (10:03)
[2018-06-14] MEDS: ALPRAZOLAM 0.5 MG TAB PO (10:14)
[2018-06-14] MEDS: SERTRALINE 100 MG TAB PO (10:14)
[2018-06-14] MEDS: SOD CHLORIDE 0.45% 1,000 ML IV (10:15)
[2018-06-14] MEDS: ZOLPIDEM 5 MG TAB PO (22:02)
[2018-06-15] MEDS: HYDROmorphONE 2 MG/ML SYG IV ×6 (00:23→20:27)
[2018-06-15] MEDS: DIPHENHYDRAMINE 50 MG INJ IV ×6 (00:23→20:27)
[2018-06-15] MEDS: SOD CHLORIDE 0.45% 1,000 ML IV ×2 (00:50→14:48)
[2018-06-15] MEDS: PANTOPRAZOLE (EC) 40 MG TAB PO ×2 (05:45→17:21)
[2018-06-15] MEDS: AL HYDROX/MG HYDROX/SIMETH 30 ML CUP PO ×3 (05:45→22:06)
[2018-06-15 06:17] LABS: ADD MAN DIFF? NO
[2018-06-15 06:30] LABS: BASOPHILS % 0.4 % (0.0-2.0); EOSINOPHILS # 0.5 10^3/ul (0.0-0.5); EOSINOPHILS % 5.3 % (0.0-7.0); HEMATOCRIT 25.2 % (37.0-47.0); HEMOGLOBIN 8.7 g/dl (12.0-16.0); LYMPHOCYTES # 2.3 10^3/ul (0.8-2.9); LYMPHOCYTES % 25.6 % (15.0-51.0); MEAN CORPUSCULAR HEMOGLOBIN 25.1 pg (29.0-33.0); MEAN CORPUSCULAR HGB CONC 34.5 g/dl (32.0-37.0); MEAN CORPUSCULAR VOLUME 72.6 fl (82.0-101.0); MONOCYTE # 0.8 10^3/ul (0.3-0.9); MONOCYTES % 9.4 % (0.0-11.0); NEUTROPHIL # 5.2 10^3/ul (1.6-7.5); NEUTROPHILS % 58.9 % (39.0-77.0); NUCLEATED RED BLOOD CELLS # 0.1 10^3/ul (0.0-0.0); NUCLEATED RED BLOOD CELLS% 0.7 /100WBC (0.0-0.0); PLATELET COUNT 201 10^3/UL (140-415); RED BLOOD COUNT 3.47 10^6/ul (4.20-5.40); RED CELL DISTRIBUTION WIDTH 20.5 % (11.5-14.5)
[2018-06-15 06:30] LABS: WHITE BLOOD COUNT 8.9 10^3/ul (4.8-10.8)
[2018-06-15 06:47] LABS: ANION GAP 5 (5-13); BLOOD UREA NITROGEN 8 mg/dl (7-20); CALCIUM 8.6 mg/dl (8.4-10.2); CARBON DIOXIDE 30 mmol/L (21-31); CHLORIDE 103 mmol/L (97-110); CREATININE 0.73 mg/dl (0.44-1.00); Estimated GFR > 60 mL/min (>60); GLUCOSE 92 mg/dl (70-220); POTASSIUM 4.1 mmol/L (3.5-5.1); SODIUM 138 mmol/L (135-144)
[2018-06-15] MEDS: ISOSORBIDE MONONITRATE(SR)30 MG TAB PO (09:00)
[2018-06-15] MEDS: METOPROLOL 25 MG TAB PO (09:00)
[2018-06-15] MEDS: FLUTICASONE/VILANTEROL 200-25 INH DEVICE INH (09:23)
[2018-06-15] MEDS: GABAPENTIN 300 MG CAP PO ×3 (09:24→20:31)
[2018-06-15] MEDS: SERTRALINE 100 MG TAB PO (09:24)
[2018-06-15] MEDS: BUPROPION (SR) 150 MG TAB PO ×3 (09:24→20:31)
[2018-06-15] MEDS: SENNA TAB PO ×2 (09:24→20:31)
[2018-06-15] MEDS: HYDROXYUREA 500 MG CAP PO (09:26)
[2018-06-15] MEDS: ALPRAZOLAM 0.5 MG TAB PO (11:12)
[2018-06-15] MEDS: ZOLPIDEM 5 MG TAB PO (22:06)
[2018-06-16] MEDS: DIPHENHYDRAMINE 50 MG INJ IV ×6 (00:23→20:35)
[2018-06-16] MEDS: HYDROmorphONE 2 MG/ML SYG IV ×6 (00:23→20:35)
[2018-06-16] MEDS: SOD CHLORIDE 0.45% 1,000 ML IV ×2 (05:07→18:47)
[2018-06-16] MEDS: AL HYDROX/MG HYDROX/SIMETH 30 ML CUP PO ×3 (05:07→20:36)
[2018-06-16] MEDS: PANTOPRAZOLE (EC) 40 MG TAB PO ×2 (05:07→18:47)
[2018-06-16 06:28] LABS: ADD MAN DIFF? NO
[2018-06-16 06:37] LABS: WHITE BLOOD COUNT 8.1 10^3/ul (4.8-10.8)
[2018-06-16 06:37] LABS: BASOPHILS % 0.4 % (0.0-2.0); EOSINOPHILS # 0.4 10^3/ul (0.0-0.5); EOSINOPHILS % 4.7 % (0.0-7.0); HEMATOCRIT 24.4 % (37.0-47.0); HEMOGLOBIN 8.3 g/dl (12.0-16.0); LYMPHOCYTES % 24.9 % (15.0-51.0); MEAN CORPUSCULAR HEMOGLOBIN 25.2 pg (29.0-33.0); MEAN CORPUSCULAR VOLUME 74.2 fl (82.0-101.0); MEAN PLATELET VOLUME 8.9 fl (7.4-10.4); MONOCYTE # 0.7 10^3/ul (0.3-0.9); MONOCYTES % 8.2 % (0.0-11.0); NEUTROPHILS % 61.6 % (39.0-77.0); NUCLEATED RED BLOOD CELLS # 0.1 10^3/ul (0.0-0.0); NUCLEATED RED BLOOD CELLS% 0.7 /100WBC (0.0-0.0); PLATELET COUNT 195 10^3/UL (140-415); RED BLOOD COUNT 3.29 10^6/ul (4.20-5.40); RED CELL DISTRIBUTION WIDTH 20.8 % (11.5-14.5); RETICULOCYTE COUNT # 0.197 X10^6 (0.020-0.110); RETICULOCYTE RBC 3.29
[2018-06-16] MEDS: FLUTICASONE/VILANTEROL 200-25 INH DEVICE INH (08:28)
[2018-06-16] MEDS: SERTRALINE 100 MG TAB PO (08:29)
[2018-06-16] MEDS: BUPROPION (SR) 150 MG TAB PO ×3 (08:30→20:35)
[2018-06-16] MEDS: SENNA TAB PO ×2 (08:30→20:35)
[2018-06-16] MEDS: GABAPENTIN 300 MG CAP PO ×3 (08:30→20:36)
[2018-06-16] MEDS: HYDROXYUREA 500 MG CAP PO (08:30)
[2018-06-16] MEDS: ALPRAZOLAM 0.5 MG TAB PO (11:15)
[2018-06-16] MEDS: ZOLPIDEM 5 MG TAB PO (22:54)
[2018-06-17] MEDS: DIPHENHYDRAMINE 50 MG INJ IV ×6 (00:33→20:27)
[2018-06-17] MEDS: HYDROmorphONE 2 MG/ML SYG IV ×6 (00:34→20:27)
[2018-06-17] MEDS: PANTOPRAZOLE (EC) 40 MG TAB PO ×2 (05:38→17:31)
[2018-06-17] MEDS: AL HYDROX/MG HYDROX/SIMETH 30 ML CUP PO ×3 (05:38→22:13)
[2018-06-17 06:12] LABS: ADD MAN DIFF? NO
[2018-06-17 06:15] LABS: WHITE BLOOD COUNT 7.5 10^3/ul (4.8-10.8)
[2018-06-17 06:15] LABS: BASOPHILS % 0.3 % (0.0-2.0); EOSINOPHILS # 0.4 10^3/ul (0.0-0.5); EOSINOPHILS % 5.4 % (0.0-7.0); HEMATOCRIT 25.5 % (37.0-47.0); HEMOGLOBIN 8.7 g/dl (12.0-16.0); LYMPHOCYTES # 2.2 10^3/ul (0.8-2.9); LYMPHOCYTES % 28.8 % (15.0-51.0); MEAN CORPUSCULAR HEMOGLOBIN 25.2 pg (29.0-33.0); MEAN CORPUSCULAR HGB CONC 34.1 g/dl (32.0-37.0); MEAN CORPUSCULAR VOLUME 73.9 fl (82.0-101.0); MEAN PLATELET VOLUME 8.8 fl (7.4-10.4); MONOCYTE # 0.6 10^3/ul (0.3-0.9); MONOCYTES % 7.4 % (0.0-11.0); NEUTROPHIL # 4.3 10^3/ul (1.6-7.5); NEUTROPHILS % 57.7 % (39.0-77.0); NUCLEATED RED BLOOD CELLS% 0.4 /100WBC (0.0-0.0); PLATELET COUNT 208 10^3/UL (140-415); RED BLOOD COUNT 3.45 10^6/ul (4.20-5.40); RED CELL DISTRIBUTION WIDTH 21.2 % (11.5-14.5)
[2018-06-17 06:17] LABS: RETICULOCYTE COUNT # 0.193 X10^6 (0.020-0.110); RETICULOCYTE COUNT % 5.7 % (0.5-1.5)
[2018-06-17 06:17] LABS: RETICULOCYTE RBC 3.41
[2018-06-17] MEDS: FLUTICASONE/VILANTEROL 200-25 INH DEVICE INH (08:28)
[2018-06-17] MEDS: GABAPENTIN 300 MG CAP PO ×3 (08:28→20:27)
[2018-06-17] MEDS: SENNA TAB PO ×2 (08:28→20:27)
[2018-06-17] MEDS: BUPROPION (SR) 150 MG TAB PO ×3 (08:29→20:27)
[2018-06-17] MEDS: SERTRALINE 100 MG TAB PO (08:29)
[2018-06-17] MEDS: HYDROXYUREA 500 MG CAP PO (08:29)
[2018-06-17] MEDS: ALPRAZOLAM 0.5 MG TAB PO (11:02)
[2018-06-17] MEDS: SOD CHLORIDE 0.45% 1,000 ML IV (16:30)
[2018-06-17] MEDS: ZOLPIDEM 5 MG TAB PO (22:13)
[2018-06-18] MEDS: HYDROmorphONE 2 MG/ML SYG IV ×6 (00:20→20:19)
[2018-06-18] MEDS: DIPHENHYDRAMINE 50 MG INJ IV ×6 (00:21→20:18)
[2018-06-18] MEDS: PANTOPRAZOLE (EC) 40 MG TAB PO ×2 (05:11→18:09)
[2018-06-18] MEDS: AL HYDROX/MG HYDROX/SIMETH 30 ML CUP PO ×3 (05:11→22:32)
[2018-06-18] MEDS: FLUTICASONE/VILANTEROL 200-25 INH DEVICE INH (08:23)
[2018-06-18] MEDS: BUPROPION (SR) 150 MG TAB PO ×3 (08:24→20:17)
[2018-06-18] MEDS: GABAPENTIN 300 MG CAP PO ×3 (08:24→20:17)
[2018-06-18] MEDS: SERTRALINE 100 MG TAB PO (08:24)
[2018-06-18] MEDS: SENNA TAB PO ×2 (08:24→20:18)
[2018-06-18] MEDS: HYDROXYUREA 500 MG CAP PO (08:25)
[2018-06-18] MEDS: ALPRAZOLAM 0.5 MG TAB PO (10:33)
[2018-06-18] MEDS: SOD CHLORIDE 0.45% 1,000 ML IV (12:54)
[2018-06-18] MEDS: ZOLPIDEM 5 MG TAB PO (22:32)
[2018-06-19] MEDS: DIPHENHYDRAMINE 50 MG INJ IV ×6 (00:20→20:20)
[2018-06-19] MEDS: HYDROmorphONE 2 MG/ML SYG IV ×6 (00:20→20:20)
[2018-06-19] MEDS: AL HYDROX/MG HYDROX/SIMETH 30 ML CUP PO ×3 (05:47→22:10)
[2018-06-19] MEDS: PANTOPRAZOLE (EC) 40 MG TAB PO ×2 (05:47→17:29)
[2018-06-19] MEDS: SERTRALINE 100 MG TAB PO (08:16)
[2018-06-19] MEDS: GABAPENTIN 300 MG CAP PO ×3 (08:16→20:17)
[2018-06-19] MEDS: SENNA TAB PO ×2 (08:16→20:17)
[2018-06-19] MEDS: FLUTICASONE/VILANTEROL 200-25 INH DEVICE INH (08:16)
[2018-06-19] MEDS: BUPROPION (SR) 150 MG TAB PO ×3 (08:16→20:17)
[2018-06-19] MEDS: HYDROXYUREA 500 MG CAP PO (08:16)
[2018-06-19] MEDS: CALCIUM CARBONATE 500 MG CHEW TAB PO (09:31)
[2018-06-19] MEDS: ALPRAZOLAM 0.5 MG TAB PO (10:34)
[2018-06-19] MEDS: SOD CHLORIDE 0.45% 1,000 ML IV (12:23)
[2018-06-19] MEDS: ZOLPIDEM 5 MG TAB PO (22:10)
[2018-06-20] MEDS: HYDROmorphONE 2 MG/ML SYG IV ×6 (00:20→20:04)
[2018-06-20] MEDS: DIPHENHYDRAMINE 50 MG INJ IV ×6 (00:20→20:04)
[2018-06-20] MEDS: PANTOPRAZOLE (EC) 40 MG TAB PO ×2 (06:01→17:36)
[2018-06-20] MEDS: AL HYDROX/MG HYDROX/SIMETH 30 ML CUP PO ×3 (06:01→22:04)
[2018-06-20 07:42] LABS: ADD MAN DIFF? NO
[2018-06-20 07:46] LABS: WHITE BLOOD COUNT 8.3 10^3/ul (4.8-10.8)
[2018-06-20 07:46] LABS: BASOPHILS % 0.2 % (0.0-2.0); EOSINOPHILS # 0.7 10^3/ul (0.0-0.5); EOSINOPHILS % 8.9 % (0.0-7.0); HEMATOCRIT 26.2 % (37.0-47.0); HEMOGLOBIN 9.1 g/dl (12.0-16.0); LYMPHOCYTES # 2.1 10^3/ul (0.8-2.9); LYMPHOCYTES % 24.8 % (15.0-51.0); MEAN CORPUSCULAR HEMOGLOBIN 25.5 pg (29.0-33.0); MEAN CORPUSCULAR HGB CONC 34.7 g/dl (32.0-37.0); MEAN CORPUSCULAR VOLUME 73.4 fl (82.0-101.0); MEAN PLATELET VOLUME 8.6 fl (7.4-10.4); MONOCYTE # 0.5 10^3/ul (0.3-0.9); MONOCYTES % 6.1 % (0.0-11.0); NEUTROPHILS % 59.6 % (39.0-77.0); PLATELET COUNT 228 10^3/UL (140-415); RED BLOOD COUNT 3.57 10^6/ul (4.20-5.40); RED CELL DISTRIBUTION WIDTH 21.5 % (11.5-14.5)
[2018-06-20] MEDS: BUPROPION (SR) 150 MG TAB PO ×3 (08:19→20:02)
[2018-06-20] MEDS: SERTRALINE 100 MG TAB PO (08:19)
[2018-06-20] MEDS: SENNA TAB PO ×2 (08:19→20:02)
[2018-06-20] MEDS: GABAPENTIN 300 MG CAP PO ×3 (08:19→20:01)
[2018-06-20] MEDS: FLUTICASONE/VILANTEROL 200-25 INH DEVICE INH (08:20)
[2018-06-20] MEDS: HYDROXYUREA 500 MG CAP PO (08:21)
[2018-06-20 08:34] LABS: ANION GAP 12 (5-13); BLOOD UREA NITROGEN 8 mg/dl (7-20); CALCIUM 8.7 mg/dl (8.4-10.2); CARBON DIOXIDE 28 mmol/L (21-31); CHLORIDE 100 mmol/L (97-110); CREATININE 0.77 mg/dl (0.44-1.00); Estimated GFR > 60 mL/min (>60); GLUCOSE 115 mg/dl (70-220); POTASSIUM 3.8 mmol/L (3.5-5.1); SODIUM 140 mmol/L (135-144)
[2018-06-20] MEDS: ALPRAZOLAM 0.5 MG TAB PO (10:17)
[2018-06-20] MEDS: SOD CHLORIDE 0.45% 1,000 ML IV (12:04)
[2018-06-20] MEDS: ZOLPIDEM 5 MG TAB PO (22:04)
[2018-06-21] MEDS: DIPHENHYDRAMINE 50 MG INJ IV ×6 (00:04→20:01)
[2018-06-21] MEDS: HYDROmorphONE 2 MG/ML SYG IV ×6 (00:04→20:02)
[2018-06-21] MEDS: AL HYDROX/MG HYDROX/SIMETH 30 ML CUP PO ×3 (05:13→22:32)
[2018-06-21] MEDS: PANTOPRAZOLE (EC) 40 MG TAB PO ×2 (05:13→17:40)
[2018-06-21] MEDS: HYDROXYUREA 500 MG CAP PO (09:30)
[2018-06-21] MEDS: SENNA TAB PO ×2 (10:00→20:08)
[2018-06-21] MEDS: GABAPENTIN 300 MG CAP PO ×3 (10:00→20:08)
[2018-06-21] MEDS: FLUTICASONE/VILANTEROL 200-25 INH DEVICE INH (10:00)
[2018-06-21] MEDS: BUPROPION (SR) 150 MG TAB PO ×4 (10:01→20:07)
[2018-06-21] MEDS: SERTRALINE 100 MG TAB PO (10:01)
[2018-06-21] MEDS: ALPRAZOLAM 0.5 MG TAB PO (10:35)
[2018-06-21] MEDS: SOD CHLORIDE 0.45% 1,000 ML IV (11:56)
[2018-06-21] MEDS: ZOLPIDEM 5 MG TAB PO (22:32)
[2018-06-22] MEDS: DIPHENHYDRAMINE 50 MG INJ IV ×6 (00:52→20:29)
[2018-06-22] MEDS: HYDROmorphONE 2 MG/ML SYG IV ×6 (00:52→20:28)
[2018-06-22] MEDS: AL HYDROX/MG HYDROX/SIMETH 30 ML CUP PO ×3 (04:39→20:00)
[2018-06-22] MEDS: PANTOPRAZOLE (EC) 40 MG TAB PO ×2 (04:39→17:49)
[2018-06-22] MEDS: GABAPENTIN 300 MG CAP PO ×3 (08:34→20:00)
[2018-06-22] MEDS: SENNA TAB PO ×2 (08:36→20:00)
[2018-06-22] MEDS: BUPROPION (SR) 150 MG TAB PO ×3 (08:36→20:00)
[2018-06-22] MEDS: SERTRALINE 100 MG TAB PO (08:36)
[2018-06-22] MEDS: FLUTICASONE/VILANTEROL 200-25 INH DEVICE INH (08:37)
[2018-06-22] MEDS: HYDROXYUREA 500 MG CAP PO (08:40)
[2018-06-22 08:41] LABS: ADD MAN DIFF? NO
[2018-06-22 08:52] LABS: BASOPHILS % 0.3 % (0.0-2.0); EOSINOPHILS # 0.7 10^3/ul (0.0-0.5); EOSINOPHILS % 10.3 % (0.0-7.0); LYMPHOCYTES # 1.9 10^3/ul (0.8-2.9); LYMPHOCYTES % 27.8 % (15.0-51.0); MEAN CORPUSCULAR HEMOGLOBIN 25.6 pg (29.0-33.0); MEAN CORPUSCULAR HGB CONC 34.6 g/dl (32.0-37.0); MEAN CORPUSCULAR VOLUME 73.9 fl (82.0-101.0); MEAN PLATELET VOLUME 8.8 fl (7.4-10.4); MONOCYTE # 0.5 10^3/ul (0.3-0.9); MONOCYTES % 7.6 % (0.0-11.0); NEUTROPHIL # 3.8 10^3/ul (1.6-7.5); NEUTROPHILS % 53.7 % (39.0-77.0); PLATELET COUNT 228 10^3/UL (140-415); RED BLOOD COUNT 3.52 10^6/ul (4.20-5.40); RED CELL DISTRIBUTION WIDTH 21.6 % (11.5-14.5)
[2018-06-22] MEDS: ALPRAZOLAM 0.5 MG TAB PO (10:32)
[2018-06-22] MEDS: HEPARIN (100 UNITS/ML) 5 ML SYG CATHETER (20:56)
== END 2018-06-22 21:00 | disposition home or self-care (01) | DRG 368 ==
LOC: PP2 22:33 → E/R 16:54
PROC: 0W3P8ZZ Control Bleeding in Gastrointestinal Tract, Via Natural or Artificial Opening Endoscopic (ICD-10-PCS; principal; 2018-06-07 17:30)
PROC: 0DB68ZX Excision of Stomach, Via Natural or Artificial Opening Endoscopic, Diagnostic (ICD-10-PCS; 2018-06-07 17:30)
DX: K22.6 Gastro-esophageal laceration-hemorrhage syndrome (principal); D57.00 Hb-SS disease with crisis, unspecified; K92.0 Hematemesis; K29.70 Gastritis, unspecified, without bleeding; F41.8 Other specified anxiety disorders; E66.9 Obesity, unspecified; Z68.39 Body mass index [BMI] 39.0-39.9, adult; K21.0 Gastro-esophageal reflux disease with esophagitis
CPT/HCPCS: 36415; 71045; 80048; 80053; 81025; 83690; 84484; 85025; 85045; 85610; 85730; 88305; 93005; 96374; 96375; 97110; 97116; 97162; 97530; 99285-25

== ENCOUNTER 2018-09-20 20:35 | Emergency (ER) | payer MEDICARE, OTHER ==
[2018-09-20] MEDS: DIPHENHYDRAMINE 50 MG INJ IV (21:36)
[2018-09-20] MEDS: SOD CHLORIDE 0.9% 1,000 ML IV (21:36)
[2018-09-20] MEDS: HYDROmorphONE 1 MG/ML SYG IV (21:36)
[2018-09-20 21:40] LABS: ADD MAN DIFF? NO
[2018-09-20 21:43] LABS: WHITE BLOOD COUNT 8.9 10^3/ul (4.8-10.8)
[2018-09-20 21:43] LABS: BASOPHILS % 0.3 % (0.0-2.0); EOSINOPHILS # 0.2 10^3/ul (0.0-0.5); EOSINOPHILS % 1.7 % (0.0-7.0); LYMPHOCYTES # 2.3 10^3/ul (0.8-2.9); MEAN CORPUSCULAR HEMOGLOBIN 25.8 pg (29.0-33.0); MEAN CORPUSCULAR HGB CONC 35.7 g/dl (32.0-37.0); MEAN CORPUSCULAR VOLUME 72.2 fl (82.0-101.0); MEAN PLATELET VOLUME 9.3 fl (7.4-10.4); MONOCYTE # 0.5 10^3/ul (0.3-0.9); MONOCYTES % 5.3 % (0.0-11.0); NEUTROPHIL # 5.9 10^3/ul (1.6-7.5); NEUTROPHILS % 66.4 % (39.0-77.0); PLATELET COUNT 241 10^3/UL (140-415); RED BLOOD COUNT 3.88 10^6/ul (4.20-5.40)
[2018-09-20 21:55] LABS: ALANINE AMINOTRANSFERASE 12 IU/L (13-69); ALBUMIN 3.9 g/dl (3.3-4.9); ALBUMIN/GLOBULIN RATIO 1.34; ALKALINE PHOSPHATASE 82 IU/L (42-121); ANION GAP 11 (5-13); ASPARTATE AMINO TRANSFERASE 25 IU/L (15-46); BILIRUBIN,INDIRECT 0.6 mg/dl (0-1.1); BILIRUBIN,TOTAL 0.6 mg/dl (0.2-1.3); BLOOD UREA NITROGEN 5 mg/dl (7-20); CALCIUM 8.8 mg/dl (8.4-10.2); CARBON DIOXIDE 25 mmol/L (21-31); CHLORIDE 105 mmol/L (97-110); CREATININE 0.74 mg/dl (0.44-1.00); Estimated GFR > 60 mL/min (>60); GLUCOSE 124 mg/dl (70-220); POTASSIUM 3.5 mmol/L (3.5-5.1); SODIUM 141 mmol/L (135-144); TOTAL PROTEIN 6.8 g/dl (6.1-8.1)
[2018-09-20] MEDS: HYDROmorphONE 2 MG/ML SYG IV (23:04)
== END 2018-09-21 00:04 | disposition home or self-care (01) ==
LOC: E/R 09-21 00:04
DX: D57.00 Hb-SS disease with crisis, unspecified (principal); J45.909 Unspecified asthma, uncomplicated; I25.10 Atherosclerotic heart disease of native coronary artery without angina pectoris; E66.9 Obesity, unspecified; Z68.41 Body mass index [BMI] 40.0-44.9, adult; Z96.643 Presence of artificial hip joint, bilateral
CPT/HCPCS: 36415; 80053; 81025; 85025; 93005; 96374; 96375; 96376; 99284-25

== ENCOUNTER 2018-09-24 16:20 | Emergency (ER) | payer MEDICARE, OTHER ==
[2018-09-24] MEDS: HYDROmorphONE 2 MG/ML SYG IV ×3 (19:14→21:57)
[2018-09-24] MEDS: DIPHENHYDRAMINE 50 MG INJ IV ×3 (19:14→21:54)
[2018-09-24 19:24] LABS: ADD MAN DIFF? NO
[2018-09-24 19:28] LABS: WHITE BLOOD COUNT 10.2 10^3/ul (4.8-10.8)
[2018-09-24 19:28] LABS: BASOPHILS % 0.3 % (0.0-2.0); EOSINOPHILS # 0.2 10^3/ul (0.0-0.5); EOSINOPHILS % 1.6 % (0.0-7.0); HEMATOCRIT 27.6 % (37.0-47.0); LYMPHOCYTES # 2.1 10^3/ul (0.8-2.9); LYMPHOCYTES % 21.1 % (15.0-51.0); MEAN CORPUSCULAR HEMOGLOBIN 25.5 pg (29.0-33.0); MEAN CORPUSCULAR HGB CONC 36.2 g/dl (32.0-37.0); MEAN CORPUSCULAR VOLUME 70.4 fl (82.0-101.0); MEAN PLATELET VOLUME 9.5 fl (7.4-10.4); MONOCYTE # 0.6 10^3/ul (0.3-0.9); MONOCYTES % 5.8 % (0.0-11.0); NEUTROPHIL # 7.2 10^3/ul (1.6-7.5); NEUTROPHILS % 70.9 % (39.0-77.0); PLATELET COUNT 231 10^3/UL (140-415); RED BLOOD COUNT 3.92 10^6/ul (4.20-5.40); RED CELL DISTRIBUTION WIDTH 19.3 % (11.5-14.5)
[2018-09-24 19:47] LABS: ANION GAP 9 (5-13); BLOOD UREA NITROGEN 12 mg/dl (7-20); CALCIUM 8.5 mg/dl (8.4-10.2); CARBON DIOXIDE 23 mmol/L (21-31); CHLORIDE 107 mmol/L (97-110); CREATININE 0.72 mg/dl (0.44-1.00); Estimated GFR > 60 mL/min (>60); GLUCOSE 90 mg/dl (70-220); POTASSIUM 3.7 mmol/L (3.5-5.1); SODIUM 139 mmol/L (135-144)
[2018-09-24] MEDS: AL HYDROX/MG HYDROX/SIMETH 30 ML CUP PO (22:41)
[2018-09-24] MEDS: HEPARIN (100 UNITS/ML) 5 ML SYG CATHETER (22:44)
== END 2018-09-24 23:00 | disposition home or self-care (01) ==
LOC: E/R 16:20
DX: G89.29 Other chronic pain (principal); J45.909 Unspecified asthma, uncomplicated; I25.10 Atherosclerotic heart disease of native coronary artery without angina pectoris; E66.9 Obesity, unspecified; Z68.33 Body mass index [BMI] 33.0-33.9, adult; Z96.641 Presence of right artificial hip joint; Z96.642 Presence of left artificial hip joint
CPT/HCPCS: 36415; 80048; 85025; 96374; 96375; 96376; 99284-25

== ENCOUNTER 2018-10-03 11:40 | Inpatient (IN) | payer MEDICARE, OTHER ==
[2018-10-03 14:11] LABS: ADD MAN DIFF? NO
[2018-10-03 14:15] LABS: WHITE BLOOD COUNT 7.9 10^3/ul (4.8-10.8)
[2018-10-03 14:15] LABS: BASOPHILS % 0.4 % (0.0-2.0); EOSINOPHILS # 0.1 10^3/ul (0.0-0.5); EOSINOPHILS % 1.3 % (0.0-7.0); HEMATOCRIT 27.7 % (37.0-47.0); HEMOGLOBIN 9.9 g/dl (12.0-16.0); LYMPHOCYTES # 1.6 10^3/ul (0.8-2.9); LYMPHOCYTES % 20.7 % (15.0-51.0); MEAN CORPUSCULAR HEMOGLOBIN 25.4 pg (29.0-33.0); MEAN CORPUSCULAR HGB CONC 35.7 g/dl (32.0-37.0); MEAN CORPUSCULAR VOLUME 71.2 fl (82.0-101.0); MEAN PLATELET VOLUME 8.9 fl (7.4-10.4); MONOCYTE # 0.5 10^3/ul (0.3-0.9); MONOCYTES % 6.6 % (0.0-11.0); NEUTROPHIL # 5.6 10^3/ul (1.6-7.5); NEUTROPHILS % 70.7 % (39.0-77.0); PLATELET COUNT 228 10^3/UL (140-415); RED BLOOD COUNT 3.89 10^6/ul (4.20-5.40); RED CELL DISTRIBUTION WIDTH 19.6 % (11.5-14.5); RETICULOCYTE COUNT # 0.169 X10^6 (0.020-0.110); RETICULOCYTE COUNT % 4.4 % (0.5-1.5); RETICULOCYTE RBC 3.89
[2018-10-03 14:29] LABS: ALANINE AMINOTRANSFERASE 19 IU/L (13-69); ALBUMIN 4.2 g/dl (3.3-4.9); ALBUMIN/GLOBULIN RATIO 1.27; ALKALINE PHOSPHATASE 90 IU/L (42-121); ANION GAP 9 (5-13); ASPARTATE AMINO TRANSFERASE 23 IU/L (15-46); BILIRUBIN,INDIRECT 0.9 mg/dl (0-1.1); BILIRUBIN,TOTAL 0.9 mg/dl (0.2-1.3); BLOOD UREA NITROGEN 9 mg/dl (7-20); CALCIUM 8.8 mg/dl (8.4-10.2); CARBON DIOXIDE 25 mmol/L (21-31); CHLORIDE 107 mmol/L (97-110); CREATININE 0.79 mg/dl (0.44-1.00); Estimated GFR > 60 mL/min (>60); GLUCOSE 103 mg/dl (70-220); POTASSIUM 3.9 mmol/L (3.5-5.1); SODIUM 141 mmol/L (135-144); TOTAL PROTEIN 7.5 g/dl (6.1-8.1)
[2018-10-03] MEDS: DIPHENHYDRAMINE 50 MG INJ IV ×2 (15:10→19:50)
[2018-10-03] MEDS: KETOROLAC 15 MG INJ IV (15:10)
[2018-10-03] MEDS: HYDROmorphONE 2 MG/ML SYG IV ×3 (15:10→19:50)
[2018-10-03] MEDS: SOD CHLORIDE 0.9% 1,000 ML IV (15:11)
[2018-10-03 15:48] LABS: TROPONIN-I 0.015 ng/ml (0.000-0.120)
[2018-10-03] MEDS ORDERED: ACETAMINOPHEN 325 MG TAB PO ×2 (19:30→22:00)
[2018-10-03] MEDS ORDERED: HYDROmorphONE 2 MG TAB PO (20:00)
[2018-10-03] MEDS ORDERED: CALCIUM CARBONATE 500 MG CHEW TAB PO (21:30)
[2018-10-03] MEDS: SOD CHLORIDE 0.45% 1,000 ML IV (23:29)
[2018-10-03] MEDS: SERTRALINE 100 MG TAB PO (23:30)
[2018-10-03] MEDS: ZOLPIDEM 5 MG TAB PO (23:30)
[2018-10-03] MEDS: GABAPENTIN 300 MG CAP PO (23:30)
[2018-10-04] MEDS: DIPHENHYDRAMINE 50 MG INJ IV ×6 (00:08→20:20)
[2018-10-04] MEDS: HYDROmorphONE 2 MG/ML SYG IV ×6 (00:09→20:20)
[2018-10-04 05:47] LABS: ADD MAN DIFF? NO
[2018-10-04 05:53] LABS: BASOPHILS % 0.5 % (0.0-2.0); EOSINOPHILS # 0.2 10^3/ul (0.0-0.5); EOSINOPHILS % 2.2 % (0.0-7.0); HEMATOCRIT 26.2 % (37.0-47.0); LYMPHOCYTES # 2.6 10^3/ul (0.8-2.9); LYMPHOCYTES % 30.1 % (15.0-51.0); MEAN CORPUSCULAR HEMOGLOBIN 24.7 pg (29.0-33.0); MEAN CORPUSCULAR HGB CONC 34.4 g/dl (32.0-37.0); MEAN PLATELET VOLUME 9.5 fl (7.4-10.4); MONOCYTE # 0.6 10^3/ul (0.3-0.9); MONOCYTES % 6.8 % (0.0-11.0); NEUTROPHIL # 5.2 10^3/ul (1.6-7.5); NEUTROPHILS % 60.2 % (39.0-77.0); PLATELET COUNT 184 10^3/UL (140-415); RED BLOOD COUNT 3.64 10^6/ul (4.20-5.40); RED CELL DISTRIBUTION WIDTH 19.6 % (11.5-14.5)
[2018-10-04 05:53] LABS: WHITE BLOOD COUNT 8.7 10^3/ul (4.8-10.8)
[2018-10-04 06:21] LABS: ANION GAP 7 (5-13); BLOOD UREA NITROGEN 9 mg/dl (7-20); CALCIUM 8.5 mg/dl (8.4-10.2); CARBON DIOXIDE 27 mmol/L (21-31); CHLORIDE 107 mmol/L (97-110); CREATININE 0.78 mg/dl (0.44-1.00); Estimated GFR > 60 mL/min (>60); GLUCOSE 87 mg/dl (70-220); POTASSIUM 3.8 mmol/L (3.5-5.1); SODIUM 141 mmol/L (135-144)
[2018-10-04] MEDS: MULTIVITAMINS THERAPEUTIC TAB PO (08:09)
[2018-10-04] MEDS: SERTRALINE 100 MG TAB PO ×2 (08:09→21:40)
[2018-10-04] MEDS: GABAPENTIN 300 MG CAP PO ×4 (08:09→20:20)
[2018-10-04] MEDS: BUPROPION 100 MG TAB PO ×3 (08:09→20:20)
[2018-10-04] MEDS ORDERED: LATUDA 20 MG PO (09:00)
[2018-10-04] MEDS: HYDROXYUREA 500 MG CAP PO (10:03)
[2018-10-04] MEDS: ALPRAZOLAM 0.5 MG TAB PO (11:05)
[2018-10-04] MEDS: SOD CHLORIDE 0.45% 1,000 ML IV (12:22)
[2018-10-04] MEDS: ZOLPIDEM 5 MG TAB PO (23:29)
[2018-10-05] MEDS: HYDROmorphONE 2 MG/ML SYG IV ×6 (00:14→20:15)
[2018-10-05] MEDS: DIPHENHYDRAMINE 50 MG INJ IV ×6 (00:14→20:16)
[2018-10-05] MEDS: SOD CHLORIDE 0.45% 1,000 ML IV ×2 (04:11→16:09)
[2018-10-05 05:02] LABS: ADD MAN DIFF? NO
[2018-10-05 05:05] LABS: WHITE BLOOD COUNT 9.2 10^3/ul (4.8-10.8)
[2018-10-05 05:05] LABS: BASOPHIL # 0.1 10^3/ul (0.0-0.1); BASOPHILS % 0.5 % (0.0-2.0); EOSINOPHILS # 0.4 10^3/ul (0.0-0.5); EOSINOPHILS % 4.6 % (0.0-7.0); HEMATOCRIT 23.8 % (37.0-47.0); HEMOGLOBIN 8.3 g/dl (12.0-16.0); LYMPHOCYTES # 2.4 10^3/ul (0.8-2.9); LYMPHOCYTES % 26.2 % (15.0-51.0); MEAN CORPUSCULAR HEMOGLOBIN 25.1 pg (29.0-33.0); MEAN CORPUSCULAR HGB CONC 34.9 g/dl (32.0-37.0); MEAN CORPUSCULAR VOLUME 71.9 fl (82.0-101.0); MEAN PLATELET VOLUME 8.9 fl (7.4-10.4); MONOCYTE # 0.6 10^3/ul (0.3-0.9); MONOCYTES % 6.8 % (0.0-11.0); NEUTROPHIL # 5.6 10^3/ul (1.6-7.5); NEUTROPHILS % 61.6 % (39.0-77.0); NUCLEATED RED BLOOD CELLS% 0.3 /100WBC (0.0-0.0); PLATELET COUNT 148 10^3/UL (140-415); RED BLOOD COUNT 3.31 10^6/ul (4.20-5.40); RED CELL DISTRIBUTION WIDTH 19.4 % (11.5-14.5)
[2018-10-05 05:26] LABS: ANION GAP 9 (5-13); BLOOD UREA NITROGEN 9 mg/dl (7-20); CALCIUM 8.4 mg/dl (8.4-10.2); CARBON DIOXIDE 27 mmol/L (21-31); CHLORIDE 104 mmol/L (97-110); CREATININE 0.76 mg/dl (0.44-1.00); Estimated GFR > 60 mL/min (>60); GLUCOSE 98 mg/dl (70-220); POTASSIUM 3.7 mmol/L (3.5-5.1); SODIUM 140 mmol/L (135-144)
[2018-10-05] MEDS: [UNRECOGNIZED DRUG - OTHER] XX ×3 (07:00→23:00)
[2018-10-05] MEDS: GABAPENTIN 300 MG CAP PO ×4 (09:08→20:15)
[2018-10-05] MEDS: SERTRALINE 100 MG TAB PO ×2 (09:09→20:15)
[2018-10-05] MEDS: HYDROXYUREA 500 MG CAP PO (09:10)
[2018-10-05] MEDS: BUPROPION 100 MG TAB PO ×3 (09:11→21:47)
[2018-10-05] MEDS: MULTIVITAMINS THERAPEUTIC TAB PO (09:11)
[2018-10-05] MEDS: ALPRAZOLAM 0.5 MG TAB PO (11:06)
[2018-10-05] MEDS: ZOLPIDEM 5 MG TAB PO (22:55)
[2018-10-06] MEDS: DIPHENHYDRAMINE 50 MG INJ IV ×7 (00:08→23:54)
[2018-10-06] MEDS: HYDROmorphONE 2 MG/ML SYG IV ×7 (00:08→23:57)
[2018-10-06] MEDS: SOD CHLORIDE 0.45% 1,000 ML IV ×3 (06:32→21:30)
[2018-10-06] MEDS: [UNRECOGNIZED DRUG - OTHER] XX ×3 (07:00→23:00)
[2018-10-06] MEDS: GABAPENTIN 300 MG CAP PO ×4 (08:38→20:49)
[2018-10-06] MEDS: MULTIVITAMINS THERAPEUTIC TAB PO (08:38)
[2018-10-06] MEDS: SERTRALINE 100 MG TAB PO ×2 (08:38→20:49)
[2018-10-06] MEDS: BUPROPION 100 MG TAB PO ×3 (08:38→20:49)
[2018-10-06] MEDS: HYDROXYUREA 500 MG CAP PO (08:41)
[2018-10-06] MEDS: ALPRAZOLAM 0.5 MG TAB PO ×2 (10:50→17:36)
[2018-10-06] MEDS: ZOLPIDEM 5 MG TAB PO (23:01)
[2018-10-07] MEDS: HYDROmorphONE 2 MG/ML SYG IV ×5 (03:54→19:59)
[2018-10-07] MEDS: DIPHENHYDRAMINE 50 MG INJ IV ×5 (03:54→19:59)
[2018-10-07] MEDS: [UNRECOGNIZED DRUG - OTHER] XX ×3 (06:15→23:00)
[2018-10-07] MEDS: BUPROPION 100 MG TAB PO ×3 (08:40→20:01)
[2018-10-07] MEDS: SERTRALINE 100 MG TAB PO ×2 (08:40→20:00)
[2018-10-07] MEDS: SOD CHLORIDE 0.45% 1,000 ML IV ×2 (08:41→20:32)
[2018-10-07] MEDS: MULTIVITAMINS THERAPEUTIC TAB PO (08:41)
[2018-10-07] MEDS: GABAPENTIN 300 MG CAP PO ×4 (08:41→20:01)
[2018-10-07] MEDS: HYDROXYUREA 500 MG CAP PO (08:42)
[2018-10-07] MEDS: ALPRAZOLAM 0.5 MG TAB PO ×2 (10:13→18:05)
[2018-10-07] MEDS ORDERED: CHLORDIAZEPOXIDE 25 MG CAP (19:47)
[2018-10-07] MEDS: ZOLPIDEM 5 MG TAB PO (22:58)
[2018-10-08] MEDS: DIPHENHYDRAMINE 50 MG INJ IV ×7 (00:01→23:53)
[2018-10-08] MEDS: HYDROmorphONE 2 MG/ML SYG IV ×7 (00:01→23:53)
[2018-10-08] MEDS: [UNRECOGNIZED DRUG - OTHER] XX ×3 (06:34→22:39)
[2018-10-08] MEDS: BUPROPION 100 MG TAB PO ×3 (08:05→21:18)
[2018-10-08] MEDS: GABAPENTIN 300 MG CAP PO ×4 (08:05→21:18)
[2018-10-08] MEDS: SERTRALINE 100 MG TAB PO ×2 (08:06→21:18)
[2018-10-08] MEDS: MULTIVITAMINS THERAPEUTIC TAB PO (08:06)
[2018-10-08] MEDS: HYDROXYUREA 500 MG CAP PO (08:07)
[2018-10-08] MEDS: SOD CHLORIDE 0.45% 1,000 ML IV ×2 (08:11→22:42)
[2018-10-08 08:19] LABS: ADD MAN DIFF? NO
[2018-10-08 08:25] LABS: WHITE BLOOD COUNT 8.3 10^3/ul (4.8-10.8)
[2018-10-08 08:25] LABS: BASOPHILS % 0.5 % (0.0-2.0); EOSINOPHILS # 0.4 10^3/ul (0.0-0.5); EOSINOPHILS % 5.1 % (0.0-7.0); HEMATOCRIT 22.9 % (37.0-47.0); HEMOGLOBIN 7.8 g/dl (12.0-16.0); LYMPHOCYTES # 2.1 10^3/ul (0.8-2.9); LYMPHOCYTES % 25.1 % (15.0-51.0); MEAN CORPUSCULAR HEMOGLOBIN 25.3 pg (29.0-33.0); MEAN CORPUSCULAR HGB CONC 34.1 g/dl (32.0-37.0); MEAN CORPUSCULAR VOLUME 74.4 fl (82.0-101.0); MEAN PLATELET VOLUME 9.2 fl (7.4-10.4); MONOCYTE # 0.6 10^3/ul (0.3-0.9); MONOCYTES % 7.7 % (0.0-11.0); NEUTROPHIL # 5.1 10^3/ul (1.6-7.5); NEUTROPHILS % 61.2 % (39.0-77.0); NUCLEATED RED BLOOD CELLS # 0.1 10^3/ul (0.0-0.0); NUCLEATED RED BLOOD CELLS% 1.3 /100WBC (0.0-0.0); PLATELET COUNT 147 10^3/UL (140-415); RED BLOOD COUNT 3.08 10^6/ul (4.20-5.40); RED CELL DISTRIBUTION WIDTH 20.2 % (11.5-14.5)
[2018-10-08 08:41] LABS: ANION GAP 8 (5-13); BLOOD UREA NITROGEN 6 mg/dl (7-20); CALCIUM 8.6 mg/dl (8.4-10.2); CARBON DIOXIDE 28 mmol/L (21-31); CHLORIDE 104 mmol/L (97-110); CREATININE 0.74 mg/dl (0.44-1.00); Estimated GFR > 60 mL/min (>60); GLUCOSE 90 mg/dl (70-220); POTASSIUM 3.9 mmol/L (3.5-5.1); SODIUM 140 mmol/L (135-144)
[2018-10-08] MEDS: ALPRAZOLAM 0.5 MG TAB PO ×2 (10:30→17:32)
[2018-10-08] MEDS: ZOLPIDEM 5 MG TAB PO (22:41)
[2018-10-09] MEDS: HYDROmorphONE 2 MG/ML SYG IV ×6 (03:53→23:55)
[2018-10-09] MEDS: DIPHENHYDRAMINE 50 MG INJ IV ×6 (03:54→23:55)
[2018-10-09 05:31] LABS: ADD MAN DIFF? NO
[2018-10-09 05:36] LABS: WHITE BLOOD COUNT 8.5 10^3/ul (4.8-10.8)
[2018-10-09 05:36] LABS: BASOPHILS % 0.5 % (0.0-2.0); EOSINOPHILS # 0.4 10^3/ul (0.0-0.5); EOSINOPHILS % 5.1 % (0.0-7.0); HEMATOCRIT 22.4 % (37.0-47.0); HEMOGLOBIN 7.8 g/dl (12.0-16.0); LYMPHOCYTES # 2.3 10^3/ul (0.8-2.9); LYMPHOCYTES % 26.5 % (15.0-51.0); MEAN CORPUSCULAR HEMOGLOBIN 25.9 pg (29.0-33.0); MEAN CORPUSCULAR HGB CONC 34.8 g/dl (32.0-37.0); MEAN CORPUSCULAR VOLUME 74.4 fl (82.0-101.0); MEAN PLATELET VOLUME 8.9 fl (7.4-10.4); MONOCYTE # 0.6 10^3/ul (0.3-0.9); MONOCYTES % 7.4 % (0.0-11.0); NEUTROPHIL # 5.1 10^3/ul (1.6-7.5); NEUTROPHILS % 59.8 % (39.0-77.0); NUCLEATED RED BLOOD CELLS # 0.1 10^3/ul (0.0-0.0); NUCLEATED RED BLOOD CELLS% 1.7 /100WBC (0.0-0.0); PLATELET COUNT 145 10^3/UL (140-415); RED BLOOD COUNT 3.01 10^6/ul (4.20-5.40); RED CELL DISTRIBUTION WIDTH 20.1 % (11.5-14.5)
[2018-10-09 06:10] LABS: ANION GAP 5 (5-13); BLOOD UREA NITROGEN 8 mg/dl (7-20); CALCIUM 8.6 mg/dl (8.4-10.2); CARBON DIOXIDE 29 mmol/L (21-31); CHLORIDE 104 mmol/L (97-110); CREATININE 0.74 mg/dl (0.44-1.00); Estimated GFR > 60 mL/min (>60); GLUCOSE 92 mg/dl (70-220); POTASSIUM 3.6 mmol/L (3.5-5.1); SODIUM 138 mmol/L (135-144)
[2018-10-09] MEDS: [UNRECOGNIZED DRUG - OTHER] XX ×3 (07:00→22:20)
[2018-10-09] MEDS: HYDROXYUREA 500 MG CAP PO (08:01)
[2018-10-09] MEDS: MULTIVITAMINS THERAPEUTIC TAB PO (08:02)
[2018-10-09] MEDS: SERTRALINE 100 MG TAB PO ×2 (08:02→20:03)
[2018-10-09] MEDS: GABAPENTIN 300 MG CAP PO ×4 (08:02→20:03)
[2018-10-09] MEDS: BUPROPION 100 MG TAB PO ×3 (08:02→20:03)
[2018-10-09] MEDS: ALPRAZOLAM 0.5 MG TAB PO ×2 (10:28→17:42)
[2018-10-09] MEDS: SOD CHLORIDE 0.45% 1,000 ML IV (12:04)
[2018-10-09] MEDS: ZOLPIDEM 5 MG TAB PO (22:51)
[2018-10-10] MEDS: SOD CHLORIDE 0.45% 1,000 ML IV ×3 (03:06→16:11)
[2018-10-10] MEDS: ALPRAZOLAM 0.5 MG TAB PO ×3 (03:06→17:43)
[2018-10-10] MEDS: DIPHENHYDRAMINE 50 MG INJ IV ×5 (03:52→19:59)
[2018-10-10] MEDS: HYDROmorphONE 2 MG/ML SYG IV ×5 (03:53→19:57)
[2018-10-10] MEDS: [UNRECOGNIZED DRUG - OTHER] XX (06:49)
[2018-10-10] MEDS: GABAPENTIN 300 MG CAP PO ×4 (09:01→20:00)
[2018-10-10] MEDS: SERTRALINE 100 MG TAB PO ×2 (09:01→20:00)
[2018-10-10] MEDS: MULTIVITAMINS THERAPEUTIC TAB PO (09:01)
[2018-10-10] MEDS: BUPROPION 100 MG TAB PO ×3 (09:01→20:01)
[2018-10-10] MEDS: HYDROXYUREA 500 MG CAP PO (09:02)
[2018-10-10 11:15] LABS: ADD MAN DIFF? NO
[2018-10-10 11:27] LABS: BASOPHILS % 0.3 % (0.0-2.0); EOSINOPHILS # 0.4 10^3/ul (0.0-0.5); EOSINOPHILS % 4.7 % (0.0-7.0); HEMATOCRIT 22.6 % (37.0-47.0); HEMOGLOBIN 7.9 g/dl (12.0-16.0); LYMPHOCYTES # 2.1 10^3/ul (0.8-2.9); LYMPHOCYTES % 26.6 % (15.0-51.0); MEAN CORPUSCULAR HEMOGLOBIN 25.9 pg (29.0-33.0); MEAN CORPUSCULAR VOLUME 74.1 fl (82.0-101.0); MONOCYTE # 0.6 10^3/ul (0.3-0.9); MONOCYTES % 7.1 % (0.0-11.0); NEUTROPHIL # 4.7 10^3/ul (1.6-7.5); NEUTROPHILS % 60.9 % (39.0-77.0); NUCLEATED RED BLOOD CELLS # 0.1 10^3/ul (0.0-0.0); NUCLEATED RED BLOOD CELLS% 1.3 /100WBC (0.0-0.0); PLATELET COUNT 157 10^3/UL (140-415); RED BLOOD COUNT 3.05 10^6/ul (4.20-5.40); RED CELL DISTRIBUTION WIDTH 20.6 % (11.5-14.5)
[2018-10-10 11:27] LABS: WHITE BLOOD COUNT 7.7 10^3/ul (4.8-10.8)
[2018-10-10] MEDS: ZOLPIDEM 5 MG TAB PO (23:22)
[2018-10-11] MEDS: HYDROmorphONE 2 MG/ML SYG IV ×7 (00:06→23:59)
[2018-10-11] MEDS: DIPHENHYDRAMINE 50 MG INJ IV ×7 (00:07→23:59)
[2018-10-11] MEDS: SOD CHLORIDE 0.45% 1,000 ML IV ×3 (01:36→20:05)
[2018-10-11] MEDS: BUPROPION 100 MG TAB PO ×3 (07:57→20:06)
[2018-10-11] MEDS: HYDROXYUREA 500 MG CAP PO (07:57)
[2018-10-11] MEDS: GABAPENTIN 300 MG CAP PO ×4 (07:57→20:06)
[2018-10-11] MEDS: SERTRALINE 100 MG TAB PO ×2 (07:57→20:06)
[2018-10-11] MEDS: MULTIVITAMINS THERAPEUTIC TAB PO (07:57)
[2018-10-11 09:33] LABS: ADD MAN DIFF? NO
[2018-10-11 09:38] LABS: WHITE BLOOD COUNT 7.8 10^3/ul (4.8-10.8)
[2018-10-11 09:38] LABS: BASOPHILS % 0.4 % (0.0-2.0); EOSINOPHILS # 0.3 10^3/ul (0.0-0.5); EOSINOPHILS % 4.2 % (0.0-7.0); HEMATOCRIT 24.4 % (37.0-47.0); HEMOGLOBIN 8.4 g/dl (12.0-16.0); LYMPHOCYTES % 25.3 % (15.0-51.0); MEAN CORPUSCULAR HEMOGLOBIN 25.5 pg (29.0-33.0); MEAN CORPUSCULAR HGB CONC 34.4 g/dl (32.0-37.0); MEAN CORPUSCULAR VOLUME 73.9 fl (82.0-101.0); MEAN PLATELET VOLUME 8.8 fl (7.4-10.4); MONOCYTE # 0.6 10^3/ul (0.3-0.9); MONOCYTES % 7.1 % (0.0-11.0); NEUTROPHIL # 4.9 10^3/ul (1.6-7.5); NEUTROPHILS % 62.6 % (39.0-77.0); NUCLEATED RED BLOOD CELLS # 0.1 10^3/ul (0.0-0.0); PLATELET COUNT 166 10^3/UL (140-415); RED CELL DISTRIBUTION WIDTH 21.1 % (11.5-14.5)
[2018-10-11] MEDS: ALPRAZOLAM 0.5 MG TAB PO ×2 (10:16→17:10)
[2018-10-11] MEDS: ZOLPIDEM 5 MG TAB PO (22:56)
[2018-10-12] MEDS: ALPRAZOLAM 0.5 MG TAB PO ×3 (03:16→17:49)
[2018-10-12] MEDS: DIPHENHYDRAMINE 50 MG INJ IV ×5 (03:59→19:59)
[2018-10-12] MEDS: HYDROmorphONE 2 MG/ML SYG IV ×5 (03:59→20:00)
[2018-10-12] MEDS: BUPROPION 100 MG TAB PO ×3 (08:06→20:00)
[2018-10-12] MEDS: HYDROXYUREA 500 MG CAP PO (08:06)
[2018-10-12] MEDS: MULTIVITAMINS THERAPEUTIC TAB PO (08:07)
[2018-10-12] MEDS: GABAPENTIN 300 MG CAP PO ×4 (08:07→20:00)
[2018-10-12] MEDS: SERTRALINE 100 MG TAB PO ×2 (08:07→20:00)
[2018-10-12 11:02] LABS: ADD MAN DIFF? NO
[2018-10-12 11:06] LABS: WHITE BLOOD COUNT 7.8 10^3/ul (4.8-10.8)
[2018-10-12 11:06] LABS: BASOPHILS % 0.4 % (0.0-2.0); EOSINOPHILS # 0.4 10^3/ul (0.0-0.5); EOSINOPHILS % 4.6 % (0.0-7.0); HEMATOCRIT 24.5 % (37.0-47.0); HEMOGLOBIN 8.5 g/dl (12.0-16.0); LYMPHOCYTES # 2.3 10^3/ul (0.8-2.9); LYMPHOCYTES % 29.7 % (15.0-51.0); MEAN CORPUSCULAR HEMOGLOBIN 25.5 pg (29.0-33.0); MEAN CORPUSCULAR HGB CONC 34.7 g/dl (32.0-37.0); MEAN CORPUSCULAR VOLUME 73.6 fl (82.0-101.0); MONOCYTE # 0.5 10^3/ul (0.3-0.9); MONOCYTES % 6.7 % (0.0-11.0); NEUTROPHIL # 4.6 10^3/ul (1.6-7.5); NEUTROPHILS % 58.3 % (39.0-77.0); NUCLEATED RED BLOOD CELLS # 0.1 10^3/ul (0.0-0.0); NUCLEATED RED BLOOD CELLS% 0.6 /100WBC (0.0-0.0); PLATELET COUNT 173 10^3/UL (140-415); RED BLOOD COUNT 3.33 10^6/ul (4.20-5.40); RED CELL DISTRIBUTION WIDTH 21.2 % (11.5-14.5)
[2018-10-12] MEDS: SOD CHLORIDE 0.9% 1,000 ML IV (15:47)
[2018-10-12] MEDS: ZOLPIDEM 5 MG TAB PO (23:05)
[2018-10-13] MEDS: HYDROmorphONE 2 MG/ML SYG IV ×6 (00:03→20:06)
[2018-10-13] MEDS: DIPHENHYDRAMINE 50 MG INJ IV ×6 (00:03→20:06)
[2018-10-13] MEDS: ALPRAZOLAM 0.5 MG TAB PO ×3 (03:07→17:31)
[2018-10-13 05:34] LABS: ADD MAN DIFF? NO
[2018-10-13 05:38] LABS: BASOPHILS % 0.4 % (0.0-2.0); EOSINOPHILS # 0.3 10^3/ul (0.0-0.5); EOSINOPHILS % 3.8 % (0.0-7.0); HEMATOCRIT 23.7 % (37.0-47.0); HEMOGLOBIN 8.1 g/dl (12.0-16.0); LYMPHOCYTES # 2.2 10^3/ul (0.8-2.9); MEAN CORPUSCULAR HEMOGLOBIN 25.4 pg (29.0-33.0); MEAN CORPUSCULAR HGB CONC 34.2 g/dl (32.0-37.0); MEAN CORPUSCULAR VOLUME 74.3 fl (82.0-101.0); MEAN PLATELET VOLUME 9.1 fl (7.4-10.4); MONOCYTE # 0.6 10^3/ul (0.3-0.9); MONOCYTES % 7.9 % (0.0-11.0); NEUTROPHIL # 4.9 10^3/ul (1.6-7.5); NEUTROPHILS % 60.5 % (39.0-77.0); NUCLEATED RED BLOOD CELLS # 0.1 10^3/ul (0.0-0.0); PLATELET COUNT 171 10^3/UL (140-415); RED BLOOD COUNT 3.19 10^6/ul (4.20-5.40); RED CELL DISTRIBUTION WIDTH 21.2 % (11.5-14.5)
[2018-10-13 05:38] LABS: WHITE BLOOD COUNT 8.1 10^3/ul (4.8-10.8)
[2018-10-13 06:07] LABS: ANION GAP 7 (5-13); BLOOD UREA NITROGEN 10 mg/dl (7-20); CALCIUM 8.5 mg/dl (8.4-10.2); CARBON DIOXIDE 29 mmol/L (21-31); CHLORIDE 102 mmol/L (97-110); CREATININE 0.74 mg/dl (0.44-1.00); Estimated GFR > 60 mL/min (>60); GLUCOSE 89 mg/dl (70-220); SODIUM 138 mmol/L (135-144)
[2018-10-13] MEDS: SOD CHLORIDE 0.9% 1,000 ML IV (07:54)
[2018-10-13] MEDS: MULTIVITAMINS THERAPEUTIC TAB PO (07:56)
[2018-10-13] MEDS: BUPROPION 100 MG TAB PO ×3 (07:56→20:00)
[2018-10-13] MEDS: SERTRALINE 100 MG TAB PO ×2 (07:56→20:00)
[2018-10-13] MEDS: GABAPENTIN 300 MG CAP PO ×4 (07:56→20:00)
[2018-10-13] MEDS: HYDROXYUREA 500 MG CAP PO (07:57)
[2018-10-13] MEDS: ZOLPIDEM 5 MG TAB PO (22:50)
[2018-10-14] MEDS: ALPRAZOLAM 0.5 MG TAB PO ×3 (02:21→18:10)
[2018-10-14] MEDS: HYDROmorphONE 2 MG/ML SYG IV ×7 (04:00→23:59)
[2018-10-14] MEDS: DIPHENHYDRAMINE 50 MG INJ IV ×7 (04:00→23:59)
[2018-10-14 06:03] LABS: WHITE BLOOD COUNT 7.3 10^3/ul (4.8-10.8)
[2018-10-14 06:03] LABS: ADD MAN DIFF? NO; BASOPHILS % 0.4 % (0.0-2.0); EOSINOPHILS # 0.3 10^3/ul (0.0-0.5); EOSINOPHILS % 4.1 % (0.0-7.0); HEMOGLOBIN 7.8 g/dl (12.0-16.0); MEAN CORPUSCULAR HEMOGLOBIN 25.5 pg (29.0-33.0); MEAN CORPUSCULAR HGB CONC 33.9 g/dl (32.0-37.0); MEAN CORPUSCULAR VOLUME 75.2 fl (82.0-101.0); MEAN PLATELET VOLUME 9.3 fl (7.4-10.4); MONOCYTE # 0.6 10^3/ul (0.3-0.9); MONOCYTES % 8.4 % (0.0-11.0); NEUTROPHIL # 4.3 10^3/ul (1.6-7.5); NEUTROPHILS % 58.7 % (39.0-77.0); NUCLEATED RED BLOOD CELLS # 0.1 10^3/ul (0.0-0.0); NUCLEATED RED BLOOD CELLS% 0.8 /100WBC (0.0-0.0); PLATELET COUNT 153 10^3/UL (140-415); RED BLOOD COUNT 3.06 10^6/ul (4.20-5.40); RED CELL DISTRIBUTION WIDTH 21.5 % (11.5-14.5)
[2018-10-14 07:14] LABS: ANION GAP 5 (5-13); BLOOD UREA NITROGEN 8 mg/dl (7-20); CALCIUM 8.3 mg/dl (8.4-10.2); CARBON DIOXIDE 28 mmol/L (21-31); CHLORIDE 104 mmol/L (97-110); CREATININE 0.67 mg/dl (0.44-1.00); Estimated GFR > 60 mL/min (>60); GLUCOSE 93 mg/dl (70-220); POTASSIUM 3.8 mmol/L (3.5-5.1); SODIUM 137 mmol/L (135-144)
[2018-10-14] MEDS: SERTRALINE 100 MG TAB PO ×2 (08:53→20:00)
[2018-10-14] MEDS: BUPROPION 100 MG TAB PO ×3 (08:53→20:01)
[2018-10-14] MEDS: GABAPENTIN 300 MG CAP PO ×4 (08:55→20:00)
[2018-10-14] MEDS: HYDROXYUREA 500 MG CAP PO (08:55)
[2018-10-14] MEDS: MULTIVITAMINS THERAPEUTIC TAB PO (08:57)
[2018-10-14] MEDS: SOD CHLORIDE 0.9% 1,000 ML IV ×2 (17:09)
[2018-10-14] MEDS: ZOLPIDEM 5 MG TAB PO (22:45)
[2018-10-15] MEDS: ALPRAZOLAM 0.5 MG TAB PO ×3 (03:05→18:07)
[2018-10-15] MEDS: HYDROmorphONE 2 MG/ML SYG IV ×6 (04:10→23:58)
[2018-10-15] MEDS: DIPHENHYDRAMINE 50 MG INJ IV ×6 (04:10→23:58)
[2018-10-15 05:17] LABS: ADD MAN DIFF? NO
[2018-10-15 05:19] LABS: BASOPHILS % 0.3 % (0.0-2.0); EOSINOPHILS # 0.3 10^3/ul (0.0-0.5); EOSINOPHILS % 4.5 % (0.0-7.0); HEMATOCRIT 23.7 % (37.0-47.0); HEMOGLOBIN 8.1 g/dl (12.0-16.0); LYMPHOCYTES % 28.4 % (15.0-51.0); MEAN CORPUSCULAR HEMOGLOBIN 25.8 pg (29.0-33.0); MEAN CORPUSCULAR HGB CONC 34.2 g/dl (32.0-37.0); MEAN CORPUSCULAR VOLUME 75.5 fl (82.0-101.0); MEAN PLATELET VOLUME 9.5 fl (7.4-10.4); MONOCYTE # 0.6 10^3/ul (0.3-0.9); MONOCYTES % 7.8 % (0.0-11.0); NEUTROPHIL # 4.2 10^3/ul (1.6-7.5); NEUTROPHILS % 58.6 % (39.0-77.0); NUCLEATED RED BLOOD CELLS # 0.1 10^3/ul (0.0-0.0); NUCLEATED RED BLOOD CELLS% 0.8 /100WBC (0.0-0.0); PLATELET COUNT 176 10^3/UL (140-415); RED BLOOD COUNT 3.14 10^6/ul (4.20-5.40); RED CELL DISTRIBUTION WIDTH 21.7 % (11.5-14.5)
[2018-10-15 05:19] LABS: WHITE BLOOD COUNT 7.2 10^3/ul (4.8-10.8)
[2018-10-15 05:53] LABS: ANION GAP 6 (5-13); BLOOD UREA NITROGEN 8 mg/dl (7-20); CALCIUM 8.5 mg/dl (8.4-10.2); CARBON DIOXIDE 29 mmol/L (21-31); CHLORIDE 103 mmol/L (97-110); CREATININE 0.68 mg/dl (0.44-1.00); Estimated GFR > 60 mL/min (>60); GLUCOSE 91 mg/dl (70-220); SODIUM 138 mmol/L (135-144)
[2018-10-15 06:08] LABS: POTASSIUM 4.1 mmol/L (3.5-5.1)
[2018-10-15] MEDS: SERTRALINE 100 MG TAB PO ×2 (08:35→20:00)
[2018-10-15] MEDS: MULTIVITAMINS THERAPEUTIC TAB PO (08:35)
[2018-10-15] MEDS: GABAPENTIN 300 MG CAP PO ×4 (08:35→20:00)
[2018-10-15] MEDS: BUPROPION 100 MG TAB PO ×3 (08:35→20:01)
[2018-10-15] MEDS: HYDROXYUREA 500 MG CAP PO (08:38)
[2018-10-15] MEDS: SOD CHLORIDE 0.9% 1,000 ML IV ×2 (09:10→21:15)
[2018-10-15] MEDS: ZOLPIDEM 5 MG TAB PO (22:50)
[2018-10-16] MEDS: ALPRAZOLAM 0.5 MG TAB PO ×3 (03:03→18:12)
[2018-10-16] MEDS: DIPHENHYDRAMINE 50 MG INJ IV ×6 (03:57→23:58)
[2018-10-16] MEDS: HYDROmorphONE 2 MG/ML SYG IV ×6 (03:58→23:58)
[2018-10-16] MEDS: BUPROPION 100 MG TAB PO ×3 (08:38→20:01)
[2018-10-16] MEDS: MULTIVITAMINS THERAPEUTIC TAB PO (08:38)
[2018-10-16] MEDS: GABAPENTIN 300 MG CAP PO ×4 (08:38→20:01)
[2018-10-16] MEDS: HYDROXYUREA 500 MG CAP PO (08:38)
[2018-10-16] MEDS: SERTRALINE 100 MG TAB PO ×2 (08:38→20:01)
[2018-10-16] MEDS: SOD CHLORIDE 0.9% 1,000 ML IV (15:59)
[2018-10-16] MEDS: ZOLPIDEM 5 MG TAB PO (22:40)
[2018-10-17] MEDS: ALPRAZOLAM 0.5 MG TAB PO ×3 (02:48→18:21)
[2018-10-17] MEDS: DIPHENHYDRAMINE 50 MG INJ IV ×4 (04:01→16:01)
[2018-10-17] MEDS: HYDROmorphONE 2 MG/ML SYG IV ×5 (04:01→19:57)
[2018-10-17] MEDS: HYDROXYUREA 500 MG CAP PO (08:41)
[2018-10-17] MEDS: SERTRALINE 100 MG TAB PO ×2 (08:42→20:01)
[2018-10-17] MEDS: BUPROPION 100 MG TAB PO ×3 (08:42→20:01)
[2018-10-17] MEDS: GABAPENTIN 300 MG CAP PO ×4 (08:42→20:01)
[2018-10-17] MEDS: MULTIVITAMINS THERAPEUTIC TAB PO (08:42)
[2018-10-17] MEDS: SOD CHLORIDE 0.9% 1,000 ML IV (10:54)
[2018-10-17] MEDS: ZOLPIDEM 5 MG TAB PO (22:51)
[2018-10-18] MEDS: ALPRAZOLAM 0.5 MG TAB PO ×3 (03:01→18:04)
[2018-10-18] MEDS: HYDROmorphONE 2 MG/ML SYG IV ×6 (04:07→20:01)
[2018-10-18] MEDS: DIPHENHYDRAMINE 50 MG INJ IV ×6 (04:07→20:01)
[2018-10-18 05:53] LABS: ADD MAN DIFF? NO
[2018-10-18 05:58] LABS: BASOPHILS % 0.4 % (0.0-2.0); EOSINOPHILS # 0.3 10^3/ul (0.0-0.5); EOSINOPHILS % 4.9 % (0.0-7.0); HEMOGLOBIN 8.3 g/dl (12.0-16.0); LYMPHOCYTES # 2.1 10^3/ul (0.8-2.9); LYMPHOCYTES % 30.7 % (15.0-51.0); MEAN CORPUSCULAR HEMOGLOBIN 25.1 pg (29.0-33.0); MEAN CORPUSCULAR HGB CONC 33.2 g/dl (32.0-37.0); MEAN CORPUSCULAR VOLUME 75.5 fl (82.0-101.0); MONOCYTE # 0.7 10^3/ul (0.3-0.9); MONOCYTES % 10.3 % (0.0-11.0); NEUTROPHIL # 3.6 10^3/ul (1.6-7.5); NEUTROPHILS % 53.6 % (39.0-77.0); NUCLEATED RED BLOOD CELLS% 0.4 /100WBC (0.0-0.0); PLATELET COUNT 174 10^3/UL (140-415); RED BLOOD COUNT 3.31 10^6/ul (4.20-5.40)
[2018-10-18 05:58] LABS: WHITE BLOOD COUNT 6.8 10^3/ul (4.8-10.8)
[2018-10-18 06:13] LABS: RETICULOCYTE RBC 3.21
[2018-10-18 06:13] LABS: RETICULOCYTE COUNT # 0.191 X10^6 (0.020-0.110)
[2018-10-18] MEDS: SOD CHLORIDE 0.9% 1,000 ML IV (06:39)
[2018-10-18] MEDS: MULTIVITAMINS THERAPEUTIC TAB PO (07:55)
[2018-10-18] MEDS: GABAPENTIN 300 MG CAP PO ×4 (07:57→20:00)
[2018-10-18] MEDS: HYDROXYUREA 500 MG CAP PO (07:57)
[2018-10-18] MEDS: SERTRALINE 100 MG TAB PO ×2 (07:58→20:00)
[2018-10-18] MEDS: BUPROPION 100 MG TAB PO ×3 (07:58→20:00)
[2018-10-18] MEDS: HEPARIN (100 UNITS/ML) 5 ML SYG CATHETER (21:19)
== END 2018-10-18 21:30 | disposition home or self-care (01) | DRG 812 ==
LOC: 5EC 10-04 11:35 → E/R 11:40 → 2NE 19:26
PROC: 5A09457 Assistance with Respiratory Ventilation, 24-96 Consecutive Hours, Continuous Positive Airway Pressure (ICD-10-PCS; principal; 2018-10-04)
DX: D57.00 Hb-SS disease with crisis, unspecified (principal); Z68.41 Body mass index [BMI] 40.0-44.9, adult; E66.9 Obesity, unspecified; G47.30 Sleep apnea, unspecified; F32.9 Major depressive disorder, single episode, unspecified; F41.9 Anxiety disorder, unspecified
CPT/HCPCS: 71045; 80048; 80053; 81025; 84484; 85025; 85045; 93005; 94660; 96374; 96375; 96376; 97110; 97116; 97161; 97530; 99285-25